=== PATIENT | female | born 1955 | race Caucasian/White ===

== ENCOUNTER 2017-07-14 08:27 | Emergency (ER) | payer MEDICARE, MEDICAID ==
--- NOTE | 2017-07-14 09:18 | RAD ---
PORTABLE UPRIGHT FRONTAL CHEST RADIOGRAPH: DATE: 07/14/17. COMPARISON: 10/07/14. HISTORY: Headache and increasing shortness of breath. FINDINGS: There is no pneumothorax or pleural fluid and no focal consolidation or alveolar edema. Heart and me diastinal contours appear within normal limits. IMPRESSION: No acute findings. POS: [facility]
[2017-07-14] MEDS ORDERED: Amlodipine 5 MG TAB ONE (09:53)
[2017-07-14] MEDS ORDERED: Acetaminophen 500 MG TAB ONE (09:53)
--- NOTE | 2017-07-14 10:03 | CT ---
HEAD CT WITHOUT CONTRAST: Date: 07-14-17 Comparison: 10-07-14 History: Headache and shortness of breath. Technique: Serial axial CT imaging at 5 mm intervals from vertex through skull base without contrast. FINDINGS: The imaged paranasal sinuses and mastoid air cells are well aerated. There is atherosclerotic calcifi cation of the cavernous carotid arteries. There is no displaced calvarial fracture. There is extensive encephalomalacia involving the left cerebral hemisphere, evidence of prior extensi ve left MCA infarction. Hypodensity noted within the posterior inferior left cerebellar hemisphere, c onsistent with areas of prior ischemia/insult as well. No intracranial hemorrhage, midline shift, or mass effect. IMPRESSION: Stable head CT as detailed above. No intracranial hemorrhage or displaced calvarial fracture. POS: [facility]
[2017-07-14 10:24] LABS: Bilirubin Negative (Negative); Blood, Urine Small (Negative); Glucose, Urine (Dipstick) Negative (Negative); Ketone, Urine Negative (Negative); Nitrite Negative (Negative); Protein, Urine (Dipstick) 300 mg/dL (Neg-Trace); Urobilinogen 0.2 mg/dL (0.2-1.0)
[2017-07-14 10:26] LABS: Bacteria/HPF None Seen HPF (None Seen); Hyaline Casts/LPF 0-3 HYALINE CAST LPF (0-3 Hyaline); Squamous Epithelial 0-3 HPF (0-3); WBC/HPF 0-3 HPF (0-3)
[2017-07-14] MEDS ORDERED: methylPREDNISolone Sod Succ/PF 125 MG/2 ML VIAL ONE (10:56)
[2017-07-14] MEDS ORDERED: Water For Inject, Bacteriostat 30 ML ONE (10:57)
[2017-07-14 11:24] LABS: #Basophils 0.1 thou/uL (0.0-0.2); #Lymphocytes 2.6 thou/uL (1.20-3.40); #Monocytes 1.2 thou/uL (0.11-0.59); #Neutrophils 9.9 thou/uL (1.40-6.50); %Basophils 0.5 % (0.0-1.0); %Eosinophils 0.3 % (0.0-10.0); %Lymphocytes 18.7 % (21.0-51.0); %Monocytes 8.4 % (0.0-10.0); Red Blood Cell (RBC) Count 4.09 mill/uL (4.20-5.40); White Blood Cell (WBC) Count 13.7 thou/uL (4.8-10.8)
[2017-07-14 11:37] LABS: PTT 59.3 SEC (22.9-36.1); Prothrombin Time 27.5 SEC (12.0-14.7)
[2017-07-14 11:49] LABS: ALT (SGPT) 40 U/L (8-55); AST (SGOT) 43 U/L (5-34); Alkaline Phosphatase 121 U/L (40-150); Anion Gap 17 mmol/L (10-20); BUN (Urea Nitrogen) 15 mg/dL (9.8-20.1); Bilirubin, Total 0.5 mg/dL (0.2-1.2); CK (CPK) 53 U/L (29-168); Calc. Creatinine Clearance 0 mL/min (70-130); Calcium 9.3 mg/dL (7.8-10.44); Carbon Dioxide 23 mmol/L (22-29); Chloride 100 mmol/L (98-107); Estimated GFR-MDRD 66; Globulin 3.7 g/dL (2.4-3.5); Protein, Total 7.6 g/dL (6.0-8.3)
[2017-07-14 12:07] LABS: Troponin I Less than 0.010 ng/mL (< 0.028)
--- NOTE | 2017-07-16 15:40 | EKG ---
Test Reason : Blood Pressure : / mmHG Vent. Rate : 110 BPM Atrial Rate : 110 BPM P-R Int : 176 ms QRS Dur : 100 ms QT Int : 344 ms P-R-T Axes : 066 067 034 degrees QTc Int : 465 ms Sinus tachycardia with occasional Premature ventricular complexes Otherwise normal ECG Confirmed by JONI ALVARADO D.O. ([id number]), supervising film or videotape editor ALMAS ROJO ([id number] on 07/16/2017 3:39:56 PM Referred By: Confirmed By:JONI ALVARADO D.O.
== END 2017-07-14 14:47 | disposition home or self-care (01) ==
LOC: ERS 08:27
DX: J44.1 Chronic obstructive pulmonary disease with (acute) exacerbation (principal); J20.9 Acute bronchitis, unspecified; J44.0 Chronic obstructive pulmonary disease with (acute) lower respiratory infection; I10 Essential (primary) hypertension; D50.9 Iron deficiency anemia, unspecified; E11.9 Type 2 diabetes mellitus without complications; E78.2 Mixed hyperlipidemia; Z79.84 Long term (current) use of oral hypoglycemic drugs; Z79.899 Other long term (current) drug therapy; Z79.01 Long term (current) use of anticoagulants; Z86.73 Personal history of transient ischemic attack (TIA), and cerebral infarction without residual deficits
CPT/HCPCS: 36415; 51701; 70450; 71010; 80053; 81003; 81015; 82550; 82553; 83880; 84484; 85025; 85379; 85610; 85730; 93005; 96374; A4353; J2930; J7620

== ENCOUNTER 2019-12-23 15:59 | Inpatient (IN) | payer MEDICARE, MEDICAID, OTHER ==
[2019-12-23] MEDS ORDERED: Acetaminophen 325 MG TAB PO PRN (16:47)
[2019-12-23] MEDS ORDERED: CCU Electrolyte Replacement 1 EACH IVPB ONE (16:47)
[2019-12-23] MEDS ORDERED: Fentanyl BOLUS 250 ML IVPB PRN (16:59)
[2019-12-23] MEDS ORDERED: DISCONTINUE PREVIOUS NARCOTIC PAIN MEDICATIONS AND BENZODIAZEPINES FS SCH (16:59)
[2019-12-23] MEDS ORDERED: Propofol BOLUS 1,000 MG/100 ML VIAL IV PRN (16:59)
[2019-12-23] MEDS ORDERED: Morphine 2 MG/ML SYRINGE SLOW IVP PRN (16:59)
[2019-12-23] MEDS ORDERED: Ventilator Sedation Protocol 1 EACH FS SCH (17:00)
[2019-12-23] MEDS ORDERED: PHOS-NAK 1 PKT PACK PO PRN ×2 (17:05)
[2019-12-23] MEDS ORDERED: Magnesium 2 GM/50 ML 2 GM in Premix Bag 1 BAG IVPB PRN (17:05)
[2019-12-23] MEDS ORDERED: Potassium Chloride 40 MEQ in Sodium Chloride 0.9% 250 ML 250 ML IVPB PRN (17:05)
[2019-12-23] MEDS ORDERED: Magnesium Oxide 400 MG TAB PO PRN ×2 (17:05)
[2019-12-23] MEDS ORDERED: Potassium Chloride 20 MEQ TAB PO PRN (17:05)
[2019-12-23] MEDS ORDERED: Potassium Phosphate 15 MMOL in Sodium Chloride 0.9% 250 ML 250 ML IV PRN (17:05)
[2019-12-23] MEDS ORDERED: Potassium Phosphate 9 MMOL in Sodium Chloride 0.9% 100 ML IVPB PRN (17:05)
[2019-12-23] MEDS ORDERED: CCU ELECTROLYTE REPLACEMENT PROTOCOL FS PRN (17:05)
[2019-12-23] MEDS ORDERED: Potassium Phosphate 12 MMOL in Sodium Chloride 0.9% 250 ML 250 ML IV PRN (17:05)
--- NOTE | 2019-12-23 17:05 | PDOC.FPRHP ---
- History of Present Illness Chief Complaint: Transfer from [facility] due to intubation History of Present Illness: 64 yo female admitted to CCU from [facility] due to intubated status. Patient was admitted on 12/18 due to right lower extremity cellulitis. She was placed on Vanc and Cefepime. Per documentation, cellulitis improved. However, today on patient was found to be altered and had a CO2 of greater than 60 and not able to protect her airway. At that time, it was decided the patient was to be intubated and transferred to [facility] for CCU admission. No other history able to be obtained due to patient's mental status and no other physician contact. - Allergies/Adverse Reactions Allergies Allergy/AdvReac Type Severity Reaction Status Date / Time codeine Allergy Verified 12/20/19 17:31 - Home Medications Medication Instructions Recorded Confirmed Type Amlodipine [Norvasc] 10 mg PO DAILY 10/07/14 10/07/14 History Cholecalciferol (Vitamin D3) 2,000 unit PO DAILY 10/07/14 10/07/14 History [Vitamin D3] Docusate [Colace] 100 mg PO BID 10/07/14 10/07/14 History Donepezil HCl [Aricept] 10 mg PO HS 10/07/14 10/07/14 History Ferrous Sulfate [Iron] 325 mg PO BID 10/07/14 10/07/14 History Glimepiride [Amaryl] 2 mg PO QAM- 10/07/14 10/07/14 History Insulin Glargine,Hum.Rec.Anlog 26 unit SC 10/07/14 10/07/14 History [Lantus Solostar] Multivitamin [Multi-Vitamin Daily] 1 tablet PO DAILY 10/07/14 10/07/14 History Pravastatin Sodium [Pravachol] 40 mg PO HS 10/07/14 10/07/14 History Promethazine HCl [Phenergan] 25 mg IM Q6HR PRN 10/07/14 10/07/14 History Warfarin Sodium [Coumadin] 6 mg PO DAILY 10/07/14 10/07/14 History cloNIDine [Catapres] 0.1 mg PO Q6H PRN 10/07/14 10/07/14 History cloNIDine [Catapres] 0.2 mg PO TID 10/07/14 10/07/14 History metFORMIN HCl 500 mg PO BID-WM 10/07/14 10/07/14 History traMADol HCl [Tramadol HCl] 50 mg PO BID 10/07/14 10/07/14 History traZODone HCl 75 mg PO HS 10/07/14 10/07/14 History Acetaminophen [Tylenol Regular 650 mg PO Q4H PRN #0 tab 10/08/14 Rx Strength] Glucagon 1 mg IM PRN PRN #0 vial 10/08/14 Rx HumaLOG [HumaLOG Vial] 0 units SC .MILD SLIDING SCALE PRN 10/08/14 Rx #0 vial Lisinopril [Zestril] 20 mg PO BID #0 tab 10/08/14 Rx - History PMHx: Asthma, Dementia, DM2, , HLD, Lymphedema, CVA PSHx: Unable to be obtained FHx: Unable to be obtained Social: Lives in [place]. History of former smoking. No other history able to be obtained. - Review of Systems ROS unobtainable: due to mental status - Vital signs BP: 155/77 HR: 102 RR: 24 Tmax: 98.0 Pox: 90% on Mech Vent Wt: 113 kg - Physical Exam Constitutional: NAD (Currently intubated and sedated) -HEENT: ET in place Heart: RRR, normal S1/S2 Lungs: no respiratory distress, good air movement -Lungs: wheezing throughout Abdomen: soft, non-tender, bowel sounds present, no masses/distention Musculoskeletal: other (unable to be fully evaluated) Neurological: other -Neurological: intubated and sedated Skin: other -Skin: Right lower extremity swelling and redness. Heme/Lymphatic: no unusual bruising or bleeding, no purpura, no petechia, other -Psychiatric: intubated and sedated FMR H&P: Results - Labs Result Diagrams: 12/23/19 18:04 12/23/19 18:04 [facility]MR H&P: A/P - Problem List (1) Sepsis Current Visit: Yes Status: Acute Code(s): A41.9 - SEPSIS, UNSPECIFIED ORGANISM (2) Cellulitis Current Visit: Yes Status: Acute Code(s): L03.90 - CELLULITIS, UNSPECIFIED (3) History of Coumadin therapy Current Visit: Yes Status: Acute Code(s): Z92.29 - PERSONAL HISTORY OF OTHER DRUG THERAPY (4) Acute respiratory failure with hypoxia Current Visit: Yes Status: Acute Code(s): J96.01 - ACUTE RESPIRATORY FAILURE WITH HYPOXIA (5) Hypertension Current Visit: Yes Status: Acute Code(s): I10 - ESSENTIAL (PRIMARY) HYPERTENSION (6) Diabetes mellitus Current Visit: Yes Status: Acute Code(s): E11.9 - TYPE 2 DIABETES MELLITUS WITHOUT COMPLICATIONS (7) History of CVA (cerebrovascular accident) Current Visit: Yes Status: Acute Code(s): Z86.73 - PRSNL HX OF TIA (TIA), AND CEREB INFRC W/O RESID DEFICITS - Plan Sepsis 2/2 to Cellulitis - Continued Vancomycin and Cefepime 12/18 - Cultures from outside ED no growth to date - Consider repeat culture if no improvement occurs - Supportive care Acute respiratory failure with hypoxia - Currently on mechanical ventilation - Will rule out DVT and consider PE evaluation as well however chronic Coumadin use and previous INR in records show 1.7 - Consulted Pulmonology, appreciate recs History of Coumadin therapy - Unclear history - INR at previous facility subtherapeutic - Will restart - Consider therapeutic lovenox if needed Hypertension - Monitor and restart medications as appropriate DM2 - Accuchecks - SSI - Restart home regimen as appropriate Dementia - Unknown baseline - Will contact family for further direction Hx of CVA - Right sided deficits - Occurred in 2011 PCP: KALIN Rahman Disposition: Guarded, will admit to CCU for further evaluation and management. Patient was seen and evaluated with Dr. Memo Mg MD, FMR attending, who is in agreement with plan. Addendum - Attending - Attending Attestation Date/Time: 12/23/19 2846 I personally evaluated the patient and discussed the management with Dr. Rowe. I agree with the History, Examination, Assessment and Plan documented above with any addition or exceptions noted below. Patient here after acute hypercapnic respiratory failure while admitted for sepsis 2/2 cellulitis. It is currently uncertain why she may have decompensated. She has no known history of CHF and was not receiving narcotics or other sedatives at her other hospital. She developed respiratory distress, was intubated, and transferred here for higher level of care. On exam, she is oxygenating well on ventilator, I believe 60% FiO2. She is morbidly obese, and there are markings consistent with tracking of RLE cellulitis. Patient will be admitted for hypercapnia, currently ventilated. Pulm on board. Check labs, CXR. Continue antibiotics for cellulitis, will obtain LE dopplers to R/O DVT. Further mgmt pending clinical course. We are otherwise unaware of her current metabolic and infectious status and will check labs and modify plan as needed.
[2019-12-23 17:14] LABS: Actual Bicarbonate (HCO3a) 30.6 mEq/L (22-28); Base Excess (BEa) 2.8 mEq/L (-2.0 to +3.0); Calcium, Ionized 1.29 mmol/L (1.12-1.30); Carboxyhemoglobin (COHb) 0.7 gm% (0.0-3.0); Potassium - ABG Lab 3.71 mmol/L (3.70-5.30)
[2019-12-23 17:17] LABS: CO2 Tension 63.4 mmHg (35.0-45.0)
[2019-12-23 17:18] LABS: Puncture Site RRA
[2019-12-23] MEDS: Lorazepam 2 MG/ML VIAL SLOW IVP PRN ×2 (17:26→22:47)
[2019-12-23] MEDS: Cefepime 2 GM in Sodium Chloride 0.9% 100 ML IVPB SCH (17:26)
--- NOTE | 2019-12-23 18:11 | PDOC.BPN ---
- Brief Progress Note Patient's PCP found to be Dr. Rahman. Contacted Dr. Lee with hospitalist service. [facility] Hospitalist will assume care at 0700 on 12/24/19. Dr. Memo Mg, FMR attending, aware and in agreement with plan.
[2019-12-23 18:12] LABS: Hemoglobin 10.9 g/dL (12.0-16.0); Mean Corpuscular HGB CONC 32.6 g/dL (32.0-36.0); Mean Corpuscular Hemoglobin 32.6 pg (27.0-31.0); Mean Platelet Volume 8.6 fL (7.4-10.4); Platelet Count 226 thou/uL (130-400); RBC Distribution Width 13.5 % (11.5-14.5); Red Blood Cell (RBC) Count 3.34 mill/uL (4.20-5.40); White Blood Cell (WBC) Count 15.7 thou/uL (4.8-10.8)
[2019-12-23 18:13] LABS: Actual Bicarbonate (HCO3a) 29.9 mEq/L (22-28); Base Excess (BEa) 3.4 mEq/L (-2.0 to +3.0); CO2 Tension 54.7 mmHg (35.0-45.0); Calcium, Ionized 1.28 mmol/L (1.12-1.30); Carboxyhemoglobin (COHb) 0.5 gm% (0.0-3.0); Potassium - ABG Lab 3.54 mmol/L (3.70-5.30); pH, Arterial 7.36 (7.35-7.45)
[2019-12-23 18:26] LABS: Band 7 % (5-11); Basophilic Stippling SLIGHT = 1-2 cells (100X) (None Seen); Lymphocytes 11 % (21-51); MDiff Complete? YES; Metamyelocyte 3 % (0-0); Monocytes 7 % (0-10); Neutrophil 72 % (42-75); Nucleated RBC 1 % (0); Platelet Morphology Comment Appears Adequate; Polychromasia SLIGHT = 2-3 cells (100X) (0-2/hpf)
[2019-12-23 18:28] LABS: ALT (SGPT) 24 U/L (8-55); AST (SGOT) 29 U/L (5-34); Albumin 2.5 g/dL (3.4-4.8); Alkaline Phosphatase 121 U/L (40-110); Anion Gap 14 mmol/L (10-20); BUN (Urea Nitrogen) 48 mg/dL (9.8-20.1); Bilirubin, Total 0.2 mg/dL (0.2-1.2); Calc. Creatinine Clearance 89 mL/min (70-130); Calcium 9.2 mg/dL (7.8-10.44); Carbon Dioxide 23 mmol/L (23-31); Chloride 117 mmol/L (98-107); Estimated GFR-MDRD 50; Globulin 3.1 g/dL (2.4-3.5); Glucose 359 mg/dL (80-115); Potassium 4.7 mmol/L (3.5-5.1); Protein, Total 5.6 g/dL (6.0-8.3); Sodium 149 mmol/L (136-145)
[2019-12-23 18:30] LABS: O2 Tension (PaO2), arterial 52.5 mmHg (> 80.0); Puncture Site LBA
[2019-12-23 18:31] LABS: ALV-art Gradient 592.125 (0-20)
[2019-12-23] MEDS: HumaLOG 300 UNITS/3 ML VIAL SC PRN (18:36)
--- NOTE | 2019-12-23 19:13 | RAD ---
SINGLE VIEW OF THE CHEST: Comparison: 12-20-2019 History: Intubated patient with respiratory failure. FINDINGS: Single view of the chest shows an enlarged cardiomediastinal silhouette. There is an endotracheal tub e with its tip in the lower border of the clavicles. NG courses off the anterior aspect of the film. There is symmetric volume loss in the left thorax compared to the prior radiograph from three days ag o. There appears to be a moderate left pleural effusion with adjacent atelectasis. No right sided inf iltrates are seen. IMPRESSION: 1. Appropriate position of endotracheal tube and NG tube. 2. Left pleural effusion with adjacent atelectasis. POS: [facility]
[2019-12-23] MEDS: Propofol 1,000 MG/100 ML VIAL IV PRN (19:23)
[2019-12-23] MEDS ORDERED: Acetylcysteine 20% 200 MG/ML 30 ML VIAL ONE (22:08)
[2019-12-23] MEDS: Vancomycin 1 GM in Premix Bag 1 BAG IVPB SCH (22:29)
--- NOTE | 2019-12-24 00:38 | PRG ---
DATE OF SERVICE: 12/23/2019 I was called by the nurses following a bronchoscopy that the patient's peak airway pressures have increased from around upper 20s to as high as 50. Stat chest x-ray was requested. I returned to the hospital and reviewed the x-ray. There was now good aeration and expansion of the left lung with apparent increased consolidative markings in the right lung base. There is no evidence of pneumothorax as I thought might be present having attempted a left basilar thoracentesis without success. We will continue to monitor. Her airflow dynamics have been altered, and now PEEP pressures are running about 28 to 34. She is still on 100% oxygen and saturations are approximately 92. We will continue to observe. Hopefully, the right increased markings are related to bronchoscopy and washings. Duplex sonogram has also just been completed of the right leg. While not ideal, there is evidence of augmentation at multiple levels without obvious DVT. Job ID: [id number]
[2019-12-24] MEDS: Propofol 1,000 MG/100 ML VIAL IV PRN ×5 (00:43→19:46)
--- NOTE | 2019-12-24 02:07 | OP ---
DATE OF PROCEDURE: 12/23/2019 PROCEDURES PERFORMED: Thoracentesis and left subclavian central line. DESCRIPTION OF PROCEDURE: Consent was obtained from the patient's family. The thoracentesis was attempted first. Due to the size and intubated status, the procedure was done with the patient in a supine position via the posterior axillary approach on the left. Sonogram showed fluid. Local anesthesia was then obtained and thoracentesis catheter inserted. Unfortunately, fluid was not obtained on two passes and the procedure was subsequently terminated. The left upper chest was then prepped and draped in the usual fashion in anticipation of central line placement. Topical lidocaine anesthesia was used following skin prep and drape. The subclavian vein was cannulated, wire inserted, and following dilator, the catheter was inserted without complication. All ports were aspirated and good blood return and flow was noted. The catheter was secured in place. A dressing was applied. X-ray is obtained and is pending at this time. Job ID: [id number]
--- NOTE | 2019-12-24 02:07 | OP ---
DATE OF PROCEDURE: 12/23/2019 PREOPERATIVE DIAGNOSIS: Opacification of the left hemithorax consistent with mucus plugging. POSTOPERATIVE DIAGNOSIS: Opacification of the left hemithorax consistent with mucus plugging. DESCRIPTION OF PROCEDURE: Informed consent was obtained from the patient's daughter. Procedure performed in the ICU under continuous hemodynamic monitoring. Sedation was provided by propofol, which was already running for the patient ventilator sedation and no dose adjustment was made during the procedure. A bronchoscope was inserted through the existing endotracheal tube. Tip of the tube is in good position proximal to the ton. The main ton is unremarkable. Right upper lung, right middle lung, and right lower lung showed no obstruction, but are diffusely edematous and erythematous. Very tenacious mucus plugs are present in the left bronchus. These were copiously irrigated with Mucomyst, and were so thick that they were removed in block through the tube externally. The bronchoscope was then reinserted and additional Mucomyst lavage was performed. There was no evidence of endobronchial obstruction. Specimens are obtained for culture. The patient tolerated the procedure well with good blood pressure and pulse oximetry recording throughout. At the termination of the procedure, she is returned to previous ventilator settings. We plan repeat x-ray tomorrow and additional bronchoscopy may be required. Job ID: [id number]
[2019-12-24] MEDS: HumaLOG 300 UNITS/3 ML VIAL SC PRN ×6 (02:26→23:57)
[2019-12-24 03:58] LABS: INR-International Normal Ratio 2.6; Prothrombin Time 27.3 sec (12.0-14.7)
[2019-12-24 04:01] LABS: Band 20 % (5-11); Hemoglobin 9.9 g/dL (12.0-16.0); Lymphocytes 11 % (21-51); MDiff Complete? YES; Mean Corpuscular Hemoglobin 32.3 pg (27.0-31.0); Mean Platelet Volume 8.6 fL (7.4-10.4); Metamyelocyte 1 % (0-0); Monocytes 7 % (0-10); Neutrophil 61 % (42-75); Platelet Count 300 thou/uL (130-400); Platelet Morphology Comment Appears Adequate; RBC Distribution Width 13.6 % (11.5-14.5); Red Blood Cell (RBC) Count 3.07 mill/uL (4.20-5.40); White Blood Cell (WBC) Count 15.6 thou/uL (4.8-10.8)
[2019-12-24 04:03] LABS: ALT (SGPT) 21 U/L (8-55); AST (SGOT) 19 U/L (5-34); Albumin 2.4 g/dL (3.4-4.8); Alkaline Phosphatase 106 U/L (40-110); Anion Gap 11 mmol/L (10-20); BUN (Urea Nitrogen) 50 mg/dL (9.8-20.1); Bilirubin, Total 0.3 mg/dL (0.2-1.2); Calc. Creatinine Clearance 83 mL/min (70-130); Calcium 8.7 mg/dL (7.8-10.44); Carbon Dioxide 32 mmol/L (23-31); Chloride 113 mmol/L (98-107); Estimated GFR-MDRD 46; Globulin 2.8 g/dL (2.4-3.5); Glucose 279 mg/dL (80-115); Potassium 3.1 mmol/L (3.5-5.1); Protein, Total 5.2 g/dL (6.0-8.3); Sodium 153 mmol/L (136-145)
[2019-12-24] MEDS: Cefepime 2 GM in Sodium Chloride 0.9% 100 ML IVPB SCH ×2 (05:06→17:11)
[2019-12-24] MEDS: fentaNYL Citrate/PF 2,000 MCG in Sodium Chloride 0.9% 60 ML IV SCH ×2 (05:37→20:59)
--- NOTE | 2019-12-24 07:01 | CON ---
DATE OF CONSULTATION: 12/23/2019 CHIEF COMPLAINT: Respiratory failure. HISTORY OF PRESENT ILLNESS: Ms. Bird is a 64-year-old female who is a long- term resident of a local [facility]. She had a stroke in 2007 with residual deficit affecting both cognition, speech and ambulation. Her family states that she has not been in contact with them much in the time since COVID caused visitation restrictions. They were not aware of significant change in her status until several days ago when the [facility] called to report that she had developed a cellulitis of the right leg. She was transferred to [facility] and admitted with a diagnosis of cellulitis. Her COVID test there was reported to be negative. She had progression of symptoms despite antibiotics and had worsening of her respiratory distress. She was given BiPAP support during the night and high-flow nasal oxygen during the day. This continued for several days without significant recovery. Today, however, the patient was noted to be more somnolent and having increased respiratory distress. A decision was made at that time to intubate her and she was then transferred to [facility] for admission and additional care. I do not have access to their EMR PAST MEDICAL HISTORY: Remarkable for CVA in 2007 with residual deficits. She has a long smoking history, having quit at the time of her stroke. She has a history of chronic circulation issues of the right leg and has had previous bouts of cellulitis. She has a history of diabetes. She has been on Coumadin anticoagulation since the time of her stroke reportedly for stroke prophylaxis and without known history of atrial fibrillation. REVIEW OF SYSTEMS: Unobtainable from the patient. Symptoms preceding her admission are unclear and unavailable to me at this time. Remote symptoms and findings have been reviewed with her family by phone. FAMILY HISTORY: Noncontributory. PHYSICAL EXAMINATION: GENERAL: The patient is an obese female, appearing older than her stated age. She is orally intubated. VITAL SIGNS: Her blood pressure is 138/66, heart rate 92, saturation 91%, and respiratory rate 29. She is receiving ventilatory care. HEENT: No adenopathy. She has no JVD. Cranial nerves cannot be tested. LUNGS: Rhonchi with some decreased breath sounds in the left chest. HEART: Regular rate and rhythm. She has a systolic murmur along the left heart border. ABDOMEN: Soft. There is no organomegaly. She is obese. EXTREMITIES: Demonstrate cellulitis of the right leg up to the mid thigh. This is marked and has not exceeded the landry which has previously been placed. It is erythematous, but not exceedingly warm. She has 1+ edema on the left. NEUROLOGIC: She is intubated and sedated and does not respond to verbal stimuli at this time. LABORATORY DATA: White count 15,700, hemoglobin is 10.9. Differential includes 72 neutrophils and 7 bands. Blood gas includes pH of 7.36, CO2 of 54, PO2 of 52, and bicarbonate of 30. This was obtained with a rate of 14 on 100% tidal volume of 500. Electrolytes include sodium 149, potassium 4.7, chloride 117, anion gap is 14, CO2 is 23, BUN 48, creatinine 1.1, and glucose is 359. Albumin has reduced to 2.5. Liver tests are normal. Chest x-ray shows consolidation and effusion in the left base, which was not seen on the x-ray of 3 days previously. IMPRESSION: 1. Respiratory failure. The patient has a history of chronic obstructive pulmonary disease, but has not been in this degree of air hunger until now. She was receiving BiPAP during the night and high-flow nasal oxygen during the day while at [facility] prior to intubation and transfer. I suspect that her worsening may in fact be related to the development of a pneumonia, either hematogenously spread or related to aspiration. 2. Cellulitis, on empiric broad-spectrum antibiotics. 3. History of previous stroke with residual deficit. 4. Diabetes. 5. Past tobacco abuse. PLAN: The patient is admitted to the intensive care unit and is receiving ventilatory support. She has a markedly elevated alveolar to arterial oxygen gradient. She has been on anticoagulation therapy and a DVT/PE is felt to be less likely. She does have consolidation in the left base and what appears to be an effusion. I have obtained consent from the patient's family to do a sonogram and thoracentesis if indicated. We will otherwise continue supportive therapy. The family wishes her to be full code status at least for the foreseeable future. Thank you for this consultation. Pulmonary Service will continue to follow and offer additional assistance. Job ID: [id number] MTDD
[2019-12-24 07:30] LABS: Actual Bicarbonate (HCO3a) 34.2 mEq/L (22-28); Base Excess (BEa) 9.5 mEq/L (-2.0 to +3.0); CO2 Tension 47.4 mmHg (35.0-45.0); Calcium, Ionized 1.21 mmol/L (1.12-1.30); Carboxyhemoglobin (COHb) 0.4 gm% (0.0-3.0); Hemoglobin (Hb) 10.5 g/dL (12.0-16.0); Potassium - ABG Lab 2.99 mmol/L (3.70-5.30); pH, Arterial 7.48 (7.35-7.45)
[2019-12-24 07:33] LABS: O2 Tension (PaO2), arterial 54.3 mmHg (> 80.0); Puncture Site L.R.
--- NOTE | 2019-12-24 07:37 | RAD ---
SINGLE VIEW CHEST: Date: 12/23/2019 Time: 2105 hours HISTORY: Central line placement. FINDINGS: Single view of the chest shows a normal sized cardiomediastinal silhouette. The lines and tubes are u nchanged in position. There is significant improvement in aeration of the left lung compared to the p rior radiograph. There appears to be a moderate right pleural effusion. A small left pleural effusion is seen. IMPRESSION: Bilateral pleural effusions with significant improved aeration of the left lung. POS: [facility]
[2019-12-24] MEDS: Potassium Chloride 40 MEQ in Premix Bag 1 BAG IVPB PRN (07:38)
--- NOTE | 2019-12-24 07:46 | RAD ---
SINGLE VIEW OF THE CHEST: COMPARISON: 12/23/2019. HISTORY: Central line placement. FINDINGS: A single view of the chest shows complete opacity of the left thorax. The endotracheal tube and NG t ube are unchanged in position. There is a left subclavian central venous catheter with its tip in th e superior vena cava. No pneumothorax is appreciated. There appears to be a small right pleural eff usion. IMPRESSION: 1. Status post central line placement without evidence of complication. 2. Complete opacity in the left thorax. POS: [facility]
--- NOTE | 2019-12-24 07:56 | ULT ---
RIGHT LOWER EXTREMITY VENOUS ULTRASOUND: Date: 12/23/2019 COMPARISON: None. HISTORY: Right lower extremity pain and swelling. TECHNIQUE: Multiplanar Moncada scale and color Doppler images were obtained in a right lower extremity venous ultra sound. Spectral analysis of the Doppler waveforms were performed. FINDINGS: The right common femoral vein, profunda femoral vein, superficial femoral vein, and popliteal vein ar e normal in appearance without visible thrombus. These vessels demonstrate normal compression, flow, and augmentation. The posterior tibial vein and greater saphenous vein are also patent. IMPRESSION: No evidence of deep venous thrombosis. POS: [facility]
--- NOTE | 2019-12-24 08:01 | RAD ---
Chest one view HISTORY: Dyspnea. Intubated. Follow-up. COMPARISON: 12/23/2019. FINDINGS: Cardiac silhouette is magnified by projection and partially obscured by bilateral pleural f luid and patchy bibasilar infiltrate. Mediastinum is midline with aortic calcification. Lines and tubes appear unchanged in position. Pulmonary vasculature is engorged. Calcified granulomata are consistent with healed granulomatous disease. No evidence of pneumothorax. IMPRESSION : Pulmonary vascular congestion, pleural fluid, and other findings are stable.
--- NOTE | 2019-12-24 08:13 | PRG ---
DATE OF SERVICE: 12/23/2019 X-ray obtained following central line placement and attempted thoracentesis show complete opacification of the left hemithorax. There is volume loss on the left with associated hyperinflation. We are noting increasing difficulty maintaining oxygen saturation despite ventilation with 100%. On exam, the patient has absent breath sounds and no chest excursion on the left with ventilation. It is my expectation that the rapid changes suggest a need for bronchoscopy to clear probable mucus impaction. I have called the patient's daughter and reviewed with her the radiographic findings as well as treatments provided to this point. She agrees. She also understands that there may well need to be repeat bronchoscopy until she is totally clear. Job ID: [id number]
[2019-12-24] MEDS: Vancomycin 1 GM in Premix Bag 1 BAG IVPB SCH ×2 (08:27→19:52)
[2019-12-24] MEDS ORDERED: Pantoprazole 40 MG GRANULES PACKET PER TUBE SCH (09:00)
[2019-12-24] MEDS ORDERED: Enoxaparin Sodium 40 MG/0.4 ML SYRINGE SC SCH (09:00)
[2019-12-24] MEDS ORDERED: Prevnar 13-Val Conj/PF 0.5 ML SYRINGE IM ONE (09:00)
[2019-12-24 09:22] LABS: Magnesium 2.2 mg/dL (1.6-2.6)
[2019-12-24] MEDS: Sodium Chloride 0.45% 1,000 ML IV SCH ×2 (09:27→19:51)
[2019-12-24] MEDS: Famotidine/PF 20 mg/2ml Vial SLOW IVP SCH ×2 (09:27→19:51)
[2019-12-24 09:29] LABS: Phosphorus 1.9 mg/dL (2.3-4.7)
--- NOTE | 2019-12-24 09:51 | PRG ---
DATE OF SERVICE: 12/24/2019 SUBJECTIVE: Sussy Bird is a 64-year-old female, who is intubated for progressive respiratory failure. She now is intubated in the vent, is sedated. She had difficulty maintaining saturation. She was in a shelter, has had residual left-sided CVA from a previous stroke. She has had cellulitis at the [facility] and was transferred over here. COVID test was negative. She was placed on BiPAP without much improvement. She became progressively worse. She is intubated. Her daughter is at the bedside. She tells me that she sees a local doctor by the name of Dr. Rahman and has no other doctors on the list. Daughter states she is a full code, former smoker, severely deconditioned. PHYSICAL EXAMINATION: GENERAL: Sedated, vented. VITAL SIGNS: Pulse 94, blood pressure 187/87, saturations are 92 to 96, respirations 20. CHEST: Decreased breath sounds. No wheezing. CARDIAC: Normal S1 and S2. No gallops. ABDOMEN: No mass. LABORATORY DATA: White count 15,000, hemoglobin and hematocrit are 9 and 31, platelet count 300. PO2 is 54, pCO2 rate of 14, on 70%, pressure support 10, PEEP of 8. Sodium 153, BUN and creatinine are 50 and 1.8, glucose 254. ASSESSMENT: Acute on chronic respiratory failure, bilateral pleural effusion, severe hypoxemia, status post atelectasis on bronchoscopy. Status post thoracentesis. PLAN: I have added steroids. Continue aggressive neb treatments. Continue broad-spectrum antibiotics. She is not weanable at this stage. It is probably from what I can understand. One-half hour of critical time. Job ID: [id number]
[2019-12-24 10:03] LABS: INR-International Normal Ratio 2.6; Prothrombin Time 27.9 sec (12.0-14.7)
--- NOTE | 2019-12-24 10:50 | PDOC.BPN ---
- Brief Progress Note Talked with Dr. Elias this morning to confirm transfer of care. Gave him overnight updates. He was aware of tfx. Answered all questioned.
[2019-12-24] MEDS: methylPREDNISolone Sod Succ 40 MG VIAL IVP SCH ×3 (11:17→23:47)
[2019-12-24] MEDS: NPH, Human Insulin Isophane 300 UNIT/3 ML VIAL SC SCH (21:17)
[2019-12-25] MEDS: Propofol 1,000 MG/100 ML VIAL IV PRN ×2 (00:03→04:15)
[2019-12-25 03:06] LABS: INR-International Normal Ratio 1.7; Prothrombin Time 20.3 sec (12.0-14.7)
[2019-12-25 03:25] LABS: Anion Gap 14 mmol/L (10-20); BUN (Urea Nitrogen) 46 mg/dL (9.8-20.1); Calc. Creatinine Clearance 83 mL/min (70-130); Calcium 8.5 mg/dL (7.8-10.44); Carbon Dioxide 32 mmol/L (23-31); Chloride 110 mmol/L (98-107); Estimated GFR-MDRD 45; Glucose 269 mg/dL (80-115); Sodium 152 mmol/L (136-145)
[2019-12-25] MEDS: HumaLOG 300 UNITS/3 ML VIAL SC PRN ×4 (03:55→23:41)
[2019-12-25] MEDS: Cefepime 2 GM in Sodium Chloride 0.9% 100 ML IVPB SCH ×2 (04:15→16:18)
[2019-12-25 04:21] LABS: Hypochromia SLIGHT = 6-15 cells (100X) (0-5/hpf); Lymphocytes 25 % (21-51); MDiff Complete? YES; Mean Corpuscular HGB CONC 31.6 g/dL (32.0-36.0); Mean Corpuscular Hemoglobin 31.9 pg (27.0-31.0); Mean Platelet Volume 8.8 fL (7.4-10.4); Neutrophil 75 % (42-75); Platelet Count 319 thou/uL (130-400); Platelet Morphology Comment Appears Adequate; RBC Distribution Width 13.5 % (11.5-14.5); Red Blood Cell (RBC) Count 3.12 mill/uL (4.20-5.40); White Blood Cell (WBC) Count 21.3 thou/uL (4.8-10.8)
[2019-12-25] MEDS: methylPREDNISolone Sod Succ 40 MG VIAL IVP SCH ×3 (05:34→21:07)
[2019-12-25] MEDS: Sodium Chloride 0.45% 1,000 ML IV SCH ×3 (05:37→17:12)
[2019-12-25 07:42] LABS: Actual Bicarbonate (HCO3a) 34.1 mEq/L (22-28); Base Excess (BEa) 7.5 mEq/L (-2.0 to +3.0); CO2 Tension 59.8 mmHg (35.0-45.0); Calcium, Ionized 1.14 mmol/L (1.12-1.30); Carboxyhemoglobin (COHb) 0.3 gm% (0.0-3.0); Hemoglobin (Hb) 10.4 g/dL (12.0-16.0); O2 Tension (PaO2), arterial 60.3 mmHg (> 80.0); Potassium - ABG Lab 4.22 mmol/L (3.70-5.30); pH, Arterial 7.37 (7.35-7.45)
[2019-12-25 07:54] LABS: Puncture Site L.R.
--- NOTE | 2019-12-25 07:58 | RAD ---
Chest one view HISTORY: Dyspnea. Intubated. Follow-up. COMPARISON: 12/24/2019. FINDINGS: Cardiac silhouette is magnified by projection and remains partially obscured by bilateral p leural fluid and bibasilar parenchymal opacity. Mediastinum is midline. Lines and tubes are unchanged in position. Pulmonary vasculature is engorged. No evidence of pneumothorax. store cashier leads overlie the chest. IMPRESSION : Pulmonary vascular congestion, pleural fluid, and other findings are stable.
[2019-12-25 09:05] LABS: Vancomycin, Trough 38.5 ug/mL
--- NOTE | 2019-12-25 09:06 | PDOC.HOSPP ---
- Subjective Encounter Date: 12/24/19 Encounter Time: 14:00 non-verbal Subjective: Patient seen and examined for Resp failure/Sepsis. On Vent. No overnight events - Objective Vital Signs & Weight: Vital Signs (12 hours) Temp Pulse Resp BP Pulse Ox 12/25/19 08:00 99.9 F H 12/25/19 06:51 105 H 140/62 12/25/19 06:50 106 H 14 98 12/25/19 06:00 14 12/25/19 04:00 99.8 F H 14 12/25/19 03:57 96 130/58 L 12/25/19 02:00 14 12/25/19 00:00 99.4 F 14 12/24/19 22:26 129 H 156/67 H 12/24/19 22:00 17 Weight Admit Weight 243 lb Weight 245 lb 13.047 oz Most Recent Monitor Data Heart Rate from ECG 119 NIBP 187/91 NIBP BP-Mean 123 Respiration from ECG 17 SpO2 97 I&O: 12/24/19 12/25/19 12/26/19 06:59 06:59 06:59 Intake Total 601 3168 Output Total 3285 2130 125 Balance -2684 1038 -125 Result Diagrams: 12/25/19 02:40 12/25/19 02:40 Additional Labs: Accuchecks 12/25/19 12/25/19 12/24/19 03:57 00:01 21:20 POC Glucose 258 H 300 H 354 H 12/24/19 12/24/19 18:04 11:20 POC Glucose 309 H 238 H Radiology Reviewed by me: Yes (CXR - reviewed) EKG Reviewed by me: Yes (Tele SR) Hospitalist ROS - Review of Systems ROS unobtainable: due to mental status - Medication Medications: Active Medications Generic Name Dose Route Start Last Admin Trade Name Freq PRN Reason Stop Dose Admin Albuterol/Ipratropium 3 ml 12/24/19 10:30 12/25/19 06:50 Duoneb NEB 3 ml [id number] NADINE Administration Enoxaparin Sodium 40 mg 12/24/19 09:00 12/24/19 08:26 Lovenox SC 40 mg 0900 NADINE Administration Famotidine 20 mg 12/24/19 09:00 12/24/19 19:51 Pepcid SLOW IVP 20 mg BID NADINE Administration Cefepime HCl 2 gm/ Sodium 100 mls @ 200 mls/hr 12/23/19 17:00 12/25/19 04:15 Chloride IVPB 100 mls 0500,1700 NADINE Administration Vancomycin HCl 1 gm/ Device 200 mls @ 200 mls/hr 12/23/19 21:00 12/24/19 19: 52 IVPB 200 mls Q12HR NADINE Administration Fentanyl Citrate 2,000 mcg/ 100 mls @ 0 mls/hr 12/23/19 16:59 12/24/19 20:59 Sodium Chloride IV 01/22/20 16:59 100 mls INF NADINE Administration Protocol Per Protocol Potassium Chloride 40 meq/ 100 mls @ 50 mls/hr 12/23/19 17:05 12/24/19 07:38 Device IVPB 100 mls ASDIR PRN Administration FOR SERUM K+ 2.5 - 3.5 Sodium Chloride 1,000 mls @ 100 mls/hr 12/24/19 09:15 12/25/19 05:37 1/2 Normal Saline IV 1,000 mls .Q10H NADINE Administration Insulin Human Lispro 0 units 12/25/19 01:04 12/25/19 03:55 Humalog SC 9 unit .AGGRESSIVE SLIDING PRN Administration AGGRESSIVE SLIDING SCALE Protocol Insulin Human NPH 15 unit 12/24/19 21:00 12/24/19 21:17 Humulin N SC 15 unit BID NADINE Administration Lorazepam 2 mg 12/23/19 16:59 12/23/19 22:47 Ativan SLOW IVP 01/22/20 16:59 2 mg Q1H PRN Administration Breakthrough agitation Propofol 1,000 mg 12/23/19 16:59 12/25/19 04:15 Diprivan IV 01/22/20 16:59 1,000 mg INF PRN Administration TO ACHIEVE GOAL RASS Protocol Sodium Chloride 10 ml 12/24/19 21:00 12/24/19 19:52 Flush - Normal Saline IVF 10 ml Q12HR NADINE Administration - Exam General Appearance: NAD General - other findings: on Vent Heart: RRR, no gallops, no rubs, normal peripheral pulses Respiratory: no wheezes, no rales, normal chest expansion, rhonchi Gastrointestinal: soft, normal bowel sounds, no guarding, no rigidity Extremities: no cyanosis, no clubbing Extremities - other findings: RLE edema/erythema Neurological - other findings: Neuro/Psych - cannot assess due to current mentation Hosp A/P - Plan DVT proph w/SCDs Severe Sepsis 2/2 to Cellulitis Acute respiratory failure with hypoxia/hypercapnia Hypertension DM2 Dementia h/o CVA Mild persistent Asthma Depression Chronic Anticoagulation Morbid Obesity BMI 40.9 CKD 3 Hypernatremia PLAN: Cont Vancomycin and Cefepime Monitor Vancomycin level Hold Lovenox since INR therapeutic Restart Warfarin if ok with Critical care Daily CXR/ABG/labs Cont Sliding scale Change acuchecks to Q4h Add NPH Cont supportive care Cont other meds as above Restart home meds once verified
[2019-12-25] MEDS: Vancomycin 1 GM in Premix Bag 1 BAG IVPB SCH (09:07)
[2019-12-25] MEDS ORDERED: cloNIDine 0.1 MG TAB PO PRN (09:12)
[2019-12-25] MEDS ORDERED: Vancomycin 1 GM in Premix Bag 1 BAG IVPB SCH (09:15)
--- NOTE | 2019-12-25 09:24 | PRG ---
DATE OF SERVICE: SUBJECTIVE: Sussy Bird is a 64-year-old morbidly obese female, who is intubated on the vent, remains agitated, still on Diprivan and fentanyl. OBJECTIVE: VITAL SIGNS: Pulse 118, blood pressure 171/79, sats 98%, respirations 15. I's and O's in the last 24 hours have been 3168 in and 2130 out. All cultures are so far negative. CHEST: Decreased breath sounds. No wheezing. No crackles. CARDIAC: No gallops. No murmurs. Sinus tach. ABDOMEN: Massive. EXTREMITIES: Chronic stasis changes. LABORATORY DATA: White count 21,000, H and H 10 and 31, platelet count 319. PO2 is 60, pCO2 of . Sodium 152, BUN and creatinine are 46 and 1.2. Glucose is elevated. ASSESSMENT AND PLAN: Respiratory failure, morbid obesity. Chronic stasis, probably diastolic dysfunction, probably sleep apnea, probably bilateral pleural effusion. CT of the chest is being ordered. Continue steroids, neb treatment, nutrition, PT. She is not weanable. Probably discontinue vancomycin tomorrow if her cultures are negative. Overall, prognosis is grave. Family wants everything to be done. This is one-half hour of critical time. Job ID: [id number]
[2019-12-25] MEDS: Enoxaparin Sodium 30 MG/0.3 ML SYRINGE SC SCH ×2 (09:28→21:07)
[2019-12-25] MEDS: Docusate 100 MG CAP PO SCH (09:29)
[2019-12-25] MEDS: Lisinopril 20 MG TAB PO SCH (09:29)
[2019-12-25] MEDS: Amlodipine 10 MG TAB PO SCH (09:29)
[2019-12-25] MEDS: Famotidine/PF 20 mg/2ml Vial SLOW IVP SCH ×2 (09:29→21:07)
[2019-12-25] MEDS: cloNIDine 0.1 MG TAB PO SCH ×2 (09:29→15:03)
[2019-12-25] MEDS: NPH, Human Insulin Isophane 300 UNIT/3 ML VIAL SC SCH (10:38)
--- NOTE | 2019-12-25 11:48 | CT ---
CT THORAX NONCONTRAST: DATE: 12/25/2019 HISTORY: 64-year-old female with respiratory failure. COMPARISON: none FINDINGS: ETT distal tip at mid thoracic trachea. Esophageal tube distal tip at least at distal stomach or alex roduodenal junction. Bilateral pleural effusions; right effusion occupies approximately 20-25% volume of right hemithoracic cavity, and the left occupies approximately 10- 15% volume. Adjacent con solidations at the posterior aspects of bilateral lower lobes of moderate to large size images, broadly abutting the pleural effusions. These probably represent passive atelectasis, although pneumo nate cannot be excluded. Scattered ill-defined patchy regions of groundglass attenuation in bilateral upper lobes are nonspeci fic, but one possibility is pulmonary interstitial edema. Cannot rule out viral pneumonia. No high-grade narrowing of trachea or bilateral mainstem bronchi. No thoracic aortic aneurysm. Minimal p ericardial effusion. No pneumothorax. No mediastinal lymphadenopathy. IMPRESSION: 1. Bilateral small pleural effusions, right greater than left. 2. Adjacent broad consolidations in the bilateral lower lobes, probably passive atelectasis, although pneumonia cannot be excluded. 3. Nonspecific scattered bilateral upper lobe groundglass densities. One possibility is pulmonary int erstitial edema. Cannot exclude viral pneumonia. 4. Endotracheal tube and esophagogastric tube.
[2019-12-25] MEDS: fentaNYL Citrate/PF 2,000 MCG in Sodium Chloride 0.9% 60 ML IV SCH (13:35)
[2019-12-25] MEDS ORDERED: NPH, Human Insulin Isophane 300 UNIT/3 ML VIAL SC SCH ×2 (13:45→21:00)
--- NOTE | 2019-12-25 16:46 | PDOC.HOSPP ---
- Subjective Encounter Date: 12/25/19 Encounter Time: 15:00 non-verbal Subjective: Patient seen and examined for resp failure. On Vent. Sedated. No overnight events - Objective Vital Signs & Weight: Vital Signs (12 hours) Temp Pulse Resp BP Pulse Ox 12/25/19 16:00 99.6 F 19 12/25/19 15:03 191/92 H 12/25/19 14:47 105 H 191/92 H 12/25/19 14:46 105 H 17 97 12/25/19 14:00 14 12/25/19 12:00 99.5 F 14 12/25/19 10:26 94 183/91 H 12/25/19 10:25 95 16 98 12/25/19 10:00 16 12/25/19 09:29 116 H 176/76 H 12/25/19 08:00 99.9 F H 16 98 12/25/19 06:51 105 H 140/62 12/25/19 06:50 106 H 14 98 12/25/19 06:00 14 Weight Admit Weight 243 lb Weight 245 lb 13.047 oz Most Recent Monitor Data Heart Rate from ECG 115 NIBP 168/113 NIBP BP-Mean 131 Respiration from ECG 22 SpO2 99 I&O: 12/24/19 12/25/19 12/26/19 06:59 06:59 06:59 Intake Total 601 3168 229 Output Total 3285 2130 1330 Balance -2684 1038 -1101 Result Diagrams: 12/25/19 02:40 12/25/19 02:40 Additional Labs: Accuchecks 12/25/19 12/25/19 12/25/19 16:12 12:14 03:57 POC Glucose 375 H 361 H 258 H 12/25/19 12/24/19 12/24/19 00:01 21:20 18:04 POC Glucose 300 H 354 H 309 H Radiology Reviewed by me: Yes (CXR - reviewed) EKG Reviewed by me: Yes (Tele SR) Hospitalist ROS - Review of Systems ROS unobtainable: due to mental status - Medication Medications: Active Medications Generic Name Dose Route Start Last Admin Trade Name Freq PRN Reason Stop Dose Admin Albuterol/Ipratropium 3 ml 12/24/19 10:30 12/25/19 14:46 Duoneb NEB 3 ml [id number] NADINE Administration Amlodipine Besylate 10 mg 12/25/19 09:00 12/25/19 09:29 Norvasc PO 10 mg DAILY NADINE Administration Clonidine 0.2 mg 12/25/19 09:00 12/25/19 15:03 Catapres PO 0.2 mg TID NADINE Administration Docusate Sodium 100 mg 12/25/19 09:00 12/25/19 09:29 Colace PO 100 mg DAILY NADINE Administration Enoxaparin Sodium 40 mg 12/24/19 09:00 12/24/19 08:26 Lovenox SC 40 mg 0900 NADINE Administration Enoxaparin Sodium 30 mg 12/25/19 09:00 12/25/19 09:28 Lovenox SC 30 mg 0900,2100 NADINE Administration Famotidine 20 mg 12/24/19 09:00 12/25/19 09:29 Pepcid SLOW IVP 20 mg BID NADINE Administration Cefepime HCl 2 gm/ Sodium 100 mls @ 200 mls/hr 12/23/19 17:00 12/25/19 16:18 Chloride IVPB 100 mls 0500,1700 NADINE Administration Fentanyl Citrate 2,000 mcg/ 100 mls @ 0 mls/hr 12/23/19 16:59 12/25/19 13:35 Sodium Chloride IV 01/22/20 16:59 100 mls INF NADINE Administration Protocol Per Protocol Potassium Chloride 40 meq/ 100 mls @ 50 mls/hr 12/23/19 17:05 12/24/19 07:38 Device IVPB 100 mls ASDIR PRN Administration FOR SERUM K+ 2.5 - 3.5 Sodium Chloride 1,000 mls @ 100 mls/hr 12/24/19 09:15 12/25/19 16:18 1/2 Normal Saline IV 1,000 mls .Q10H NADINE Administration Dexmedetomidine HCl 400 mcg/ 100 mls @ 0 mls/hr 12/25/19 09:00 12/25/19 15:25 Sodium Chloride IVPB 100 mls INF NADINE Administration Protocol Per Protocol Insulin Human Lispro 0 units 12/25/19 01:04 12/25/19 16:16 Humalog SC 13 unit .AGGRESSIVE SLIDING PRN Administration AGGRESSIVE SLIDING SCALE Protocol Lisinopril 40 mg 12/25/19 09:00 12/25/19 09:29 Zestril PO 40 mg DAILY NADINE Administration Lorazepam 2 mg 12/23/19 16:59 12/23/19 22:47 Ativan SLOW IVP 01/22/20 16:59 2 mg Q1H PRN Administration Breakthrough agitation Methylprednisolone Sodium Succinate 40 mg 12/25/19 09:00 12/25/19 09:30 Solu-Medrol IVP 40 mg BID NADINE Administration Propofol 1,000 mg 12/23/19 16:59 12/25/19 04:15 Diprivan IV 01/22/20 16:59 1,000 mg INF PRN Administration TO ACHIEVE GOAL RASS Protocol Sodium Chloride 10 ml 12/24/19 21:00 12/25/19 09:30 Flush - Normal Saline IVF 10 ml Q12HR NADINE Administration - Exam General Appearance: NAD General - other findings: on Vent Heart: RRR, no gallops, no rubs, normal peripheral pulses Respiratory: no wheezes, no rales, normal chest expansion, rhonchi Gastrointestinal: soft, non-tender, non-distended, normal bowel sounds Extremities: no cyanosis, no clubbing Extremities - other findings: RLE edema. Erythema improving Neurological - other findings: Neuro/Psych - cannot assess due to sedation Hosp A/P - Plan DVT proph w/lovenox Severe Sepsis 2/2 to RLE Cellulitis Acute respiratory failure with hypoxia/hypercapnia Hypertension DM2 Hypernatremia Dementia h/o CVA Mild persistent Asthma Depression Chronic Anticoagulation Morbid Obesity BMI 40.9 CKD 3 PLAN: Cont Vancomycin/Cefepime Monitor Vancomycin level On 08/09 NS - reduce rate to 75 due to uncontrolled HTN Increase NPH to 25 units BID On IV Solumedrol 40 BID Increase Clonidine Add Hydralazine Cont Aggressive sliding scale Cont supportive care Cont other meds as above Daily CXR/ABG/labs
[2019-12-25] MEDS ORDERED: Nitroglycerin 2% Ointment 1 INCH/1 GM Packet TOP PRN (16:52)
[2019-12-25] MEDS: hydrALAZINE 25 MG TAB PO SCH ×2 (18:06→23:37)
[2019-12-25] MEDS: cloNIDine 0.2 MG TAB PO SCH ×2 (18:06→23:37)
[2019-12-26] MEDS: Lorazepam 2 MG/ML VIAL SLOW IVP PRN (00:40)
[2019-12-26] MEDS: Cefepime 2 GM in Sodium Chloride 0.9% 100 ML IVPB SCH ×2 (05:02→17:32)
[2019-12-26] MEDS: HumaLOG 300 UNITS/3 ML VIAL SC PRN ×4 (05:03→18:19)
[2019-12-26 05:18] LABS: INR-International Normal Ratio 1.2
[2019-12-26] MEDS: cloNIDine 0.2 MG TAB PO SCH ×3 (05:20→17:32)
[2019-12-26] MEDS: hydrALAZINE 25 MG TAB PO SCH ×3 (05:20→17:32)
[2019-12-26] MEDS: Sodium Chloride 0.45% 1,000 ML IV SCH (05:21)
[2019-12-26 05:31] LABS: Band 14 % (5-11); Hemoglobin 9.5 g/dL (12.0-16.0); Lymphocytes 17 % (21-51); MDiff Complete? YES; Mean Corpuscular HGB CONC 31.1 g/dL (32.0-36.0); Mean Corpuscular Hemoglobin 31.5 pg (27.0-31.0); Mean Platelet Volume 8.8 fL (7.4-10.4); Metamyelocyte 1 % (0-0); Monocytes 6 % (0-10); Neutrophil 62 % (42-75); Nucleated RBC 1 % (0); Platelet Count 347 thou/uL (130-400); Platelet Morphology Comment Appears Adequate; RBC Distribution Width 13.2 % (11.5-14.5); White Blood Cell (WBC) Count 18.7 thou/uL (4.8-10.8)
[2019-12-26 05:33] LABS: Anion Gap 13 mmol/L (10-20); BUN (Urea Nitrogen) 43 mg/dL (9.8-20.1); Calc. Creatinine Clearance 84 mL/min (70-130); Calcium 7.9 mg/dL (7.8-10.44); Carbon Dioxide 30 mmol/L (23-31); Chloride 109 mmol/L (98-107); Estimated GFR-MDRD 45; Glucose 353 mg/dL (80-115); Magnesium 2.1 mg/dL (1.6-2.6); Potassium 4.4 mmol/L (3.5-5.1); Sodium 148 mmol/L (136-145)
[2019-12-26 07:37] LABS: Actual Bicarbonate (HCO3a) 30.7 mEq/L (22-28); Base Excess (BEa) 5.7 mEq/L (-2.0 to +3.0); Calcium, Ionized 1.14 mmol/L (1.12-1.30); Carboxyhemoglobin (COHb) 0.1 gm% (0.0-3.0); Hemoglobin (Hb) 9.9 g/dL (12.0-16.0); O2 Tension (PaO2), arterial 85.1 mmHg (> 80.0); Potassium - ABG Lab 4.17 mmol/L (3.70-5.30); pH, Arterial 7.43 (7.35-7.45)
[2019-12-26 07:38] LABS: Puncture Site RR
[2019-12-26] MEDS ORDERED: NPH, Human Insulin Isophane 300 UNIT/3 ML VIAL SC SCH (07:40)
--- NOTE | 2019-12-26 08:03 | RAD ---
PORTABLE CHEST 1 VIEW: DATE: 12/26/2019. TIME: 4:12 a.m. HISTORY: Respiratory failure. FINDINGS/IMPRESSION: No significant interval change is seen since the previous day's exam. POS: TOM
[2019-12-26] MEDS: Lisinopril 20 MG TAB PO SCH (08:48)
[2019-12-26] MEDS: Famotidine/PF 20 mg/2ml Vial SLOW IVP SCH ×2 (08:48→20:29)
[2019-12-26] MEDS: Enoxaparin Sodium 30 MG/0.3 ML SYRINGE SC SCH ×2 (08:48→20:28)
[2019-12-26] MEDS: Amlodipine 10 MG TAB PO SCH (08:49)
[2019-12-26] MEDS: methylPREDNISolone Sod Succ 40 MG VIAL IVP SCH (08:49)
[2019-12-26] MEDS: Saccharomyces boulardii 250 MG CAP PO SCH (08:49)
[2019-12-26] MEDS: Docusate 100 MG CAP PO SCH (08:49)
[2019-12-26 08:50] LABS: Vancomycin, Random 18.7 ug/mL (See Comment)
[2019-12-26] MEDS: NPH, Human Insulin Isophane 300 UNIT/3 ML VIAL SC SCH ×2 (08:50→20:29)
--- NOTE | 2019-12-26 09:21 | PRG ---
DATE OF SERVICE: 12/26/2019 SUBJECTIVE: This morning, a 64-year-old morbidly obese female. She is a little bit more responsive. BMI is 40, she is 245 pounds. OBJECTIVE: VITAL SIGNS: Pulse 115, blood pressure 170/80, saturations 90%, and respirations 17. She is still on Precedex and low-dose fentanyl. Her I's and O's have been consistently positive. CHEST: Decreased breath sounds. No wheezing. CARDIAC: Normal S1 and S2. No gallops. ABDOMEN: No masses. LABORATORY DATA: White count 18,000, H and H 9 and 30, and platelet count 347. A pO2 is 85, pCO2 is . BUN and creatinine are much improved. ASSESSMENT AND PLAN: Azotemia, morbid obesity, respiratory failure, diabetes, previous cerebrovascular accident, and pneumonia. She is still not weanable though we are going to adjust vent today. Continue nutrition and PT. BNP is only 68 suggesting more than likely her pleural effusion, could be from low albumin, which is 2.4 on admission. Overall prognosis is grave. We will follow. One-half hour of critical care time. Job ID: [id number]
[2019-12-26] MEDS ORDERED: Vancomycin 1 GM in Premix Bag 1 BAG IVPB SCH (10:00)
[2019-12-26] MEDS ORDERED: DC Sedation Protocol FS ONE (10:37)
[2019-12-26] MEDS: Nitroglycerin 2% Ointment 1 INCH/1 GM Packet TOP SCH ×2 (14:10→20:25)
[2019-12-26] MEDS ORDERED: Enalaprilat Dihydrate 1.25 MG/ML VIAL SLOW IVP SCH ×2 (14:45→15:45)
[2019-12-26] MEDS ORDERED: cloNIDine 0.1mg/24 Hour PATCH TD SCH (20:00)
[2019-12-26] MEDS: Enalaprilat Dihydrate 1.25 MG/ML VIAL SLOW IVP SCH (20:25)
[2019-12-26] MEDS ORDERED: traZODone HCl 50 MG TAB PO SCH (21:00)
[2019-12-27] MEDS: Metoprolol Tartrate 5 MG/5 ML VIAL IVP PRN ×2 (00:25→21:49)
[2019-12-27] MEDS: HumaLOG 300 UNITS/3 ML VIAL SC PRN ×5 (00:25→23:53)
[2019-12-27] MEDS: Sodium Chloride 0.45% 1,000 ML IV SCH (00:26)
[2019-12-27] MEDS: hydrALAZINE 25 MG TAB PO SCH ×5 (00:37→23:49)
[2019-12-27] MEDS: cloNIDine 0.2 MG TAB PO SCH ×4 (00:37→17:26)
[2019-12-27] MEDS: Nitroglycerin 2% Ointment 1 INCH/1 GM Packet TOP SCH ×4 (02:07→19:27)
[2019-12-27] MEDS: Enalaprilat Dihydrate 1.25 MG/ML VIAL SLOW IVP SCH ×3 (02:08→14:48)
[2019-12-27 04:35] LABS: Anion Gap 12 mmol/L (10-20); BUN (Urea Nitrogen) 33 mg/dL (9.8-20.1); Calc. Creatinine Clearance 106 mL/min (70-130); Calcium 8.3 mg/dL (7.8-10.44); Carbon Dioxide 35 mmol/L (23-31); Chloride 107 mmol/L (98-107); Estimated GFR-MDRD 58; Glucose 116 mg/dL (80-115); Potassium 3.2 mmol/L (3.5-5.1); Sodium 151 mmol/L (136-145)
[2019-12-27 04:39] LABS: Band 3 % (5-11); Hemoglobin 10.1 g/dL (12.0-16.0); Hypochromia SLIGHT = 6-15 cells (100X) (0-5/hpf); Lymphocytes 19 % (21-51); MDiff Complete? YES; Mean Corpuscular HGB CONC 32.4 g/dL (32.0-36.0); Mean Corpuscular Hemoglobin 32.3 pg (27.0-31.0); Mean Corpuscular Volume 99.5 fL (78.0-98.0); Mean Platelet Volume 8.3 fL (7.4-10.4); Monocytes 5 % (0-10); Neutrophil 73 % (42-75); Platelet Count 406 thou/uL (130-400); Platelet Morphology Comment Appears Adequate; RBC Distribution Width 13.2 % (11.5-14.5); Red Blood Cell (RBC) Count 3.13 mill/uL (4.20-5.40); White Blood Cell (WBC) Count 22.7 thou/uL (4.8-10.8)
[2019-12-27] MEDS: niCARdipine 25 MG in Sodium Chloride 0.9% 250 ML 240 ML IVPB SCH ×2 (05:13→07:34)
[2019-12-27] MEDS: Potassium Chloride 40 MEQ in Premix Bag 1 BAG IVPB PRN (05:13)
[2019-12-27] MEDS: Cefepime 2 GM in Sodium Chloride 0.9% 100 ML IVPB SCH ×2 (05:14→17:25)
--- NOTE | 2019-12-27 07:51 | RAD ---
EXAM: CHEST ONE VIEW HISTORY: On ventilator. Follow-up evaluation. COMPARISON: 12/26/2019 FINDINGS: Nasogastric tube and endotracheal tube have been removed. Left subclavian central venous catheter rem ains in place. Bilateral pleural effusions are again seen greater on the right with associated parenchymal opacity probably attributable to passive atelectasis; although, pneumonia at either lung base could not be entirely excluded. Calcified granuloma right midlung zone is again seen. No other interval change IMPRESSION: Overall stable chest with bilateral pleural effusions greater on the right with associated parenchyma l opacities probably attributable to associated passive atelectasis. Infiltrate/pneumonia at either lung base cannot be entirely excluded.
--- NOTE | 2019-12-27 08:52 | PDOC.HOSPP ---
- Subjective Encounter Date: 12/26/19 Encounter Time: 16:30 Subjective: Patient seen and examined for Resp failure. Extubated. No new complaints. No overnight events - Objective Vital Signs & Weight: Vital Signs (12 hours) Temp Pulse Resp BP Pulse Ox 12/27/19 07:13 98 12/27/19 07:09 100 28 H 96 12/27/19 05:24 197/113 H 12/27/19 05:23 197/113 H 12/27/19 04:00 99.4 F 12/27/19 02:08 197/113 H 12/27/19 01:51 103 H 20 96 12/27/19 01:49 96 12/27/19 00:37 123 H 167/111 H 12/27/19 00:00 99.8 F H 12/26/19 22:05 123 H 22 H 97 Weight Admit Weight 243 lb Weight 233 lb 14.567 oz Most Recent Monitor Data Heart Rate from ECG 107 NIBP 190/79 NIBP BP-Mean 116 Respiration from ECG 25 SpO2 96 I&O: 12/26/19 12/27/19 12/28/19 06:59 06:59 06:59 Intake Total 2960.8 1896 Output Total 2750 5905 Balance 210.8 -4009 Result Diagrams: 12/27/19 03:50 12/27/19 03:50 Additional Labs: Accuchecks 12/27/19 12/27/19 12/26/19 08:32 00:27 20:28 POC Glucose 230 H 180 H 178 H 12/26/19 12/26/19 17:12 11:56 POC Glucose 187 H 226 H Radiology Reviewed by me: Yes (CXR - reviewed) EKG Reviewed by me: Yes (Tele ST) Hospitalist ROS - Review of Systems Cardiovascular: reports: edema. denies: chest pain, palpitations, orthopnea, paroxysmal noc. dyspnea, light headedness, other Gastrointestinal: denies: nausea, vomiting, abdominal pain, diarrhea, constipation, melena, hematochezia, other - Medication Medications: Active Medications Generic Name Dose Route Start Last Admin Trade Name Freq PRN Reason Stop Dose Admin Albuterol/Ipratropium 3 ml 12/24/19 10:30 12/27/19 07:09 Duoneb NEB 3 ml [id number] NADINE Administration Amlodipine Besylate 10 mg 12/25/19 09:00 12/26/19 08:49 Norvasc PO 10 mg DAILY NADINE Administration Clonidine 0.2 mg 12/25/19 18:00 12/27/19 05:23 Catapres PO Not Given Q6HR NADINE Clonidine 0.1 mg 12/26/19 20:00 12/26/19 20:25 [id number] Patch TD 0.1 mg Q7D@2000 NADINE Administration Docusate Sodium 100 mg 12/25/19 09:00 12/26/19 08:49 Colace PO 100 mg DAILY NADINE Administration Enalaprilat 2.5 mg 12/26/19 21:00 12/27/19 02:08 Vasotec SLOW IVP 2.5 mg 0300,0900,1500,2100 NADINE Administration Enoxaparin Sodium 30 mg 12/25/19 09:00 12/26/19 20:28 Lovenox SC 30 mg 0900,2100 NADINE Administration Famotidine 20 mg 12/24/19 09:00 12/26/19 20:29 Pepcid SLOW IVP 20 mg BID NADINE Administration Hydralazine HCl 25 mg 12/25/19 18:00 12/27/19 05:24 Apresoline PO Not Given Q6HR [facility] Cefepime HCl 2 gm/ Sodium 100 mls @ 200 mls/hr 12/23/19 17:00 12/27/19 05:14 Chloride IVPB 100 mls 0500,1700 NADINE Administration Potassium Chloride 40 meq/ 100 mls @ 50 mls/hr 12/23/19 17:05 12/27/19 05:13 Device IVPB 100 mls ASDIR PRN Administration FOR SERUM K+ 2.5 - 3.5 Nicardipine HCl 25 mg/ Sodium 250 mls @ 0 mls/hr 12/27/19 05:00 12/27/19 07: 34 Chloride IVPB 250 mls INF NADINE Administration Protocol Titrate Insulin Human Lispro 0 units 12/25/19 01:04 12/27/19 00:25 Humalog SC 3 unit .AGGRESSIVE SLIDING PRN Administration AGGRESSIVE SLIDING SCALE Protocol Insulin Human NPH 35 unit 12/26/19 09:00 12/26/19 20:29 Humulin N SC 35 unit BID NADINE Administration Lisinopril 40 mg 12/25/19 09:00 12/26/19 08:48 Zestril PO 40 mg DAILY NADINE Administration Methylprednisolone Sodium Succinate 40 mg 12/26/19 09:00 12/26/19 08:49 Solu-Medrol IVP 40 mg DAILY NADINE Administration Metoprolol Tartrate 5 mg 12/27/19 00:03 12/27/19 00:25 Lopressor IVP 5 mg Q6H PRN Administration SBP GREATER THAN 160 Nitroglycerin 0.5 inch 12/26/19 13:30 12/27/19 08:22 Nitro-Bid 2% Ointment TOP 0.5 inch Q6H NADINE Administration Saccharomyces Boulardii 250 mg 12/26/19 09:00 12/26/19 08:49 Florastor PO 250 mg DAILY NADINE Administration Sodium Chloride 10 ml 12/24/19 21:00 12/26/19 20:29 Flush - Normal Saline IVF 10 ml Q12HR NADINE Administration - Exam General Appearance: ill appearing Heart: no gallops, no rubs Respiratory: rales, rhonchi Gastrointestinal: soft, non-tender, no guarding, no rigidity Extremities: no cyanosis Extremities - other findings: Improving RLE edema/tenderness Hosp A/P - Plan DVT proph w/lovenox Severe Sepsis 09/09 to RLE Cellulitis Acute respiratory failure with hypoxia/hypercapnia - extubated 12/25 Hypertension DM2 Hypernatremia - improving Dementia h/o CVA Mild persistent Asthma Depression Chronic Anticoagulation Morbid Obesity BMI 40.9 CKD 3 PLAN: Cont IV Atbx - Vancomycin/Cefepime Monitor Vancomycin level Reduce IVF Increase NPH Cont Aggressive sliding scale On IV Steroids Cont Clonidine Cont Hydralazine Cont supportive care Cont other meds as above AM labs
--- NOTE | 2019-12-27 09:19 | PRG ---
DATE OF SERVICE: 12/27/2019 SUBJECTIVE: This morning, the patient is awake, responsive, is still remains very weak. OBJECTIVE: VITAL SIGNS: Pulse 100, respirations 28, saturations 98 on 3 L, and blood pressure 190/79. Her I's and O's have been consistently ahead. LUNGS: She has had extensive rhonchi bilaterally. CARDIAC: Normal S1 and S2. No gallops. ABDOMEN: No masses. LABORATORY DATA: Creatinine is normal. BUN is 33, sodium is 151, bicarb is 35, and glucose 180. White count 20,000. IMPRESSION: Respiratory failure, retained secretions, morbid obesity, cerebrovascular accident, small pleural effusion with normal ejection fraction. PLAN: Concerned about pulmonary status since she is not coughing effectively. Continue IV fluids. Continue neb treatments and supportive care. She may require therapeutic bronchoscopy later on, if she still has significant secretions and a trial of noninvasive ventilation. This is one-half hour of critical care time. Job ID: [id number]
[2019-12-27] MEDS: methylPREDNISolone Sod Succ 40 MG VIAL IVP SCH (09:20)
[2019-12-27] MEDS: Famotidine/PF 20 mg/2ml Vial SLOW IVP SCH ×2 (09:23→20:36)
[2019-12-27] MEDS: Enoxaparin Sodium 30 MG/0.3 ML SYRINGE SC SCH ×2 (09:25→20:36)
[2019-12-27] MEDS: Saccharomyces boulardii 250 MG CAP PO SCH (09:26)
[2019-12-27] MEDS: Lisinopril 20 MG TAB PO SCH (09:26)
[2019-12-27] MEDS: Amlodipine 10 MG TAB PO SCH (09:26)
[2019-12-27] MEDS: Docusate 100 MG CAP PO SCH (09:31)
[2019-12-27] MEDS: NPH, Human Insulin Isophane 300 UNIT/3 ML VIAL SC SCH ×2 (09:33→20:36)
[2019-12-27] MEDS: 1/2 NS w/KCL 20 mEq 1,000 ML IV SCH ×2 (09:38→21:52)
[2019-12-27] MEDS: hydrALAZINE 20 MG/ML VIAL SLOW IVP PRN ×2 (10:52→22:40)
[2019-12-27] MEDS ORDERED: Clopidogrel Bisulfate 75 MG TAB ONE (14:23)
--- NOTE | 2019-12-27 15:34 | PDOC.HOSPP ---
- Subjective Encounter Date: 12/27/19 Encounter Time: 14:30 Subjective: Patient seen and examined for Resp failure. Overnight events noted. SOB improving. NG placed for meds. SOB improving. - Objective Vital Signs & Weight: Vital Signs (12 hours) Temp Pulse Resp BP Pulse Ox 12/27/19 14:10 110 H 23 H 99 12/27/19 12:00 98.4 F 94 L 12/27/19 11:46 106 H 12/27/19 11:44 178/84 H 12/27/19 10:52 106 H 12/27/19 10:50 106 H 27 H 99 12/27/19 09:31 197/113 H 12/27/19 09:26 100 197/113 H 12/27/19 09:20 97 12/27/19 08:00 97.5 F L 12/27/19 07:13 98 12/27/19 07:09 100 28 H 96 12/27/19 05:24 197/113 H 12/27/19 05:23 197/113 H 12/27/19 04:00 99.4 F Weight Admit Weight 243 lb Weight 233 lb 14.567 oz Most Recent Monitor Data Heart Rate from ECG 110 NIBP 174/97 NIBP BP-Mean 122 Respiration from ECG 25 SpO2 95 I&O: 12/26/19 12/27/19 12/28/19 06:59 06:59 06:59 Intake Total 2960.8 1896 865 Output Total 2750 5905 1945 Balance 210.8 -4009 -1080 Result Diagrams: 12/27/19 03:50 12/27/19 03:50 Additional Labs: Accuchecks 12/27/19 12/27/19 12/27/19 12:28 08:32 00:27 POC Glucose 263 H 230 H 180 H 12/26/19 12/26/19 20:28 17:12 POC Glucose 178 H 187 H Laboratory Tests 12/23/19 12/26/19 17:10 07:32 ABG pH 7.43 ABG pCO2 63.4 H* 47.0 H ABG pO2 46.0 L* 85.1 H Radiology Reviewed by me: Yes (CXR - reviewed) EKG Reviewed by me: Yes (Tele ST) Hospitalist ROS - Review of Systems Gastrointestinal: denies: nausea, vomiting, abdominal pain, diarrhea, constipation, melena, hematochezia, other Genitourinary: denies: dysuria, frequency, incontinence, hematuria, retention, other - Medication Medications: Active Medications Generic Name Dose Route Start Last Admin Trade Name Freq PRN Reason Stop Dose Admin Albuterol/Ipratropium 3 ml 12/27/19 10:30 12/27/19 14:10 Duoneb EZPAP 3 ml [id number] NADINE Administration Amlodipine Besylate 10 mg 12/25/19 09:00 12/27/19 09:26 Norvasc PO 10 mg DAILY NADINE Administration Clonidine 0.2 mg 12/25/19 18:00 12/27/19 11:44 Catapres PO 0.2 mg Q6HR NADINE Administration Clonidine 0.1 mg 12/26/19 20:00 12/26/19 20:25 [id number] Patch TD 0.1 mg Q7D@2000 NADINE Administration Docusate Sodium 100 mg 12/25/19 09:00 12/27/19 09:31 Colace PO 100 mg DAILY NADINE Administration Enalaprilat 2.5 mg 12/26/19 21:00 12/27/19 14:48 Vasotec SLOW IVP 2.5 mg 0300,0900,1500,2100 NADINE Administration Enoxaparin Sodium 30 mg 12/25/19 09:00 12/27/19 09:25 Lovenox SC 30 mg 0900,2100 NADINE Administration Famotidine 20 mg 12/24/19 09:00 12/27/19 09:23 Pepcid SLOW IVP 20 mg BID NADINE Administration Hydralazine HCl 10 mg 12/25/19 09:12 12/27/19 10:52 Apresoline SLOW IVP 10 mg Q4H PRN Administration SBP Greater Than 180 Hydralazine HCl 25 mg 12/25/19 18:00 12/27/19 11:46 Apresoline PO 25 mg Q6HR NADINE Administration Cefepime HCl 2 gm/ Sodium 100 mls @ 200 mls/hr 12/23/19 17:00 12/27/19 05:14 Chloride IVPB 100 mls 0500,1700 NADINE Administration Potassium Chloride 40 meq/ 100 mls @ 50 mls/hr 12/23/19 17:05 12/27/19 05:13 Device IVPB 100 mls ASDIR PRN Administration FOR SERUM K+ 2.5 - 3.5 Potassium Chloride/Sodium Chloride 1,000 mls @ 75 mls/hr 12/27/19 08:45 12/26 09:38 1/2 Ns W/Kcl 20 Meq IV 1,000 mls .[id number] NADINE Administration Insulin Human Lispro 0 units 12/25/19 01:04 12/27/19 12:28 Humalog SC 9 unit .AGGRESSIVE SLIDING PRN Administration AGGRESSIVE SLIDING SCALE Protocol Insulin Human NPH 35 unit 12/26/19 09:00 12/27/19 09:33 Humulin N SC 35 unit BID NADINE Administration Lisinopril 40 mg 12/25/19 09:00 12/27/19 09:26 Zestril PO 40 mg DAILY NADINE Administration Methylprednisolone Sodium Succinate 40 mg 12/26/19 09:00 12/27/19 09:20 Solu-Medrol IVP 40 mg DAILY NADINE Administration Metoprolol Tartrate 5 mg 12/27/19 00:03 12/27/19 00:25 Lopressor IVP 5 mg Q6H PRN Administration SBP GREATER THAN 160 Nitroglycerin 0.5 inch 12/26/19 13:30 12/27/19 13:19 Nitro-Bid 2% Ointment TOP 0.5 inch Q6H NADINE Administration Saccharomyces Boulardii 250 mg 12/26/19 09:00 12/27/19 09:26 Florastor PO 250 mg DAILY NADINE Administration Sodium Chloride 10 ml 12/24/19 21:00 12/27/19 09:33 Flush - Normal Saline IVF 10 ml Q12HR NADINE Administration - Exam General Appearance: ill appearing General - other findings: Mild resp distress Respiratory: rales, rhonchi, wheezes Gastrointestinal: soft, non-tender, non-distended, normal bowel sounds Extremities: no cyanosis, no clubbing Extremities - other findings: RLE edema with some erythema Neurological: no new deficit Psychiatric: normal affect, A&O x 3 Hosp A/P - Plan DVT proph w/lovenox, DVT proph w/SCDs Severe Sepsis 2/2 to RLE Cellulitis Acute respiratory failure with hypoxia/hypercapnia due to retained secretions ? Aspiration Pneumonia - extubated 12/25 Hypertension DM2 Hypernatremia - improving Dementia h/o CVA Mild persistent Asthma Depression Chronic Anticoagulation Morbid Obesity BMI 40.9 CKD 3 PLAN: Cont IV Cefepime Reduce NPH to 25 BID Cont Aggressive sliding scale On IV Steroids daily Cont Clonidine Cont Hydralazine Amlodipine/Lisinopril added today DC IV Vasotec Cont other meds as above AM labs Cont supportive care
[2019-12-28] MEDS: cloNIDine 0.2 MG TAB PO SCH ×4 (00:11→17:00)
[2019-12-28] MEDS: Nitroglycerin 2% Ointment 1 INCH/1 GM Packet TOP SCH ×4 (00:50→19:44)
[2019-12-28 04:34] LABS: Hemoglobin 9.3 g/dL (12.0-16.0); Mean Corpuscular HGB CONC 31.3 g/dL (32.0-36.0); Mean Corpuscular Hemoglobin 31.6 pg (27.0-31.0); Mean Platelet Volume 8.8 fL (7.4-10.4); Platelet Count 354 thou/uL (130-400); RBC Distribution Width 13.6 % (11.5-14.5); Red Blood Cell (RBC) Count 2.94 mill/uL (4.20-5.40); White Blood Cell (WBC) Count 18.6 thou/uL (4.8-10.8)
[2019-12-28 04:43] LABS: Anion Gap 11 mmol/L (10-20); BUN (Urea Nitrogen) 38 mg/dL (9.8-20.1); Calc. Creatinine Clearance 86 mL/min (70-130); Calcium 8.3 mg/dL (7.8-10.44); Carbon Dioxide 33 mmol/L (23-31); Chloride 109 mmol/L (98-107); Estimated GFR-MDRD 49; Glucose 215 mg/dL (80-115); Potassium 4.1 mmol/L (3.5-5.1); Sodium 149 mmol/L (136-145)
[2019-12-28] MEDS: Cefepime 2 GM in Sodium Chloride 0.9% 100 ML IVPB SCH ×2 (05:14→17:01)
[2019-12-28] MEDS: hydrALAZINE 25 MG TAB PO SCH ×3 (05:15→17:01)
[2019-12-28 05:16] LABS: Band 6 % (5-11); Eosinophils 1 % (0-10); Lymphocytes 17 % (21-51); MDiff Complete? YES; Monocytes 5 % (0-10); Myelocyte 2 % (0-0); Neutrophil 69 % (42-75)
[2019-12-28] MEDS: HumaLOG 300 UNITS/3 ML VIAL SC PRN ×5 (05:16→20:23)
--- NOTE | 2019-12-28 07:56 | RAD ---
PORTABLE CHEST: Date: 12/28/2019 INDICATION: On ventilation. CCU follow-up. COMPARISON: 12/27/2019. FINDINGS: The bilateral effusions and hazy bibasilar infiltrates are less pronounced today. Upper lung zones ar e clear. Central line and NG tube unchanged. IMPRESSION: Improvement in the chest since yesterday. POS: [facility]
[2019-12-28] MEDS: methylPREDNISolone Sod Succ 40 MG VIAL IVP SCH (09:41)
[2019-12-28] MEDS: Amlodipine 10 MG TAB PO SCH (09:43)
[2019-12-28] MEDS: Famotidine/PF 20 mg/2ml Vial SLOW IVP SCH (09:44)
[2019-12-28] MEDS: Lisinopril 20 MG TAB PO SCH (09:44)
[2019-12-28] MEDS: Docusate 100 MG CAP PO SCH (09:44)
[2019-12-28] MEDS: Enoxaparin Sodium 30 MG/0.3 ML SYRINGE SC SCH ×2 (09:45→20:22)
[2019-12-28] MEDS: Saccharomyces boulardii 250 MG CAP PO SCH (09:46)
[2019-12-28] MEDS: NPH, Human Insulin Isophane 300 UNIT/3 ML VIAL SC SCH ×2 (09:47→20:22)
--- NOTE | 2019-12-28 09:48 | PRG ---
DATE OF SERVICE: 12/28/2019 SUBJECTIVE: Sussy Bird this morning to my surprise, she is awake, alert, responsive, much improved. OBJECTIVE: VITAL SIGNS: Temperature is 99, blood pressure 156/81, respiratory rate 18, pulse 80. I's and O's have been excellent positive. CHEST: No wheezing. No crackles. CARDIAC: Normal S1 and S2. No gallops. ABDOMEN: No masses. LABORATORY DATA: White count 18,000. Creatinine is down to 1.3. X-ray shows much improvement in the bilateral infiltrates. ASSESSMENT: Respiratory failure, probably aspiration pneumonia, still dysphagia, severe deconditioning. PLAN: As soon as she is able to swallow, we will switch over to oral medication including antibiotics and steroids. Continue neb treatment. Transfer to MICU later today. Pulmonary/Critical Care is following. One-half hour of critical care time. Job ID: [id number]
[2019-12-28] MEDS: 1/2 NS w/KCL 20 mEq 1,000 ML IV SCH (12:25)
[2019-12-28] MEDS: Famotidine 20 MG TAB PO SCH (20:22)
[2019-12-29] MEDS: hydrALAZINE 25 MG TAB PO SCH ×5 (01:28→20:12)
[2019-12-29] MEDS: HumaLOG 300 UNITS/3 ML VIAL SC PRN ×4 (01:29→17:26)
[2019-12-29] MEDS: cloNIDine 0.2 MG TAB PO SCH ×5 (01:29→20:10)
[2019-12-29] MEDS: Nitroglycerin 2% Ointment 1 INCH/1 GM Packet TOP SCH ×4 (01:53→19:23)
[2019-12-29] MEDS: 1/2 NS w/KCL 20 mEq 1,000 ML IV SCH ×3 (01:58→18:50)
[2019-12-29 04:30] LABS: Anion Gap 11 mmol/L (10-20); BUN (Urea Nitrogen) 37 mg/dL (9.8-20.1); Calc. Creatinine Clearance 87 mL/min (70-130); Calcium 8.4 mg/dL (7.8-10.44); Carbon Dioxide 30 mmol/L (23-31); Chloride 108 mmol/L (98-107); Estimated GFR-MDRD 49; Glucose 177 mg/dL (80-115); Potassium 4.2 mmol/L (3.5-5.1); Sodium 145 mmol/L (136-145)
[2019-12-29] MEDS: Cefepime 2 GM in Sodium Chloride 0.9% 100 ML IVPB SCH ×2 (05:10→17:23)
[2019-12-29 05:56] LABS: Band 10 % (5-11); Hemoglobin 8.8 g/dL (12.0-16.0); Lymphocytes 19 % (21-51); MDiff Complete? YES; Mean Corpuscular HGB CONC 31.1 g/dL (32.0-36.0); Mean Corpuscular Hemoglobin 31.4 pg (27.0-31.0); Mean Platelet Volume 8.9 fL (7.4-10.4); Monocytes 6 % (0-10); Neutrophil 65 % (42-75); Platelet Count 289 thou/uL (130-400); RBC Distribution Width 13.6 % (11.5-14.5); White Blood Cell (WBC) Count 18.7 thou/uL (4.8-10.8)
--- NOTE | 2019-12-29 08:16 | PDOC.HOSPP ---
- Subjective Encounter Date: 12/28/19 Encounter Time: 14:00 Subjective: Patient seen and examined for resp failure. No new complaints. No overnight events - Objective Vital Signs & Weight: Vital Signs (12 hours) Temp Pulse Resp BP Pulse Ox 12/29/19 08:01 98 F 12/29/19 07:00 95 16 100 12/29/19 05:11 104 H 138/78 12/29/19 03:50 97.1 F L 12/29/19 03:27 101 H 20 99 12/29/19 01:29 158/109 H 12/29/19 01:28 111 H 158/109 H 12/28/19 23:37 96.2 F L 12/28/19 21:50 106 H 17 100 Weight Admit Weight 243 lb Weight 243 lb 2 oz Most Recent Monitor Data Heart Rate from ECG 94 NIBP 158/78 NIBP BP-Mean 104 Respiration from ECG 25 SpO2 100 I&O: 12/28/19 12/29/19 12/30/19 06:59 06:59 06:59 Intake Total 3109 4048 Output Total 3320 2400 Balance -211 1648 Result Diagrams: 12/29/19 03:27 12/29/19 03:27 Additional Labs: Accuchecks 12/29/19 12/29/19 12/29/19 05:38 04:44 00:00 POC Glucose 200 H 201 H 174 H 12/28/19 12/28/19 12/28/19 19:50 16:27 11:35 POC Glucose 251 H 208 H 235 H 12/28/19 08:27 POC Glucose 270 H EKG Reviewed by me: Yes (Tele SR) Hospitalist ROS - Review of Systems Cardiovascular: denies: chest pain, palpitations, orthopnea, paroxysmal noc. dyspnea, edema, light headedness, other Gastrointestinal: denies: nausea, vomiting, abdominal pain, diarrhea, constipation, melena, hematochezia, other - Medication Medications: Active Medications Generic Name Dose Route Start Last Admin Trade Name Freq PRN Reason Stop Dose Admin Albuterol/Ipratropium 3 ml 12/27/19 10:30 12/29/19 07:00 Duoneb EZPAP 3 ml [id number] NADINE Administration Amlodipine Besylate 10 mg 12/25/19 09:00 12/28/19 09:43 Norvasc PO 10 mg DAILY NADINE Administration Clonidine 0.2 mg 12/25/19 18:00 12/29/19 05:11 Catapres PO 0.2 mg Q6HR NADINE Administration Clonidine 0.1 mg 12/26/19 20:00 12/26/19 20:25 Laomchyo-Nwo-8 Patch TD 0.1 mg Q7D@2000 NADINE Administration Docusate Sodium 100 mg 12/25/19 09:00 12/28/19 09:44 Colace PO 100 mg DAILY NADINE Administration Enoxaparin Sodium 30 mg 12/25/19 09:00 12/28/19 20:22 Lovenox SC 30 mg 0900,2100 NADINE Administration Famotidine 20 mg 12/28/19 21:00 12/28/19 20:22 Pepcid PO 20 mg BID NADINE Administration Hydralazine HCl 10 mg 12/25/19 09:12 12/27/19 22:40 Apresoline SLOW IVP 10 mg Q4H PRN Administration SBP Greater Than 180 Hydralazine HCl 25 mg 12/25/19 18:00 12/29/19 05:11 Apresoline PO 25 mg Q6HR NADINE Administration Cefepime HCl 2 gm/ Sodium 100 mls @ 200 mls/hr 12/23/19 17:00 12/29/19 05:10 Chloride IVPB 100 mls 0500,1700 NADINE Administration Potassium Chloride 40 meq/ 100 mls @ 50 mls/hr 12/23/19 17:05 12/27/19 05:13 Device IVPB 100 mls ASDIR PRN Administration FOR SERUM K+ 2.5 - 3.5 Potassium Chloride/Sodium Chloride 1,000 mls @ 75 mls/hr 12/27/19 08:45 12/28 01:58 1/2 Ns W/Kcl 20 Meq IV Not Given .[id number] [facility] Insulin Human Lispro 0 units 12/25/19 01:04 12/29/19 05:11 Humalog SC 6 unit .AGGRESSIVE SLIDING PRN Administration AGGRESSIVE SLIDING SCALE Protocol Insulin Human NPH 25 unit 12/27/19 21:00 12/28/19 20:22 Humulin N SC 25 unit BID NADINE Administration Lisinopril 40 mg 12/25/19 09:00 12/28/19 09:44 Zestril PO 40 mg DAILY NADINE Administration Methylprednisolone Sodium Succinate 40 mg 12/26/19 09:00 12/28/19 09:41 Solu-Medrol IVP 40 mg DAILY NADINE Administration Metoprolol Tartrate 5 mg 12/27/19 00:03 12/27/19 21:49 Lopressor IVP 5 mg Q6H PRN Administration SBP GREATER THAN 160 Nitroglycerin 0.5 inch 12/26/19 13:30 12/29/19 01:53 Nitro-Bid 2% Ointment TOP 0.5 inch Q6H NADINE Administration Saccharomyces Boulardii 250 mg 12/26/19 09:00 12/28/19 09:46 Florastor PO 250 mg DAILY NADINE Administration Sodium Chloride 10 ml 12/24/19 21:00 12/28/19 20:31 Flush - Normal Saline IVF 10 ml Q12HR NADINE Administration - Exam General Appearance: NAD Neck: supple, no JVD Respiratory: rales, rhonchi, wheezes (scat) Gastrointestinal: soft, non-tender, non-distended, normal bowel sounds Extremities: no cyanosis, no clubbing Hosp A/P - Plan DVT proph w/lovenox, DVT proph w/SCDs Severe Sepsis 2/2 to RLE Cellulitis Acute respiratory failure with hypoxia/hypercapnia due to retained secretions ? Aspiration Pneumonia - extubated 12/25 Hypertension DM2 Swallow dys - on tube feeds Hypernatremia - improving Dementia h/o CVA Mild persistent Asthma Depression Chronic Anticoagulation Morbid Obesity BMI 40.9 CKD 3 PLAN: Cont IV Cefepime Cont NPH with sliding scale Cont Steroids Cont Clonidine/Hydralazine/Amlodipine/Lisinopril Cont tube feeds Cont other meds as above AM labs Cont supportive care
--- NOTE | 2019-12-29 08:48 | RAD ---
CHEST 1 VIEW: Date: 12/29/2019 HISTORY: Respiratory insufficiency. FINDINGS: NG tube and left subclavian catheter in place. Mild bilateral vascular congestion with slight bluntin g of the costophrenic angles, evidence for small pleural effusions. Minimal patchy bibasilar parenchy mal changes. Appearance is overall stable. IMPRESSION: Stable bibasilar patchy parenchymal changes and probable small pleural effusions. Continue short-term follow-up. POS: [facility]
[2019-12-29] MEDS: NPH, Human Insulin Isophane 300 UNIT/3 ML VIAL SC SCH ×2 (09:26→20:12)
[2019-12-29] MEDS: Enoxaparin Sodium 30 MG/0.3 ML SYRINGE SC SCH (09:26)
[2019-12-29] MEDS: methylPREDNISolone Sod Succ 40 MG VIAL IVP SCH (09:29)
[2019-12-29] MEDS: Famotidine 20 MG TAB PO SCH (09:38)
[2019-12-29] MEDS: Lisinopril 20 MG TAB PO SCH (09:39)
[2019-12-29] MEDS: Amlodipine 10 MG TAB PO SCH (09:40)
[2019-12-29] MEDS: Saccharomyces boulardii 250 MG CAP PO SCH (09:40)
[2019-12-29] MEDS: Docusate 100 MG CAP PO SCH (09:46)
--- NOTE | 2019-12-29 13:22 | PRG ---
DATE OF SERVICE: 12/29/2019 SUBJECTIVE: Ms. Bird is afebrile. OBJECTIVE: VITAL SIGNS: Heart rate is 99, blood pressure 150/78. LUNGS: Clear. HEART: Regular rhythm. ABDOMEN: Soft. EXTREMITIES: Without edema. LABORATORY DATA: White count 18.7, hemoglobin 8.8, and platelets 289. Sodium 145, potassium 4.2, chloride 108, bicarb 30, BUN 37, and creatinine 1.12. Intake and outputs not recorded. Chest x-ray shows bibasilar patchy infiltrates. IMPRESSION: Aspiration pneumonia with severe deconditioning, clinically stable at this point in time. Job ID: [id number]
[2019-12-29] MEDS ORDERED: Pantoprazole 40 MG VIAL IVP SCH (13:45)
[2019-12-29] MEDS: Nystatin 500,000 UNITS/5 ML UDCUP SSW SCH ×3 (14:18→20:10)
[2019-12-29 14:48] LABS: Hemoglobin 9.3 g/dL (12.0-16.0)
--- NOTE | 2019-12-29 18:48 | PDOC.HOSPP ---
- Subjective Encounter Date: 12/29/19 Encounter Time: 12:30 Subjective: Patient seen and examined for Resp failure/Sepsis. Tolerating tube feeds. No fever/CP/SOB. No new complaints. No overnight events - Objective Vital Signs & Weight: Vital Signs (12 hours) Temp Pulse Resp BP Pulse Ox 12/29/19 18:30 125/84 12/29/19 15:38 98.7 F 12/29/19 14:47 89 22 H 99 12/29/19 12:36 99 152/78 H 12/29/19 11:51 98.5 F 12/29/19 10:57 90 19 99 12/29/19 10:00 20 12/29/19 09:40 90 12/29/19 09:39 131/65 12/29/19 09:19 99 12/29/19 09:00 18 12/29/19 08:01 98 F 12/29/19 08:00 18 12/29/19 07:00 95 16 100 Weight Admit Weight 243 lb Weight 243 lb 2 oz Most Recent Monitor Data Heart Rate from ECG 109 NIBP 125/84 NIBP BP-Mean 97 Respiration from ECG 25 SpO2 98 I&O: 12/28/19 12/29/19 12/30/19 06:59 06:59 06:59 Intake Total 3109 4048 285 Output Total 3320 2400 Balance -211 1648 285 Result Diagrams: 12/29/19 14:25 12/29/19 03:27 Additional Labs: Accuchecks 12/29/19 12/29/19 12/29/19 15:20 12:10 08:26 POC Glucose 251 H 285 H 205 H 12/29/19 12/29/19 12/29/19 05:38 04:44 00:00 POC Glucose 200 H 201 H 174 H 12/28/19 19:50 POC Glucose 251 H Hospitalist ROS - Review of Systems Respiratory: denies: cough, dry, shortness of breath, hemoptysis, SOB with excertion, pleuritic pain, sputum, wheezing, other Cardiovascular: denies: chest pain, palpitations, orthopnea, paroxysmal noc. dyspnea, edema, light headedness, other - Medication Medications: Active Medications Generic Name Dose Route Start Last Admin Trade Name Freq PRN Reason Stop Dose Admin Albuterol/Ipratropium 3 ml 12/27/19 10:30 12/29/19 14:47 Duoneb EZPAP 3 ml [id number] NADINE Administration Amlodipine Besylate 10 mg 12/25/19 09:00 12/29/19 09:40 Norvasc PO 10 mg DAILY NADINE Administration Clonidine 0.1 mg 12/26/19 20:00 12/26/19 20:25 Ockosufz-Uic-4 Patch TD 0.1 mg Q7D@2000 [facility] Administration Docusate Sodium 100 mg 12/25/19 09:00 12/29/19 09:46 Colace PO 100 mg DAILY NADINE Administration Enoxaparin Sodium 30 mg 12/25/19 09:00 12/29/19 09:26 Lovenox SC 30 mg 0900,2099 [facility] Administration Hydralazine HCl 10 mg 12/25/19 09:12 12/27/19 22:40 Apresoline SLOW IVP 10 mg Q4H PRN Administration SBP Greater Than 180 Cefepime HCl 2 gm/ Sodium 100 mls @ 200 mls/hr 12/23/19 17:00 12/29/19 17:23 Chloride IVPB 100 mls 0500,1700 NADINE Administration Potassium Chloride 40 meq/ 100 mls @ 50 mls/hr 12/23/19 17:05 12/27/19 05:13 Device IVPB 100 mls ASDIR PRN Administration FOR SERUM K+ 2.5 - 3.5 Potassium Chloride/Sodium Chloride 1,000 mls @ 75 mls/hr 12/27/19 08:45 12/28 14:13 1/2 Ns W/Kcl 20 Meq IV Not Given .[id number] [facility] Insulin Human Lispro 0 units 12/25/19 01:04 12/29/19 17:26 Humalog SC 9 unit .AGGRESSIVE SLIDING PRN Administration AGGRESSIVE SLIDING SCALE Protocol Insulin Human NPH 25 unit 12/27/19 21:00 12/29/19 09:26 Humulin N SC 25 unit BID [facility] Administration Lisinopril 40 mg 12/25/19 09:00 12/29/19 09:39 Zestril PO 40 mg DAILY [facility] Administration Methylprednisolone Sodium Succinate 40 mg 12/26/19 09:00 12/29/19 09:29 Solu-Medrol IVP 40 mg DAILY [facility] Administration Metoprolol Tartrate 5 mg 12/27/19 00:03 12/27/19 21:49 Lopressor IVP 5 mg Q6H PRN Administration SBP GREATER THAN 160 Nitroglycerin 0.5 inch 12/26/19 13:30 12/29/19 14:15 Nitro-Bid 2% Ointment TOP 0.5 inch Q6H NADINE Administration Nystatin 500,000 units 12/29/19 13:00 12/29/19 17:21 Mycostatin SSW 500,000 units QID NADINE Administration Saccharomyces Boulardii 250 mg 12/26/19 09:00 12/29/19 09:40 Florastor PO 250 mg DAILY NADINE Administration Sodium Chloride 10 ml 12/24/19 21:00 12/29/19 09:45 Flush - Normal Saline IVF 10 ml Q12HR NADINE Administration - Exam Neck: supple Heart: RRR, no gallops Respiratory: no wheezes, rales Gastrointestinal: soft, non-tender, normal bowel sounds Extremities: no cyanosis, no clubbing Psychiatric: A&O x 3 Hosp A/P - Plan DVT proph w/lovenox, DVT proph w/SCDs Severe Sepsis 2/2 to RLE Cellulitis Acute respiratory failure with hypoxia/hypercapnia due to retained secretions ? Aspiration Pneumonia - extubated 12/25 Hypertension DM2 Swallow dys - on tube feeds Hypernatremia - improving Dementia h/o CVA Mild persistent Asthma Depression Chronic Anticoagulation Morbid Obesity BMI 40.9 CKD 3 PLAN: On [place] water protocol Cont IV Cefepime Cont 25 units BID NPH with sliding scale Reduce Clonidine and Hydralazine DC NTG patch Cont Amlodipine/Lisinopril Cont tube feeds Cont other meds as above Cont IMCU monitoring Update; Pt had dark BM - hemodynamically stable. Will monitor H/H. Hold Lovenox. Add IV PPI. Type and screen.
[2019-12-29 20:08] LABS: Hemoglobin 8.9 g/dL (12.0-16.0)
[2019-12-29] MEDS: Pantoprazole 40 MG VIAL IVP SCH (20:10)
[2019-12-30] MEDS: HumaLOG 300 UNITS/3 ML VIAL SC PRN ×5 (01:09→19:56)
[2019-12-30] MEDS: Nitroglycerin 2% Ointment 1 INCH/1 GM Packet TOP SCH ×3 (01:10→15:38)
[2019-12-30 03:52] LABS: #Eosinphils 0.3 thou/uL (0.0-0.7); #Lymphocytes 3.3 thou/uL (1.20-3.40); #Monocytes 1.5 thou/uL (0.11-0.59); #Neutrophils 11.7 thou/uL (1.40-6.50); %Basophils 0.1 % (0.0-1.0); %Eosinophils 1.8 % (0.0-10.0); %Lymphocytes 19.5 % (21.0-51.0); %Monocytes 8.7 % (0.0-10.0); %Neutrophils 69.8 % (42.0-75.0); Hemoglobin 8.5 g/dL (12.0-16.0); Mean Corpuscular HGB CONC 31.6 g/dL (32.0-36.0); Mean Corpuscular Hemoglobin 31.7 pg (27.0-31.0); Mean Platelet Volume 8.7 fL (7.4-10.4); Platelet Count 257 thou/uL (130-400); RBC Distribution Width 13.5 % (11.5-14.5); Red Blood Cell (RBC) Count 2.67 mill/uL (4.20-5.40); White Blood Cell (WBC) Count 16.8 thou/uL (4.8-10.8)
[2019-12-30 04:07] LABS: Anion Gap 10 mmol/L (10-20); BUN (Urea Nitrogen) 32 mg/dL (9.8-20.1); Calc. Creatinine Clearance 83 mL/min (70-130); Calcium 8.1 mg/dL (7.8-10.44); Carbon Dioxide 29 mmol/L (23-31); Chloride 106 mmol/L (98-107); Estimated GFR-MDRD 45; Glucose 194 mg/dL (80-115); Potassium 4.1 mmol/L (3.5-5.1); Sodium 141 mmol/L (136-145)
[2019-12-30] MEDS: Cefepime 2 GM in Sodium Chloride 0.9% 100 ML IVPB SCH (05:01)
[2019-12-30] MEDS: 1/2 NS w/KCL 20 mEq 1,000 ML IV SCH ×2 (05:50→10:38)
[2019-12-30] MEDS: cloNIDine 0.2 MG TAB PO SCH ×3 (10:26→20:40)
[2019-12-30] MEDS: hydrALAZINE 25 MG TAB PO SCH ×3 (10:27→20:40)
[2019-12-30] MEDS: Nystatin 500,000 UNITS/5 ML UDCUP SSW SCH ×4 (10:27→20:41)
[2019-12-30] MEDS: Lisinopril 20 MG TAB PO SCH (10:27)
[2019-12-30] MEDS: Saccharomyces boulardii 250 MG CAP PO SCH (10:27)
[2019-12-30] MEDS: NPH, Human Insulin Isophane 300 UNIT/3 ML VIAL SC SCH ×2 (10:28→19:57)
[2019-12-30] MEDS: Pantoprazole 40 MG VIAL IVP SCH ×2 (10:28→20:42)
[2019-12-30] MEDS: methylPREDNISolone Sod Succ 40 MG VIAL IVP SCH (10:28)
[2019-12-30] MEDS: Amlodipine 10 MG TAB PO SCH (12:08)
[2019-12-30] MEDS: Docusate 100 MG CAP PO SCH (12:20)
[2019-12-30] MEDS: hydrALAZINE 20 MG/ML VIAL SLOW IVP PRN (13:14)
--- NOTE | 2019-12-30 13:52 | PRG ---
DATE OF SERVICE: 12/30/2019 SUBJECTIVE: Ms. Bird had no complaints. She was lying flat in bed. when I evaluated her. OBJECTIVE: VITAL SIGNS: She is afebrile, heart rate 98, respiratory rate 22, oximetry is 99% on 3 L, blood pressure 160/78. LUNGS: Clear. HEART: Regular rhythm. ABDOMEN: Soft and protuberant. EXTREMITIES: Without edema. LABORATORY DATA: White count 16.8, hemoglobin 8.5, platelets 257. Sodium 141, potassium 4.1, chloride 106, bicarb 29, BUN 32, creatinine 1.22. IMPRESSION: 1. Aspiration pneumonia, clinically stable. 2. Severe deconditioning. Placement is the next step. Her IV antimicrobial therapy will be discontinued. She will be switched to p.o. antibiotics. She will continue with nebulizer treatments. She will be also switched to p.o. steroids today. Job ID: [id number]
--- NOTE | 2019-12-30 16:57 | PDOC.HOSPP ---
- Subjective Encounter Date: 12/30/19 Subjective: No new complaints today. No BMs since the morning. - Objective Vital Signs & Weight: Vital Signs (12 hours) Temp Pulse Pulse Pulse Resp BP BP 12/30/19 15:11 102 H 24 H 12/30/19 15:08 98.8 F 12/30/19 14:46 98 12/30/19 13:14 98 12/30/19 11:48 100 98 193/81 H 175/85 H 12/30/19 11:15 98.1 F 12/30/19 11:06 98 22 H 12/30/19 07:06 103 H 21 H 12/30/19 07:05 99.3 F Pulse Ox Pulse Ox Pulse Ox 12/30/19 15:11 97 12/30/19 15:08 12/30/19 14:46 12/30/19 13:14 12/30/19 11:48 98 100 12/30/19 11:15 12/30/19 11:06 99 12/30/19 07:06 12/30/19 07:05 Weight Admit Weight 243 lb Weight 239 lb Most Recent Monitor Data Heart Rate from ECG 98 NIBP 159/79 NIBP BP-Mean 105 Respiration from ECG 28 SpO2 97 I&O: 12/29/19 12/30/19 12/31/19 06:59 06:59 06:59 Intake Total 3478 4116 190 Output Total 2400 3700 Balance 1078 416 190 Result Diagrams: 12/30/19 03:40 12/30/19 03:40 Additional Labs: Accuchecks 12/30/19 12/30/19 12/30/19 16:11 12:09 08:04 POC Glucose 372 H 305 H 231 H 12/30/19 12/30/19 12/29/19 04:33 00:08 20:20 POC Glucose 199 H 225 H 213 H 12/29/19 15:20 POC Glucose 251 H Hospitalist ROS - Medication Medications: Active Medications Generic Name Dose Route Start Last Admin Trade Name Freq PRN Reason Stop Dose Admin Albuterol/Ipratropium 3 ml 12/27/19 10:30 12/30/19 15:11 Duoneb EZPAP 3 ml [id number] NADINE Administration Amlodipine Besylate 10 mg 12/25/19 09:00 12/30/19 12:08 Norvasc PO 10 mg DAILY NADINE Administration Clonidine 0.1 mg 12/26/19 20:00 12/26/19 20:25 Dumuvqqw-Yfc-1 Patch TD 0.1 mg Q7D@1999 [facility]INE Administration Clonidine 0.2 mg 12/29/19 21:00 12/30/19 14:46 Catapres PO 0.2 mg TID NADINE Administration Docusate Sodium 100 mg 12/25/19 09:00 12/30/19 12:20 Colace PO Not Given DAILY NADINE Enoxaparin Sodium 30 mg 12/25/19 09:00 12/29/19 09:26 Lovenox SC 30 mg 09,2099 [facility]INE Administration Hydralazine HCl 10 mg 12/25/19 09:12 12/30/19 13:14 Apresoline SLOW IVP 10 mg Q4H PRN Administration SBP Greater Than 180 Hydralazine HCl 25 mg 12/29/19 21:00 12/30/19 14:46 Apresoline PO 25 mg TID NADINE Administration Potassium Chloride 40 meq/ 100 mls @ 50 mls/hr 12/23/19 17:05 12/27/19 05:13 Device IVPB 100 mls ASDIR PRN Administration FOR SERUM K+ 2.5 - 3.5 Potassium Chloride/Sodium Chloride 1,000 mls @ 75 mls/hr 12/27/19 08:45 12/29 10:38 1/2 Ns W/Kcl 20 Meq IV 1,000 mls .[id number] NADINE Administration Insulin Human Lispro 0 units 12/25/19 01:04 12/30/19 13:13 Humalog SC 11 unit .AGGRESSIVE SLIDING PRN Administration AGGRESSIVE SLIDING SCALE Protocol Insulin Human NPH 25 unit 12/27/19 21:00 12/30/19 10:28 Humulin N SC 25 unit BID NADINE Administration Lisinopril 40 mg 12/25/19 09:00 12/30/19 10:27 Zestril PO 40 mg DAILY [facility]INE Administration Metoprolol Tartrate 5 mg 12/27/19 00:03 12/27/19 21:49 Lopressor IVP 5 mg Q6H PRN Administration SBP GREATER THAN 160 Nystatin 500,000 units 12/29/19 13:00 12/30/19 13:14 Mycostatin SSW 500,000 units QID NADINE Administration Pantoprazole Sodium 40 mg 12/29/19 21:00 12/30/19 10:28 Protonix IVP 40 mg Q12HR NADINE Administration Saccharomyces Bonidadii 250 mg 12/26/19 09:00 12/30/19 10:27 Florastor PO 250 mg DAILY [facility]INE Administration Sodium Chloride 10 ml 12/24/19 21:00 12/30/19 12:21 Flush - Normal Saline IVF Not Given Q12HR NADINE - Exam General Appearance: awake alert ENT: normocephalic atraumatic Neck: supple Heart: RRR Respiratory: normal chest expansion, tachypneic Gastrointestinal: soft, non-tender, non-distended Neurological: cranial nerve grossly intact Hosp A/P - Plan Severe Sepsis 2/2 to RLE Cellulitis Acute respiratory failure with hypoxia/hypercapnia due to retained secretions ? Aspiration Pneumonia - extubated 12/25 GI Bleed Hypertension DM2 Swallow dys - on tube feeds Hypernatremia - improving Dementia h/o CVA Mild persistent Asthma Depression Chronic Anticoagulation Morbid Obesity BMI 40.9 CKD 3 PLAN: 12/28: On [place] water protocol Cont IV Cefepime Cont 25 units BID NPH with sliding scale Reduce Clonidine and Hydralazine DC NTG patch Cont Amlodipine/Lisinopril Cont tube feeds Cont other meds as above Cont IMCU monitoring Update; Pt had dark BM - hemodynamically stable. Will monitor H/H. Hold Lovenox. Add IV PPI. Type and screen. 12/29: The patient has no new complaints today. No further episodes of melena today. She is scheduled for EGD in the morning. Antibiotics switched to oral cefdinir. Continue tube feeding until midnight. Lovenox on hold.
--- NOTE | 2019-12-30 17:53 | RAD ---
ABDOMEN ONE VIEW: History: NG tube placement Comparison: None FINDINGS: Enteric tube is place with the tip at the gastric body. Side port is just below the GE junction. IMPRESSION: Satisfactory location of the enteric tube. POS: HOME
[2019-12-30] MEDS: Cefdinir 300 MG CAP PO SCH (20:40)
--- NOTE | 2019-12-30 22:02 | CON ---
DATE OF CONSULTATION: 12/30/2019 REQUESTING PHYSICIAN: Dr. Elias. REASON FOR CONSULTATION: Melena. HISTORY OF PRESENT ILLNESS: Sussy Bird is a 64-year-old woman with a history of morbid obesity, also prior CVA and diabetes. She was initially hospitalized at the [facility] on 12/19/2019 with right lower extremity cellulitis and sepsis. She was transferred here on the with altered mental status and hypoxia, requiring intubation. She developed pneumonia, which was eventually concluded to be aspiration pneumonia with further treatment with antibiotics and good supportive care. She was able to be extubated. She has had some swallowing dysfunction and has been receiving tube feeds, tolerating these well. She is not having any abdominal pain yesterday, though there was note that she had a dark bowel movement. I am unsure how many of these stools were witnessed. The patient herself does not recall. Her Lovenox was held. She has remained hemodynamically stable. FOBT was checked and is positive. Evidently, the patient is on chronic anticoagulation as an outpatient. There is no known history of peptic ulcer disease. PPI was started today, so far per nursing staff, she has not had any stool output this shift. There has been no vomiting. I note that the patient underwent EGD and colonoscopy way back in 2008. The EGD was normal and colonoscopy showed only internal hemorrhoids at that time. REVIEW OF SYSTEMS: Full review of systems including constitutional, head, eyes, ears, nose, throat, GI, , cardiovascular, respiratory, musculoskeletal, and neurologic systems is negative except as noted in the HPI. PAST MEDICAL HISTORY: Obesity, CVA, hyperlipidemia, lymphedema, diabetes type 2, asthma, and right lower extremity cellulitis. SOCIAL HISTORY: She is a former smoker. Lives in a custodial. FAMILY HISTORY: Noncontributory. ALLERGIES: CODEINE. CURRENT MEDICATIONS: 1. DuoNeb q.4 hours. 2. Amlodipine. 3. Clonidine 0.2 mg t.i.d. 4. Lovenox 30 mg subcutaneous b.i.d. 5. Hydralazine 25 mg t.i.d. 6. Insulin sliding scale. 7. Lisinopril 40 mg daily. 8. Nystatin swish and swallow q.i.d. 9. Pantoprazole 40 mg IV q.24 hours started yesterday. 10. Florastor 250 mg daily. PHYSICAL EXAMINATION: VITAL SIGNS: Temperature 98.0, pulse 101, blood pressure 163/88, 100% oxygen saturation on room air. GENERAL: A 64-year-old woman, lying in bed comfortably, in no distress. MENTAL: She is sleepy but arousable. She is able to conversant and report details about her symptoms. SKIN: No jaundice and no rashes were palpable. EYES: No scleral icterus. Extraocular movements intact. ENT: Mucous membranes moist. No oral lesions. LYMPH: No submandibular or supraclavicular lymphadenopathy. Thyroid nontender to palpation. HEART: Regular rate and rhythm. LUNGS: Clear to auscultation bilaterally. ABDOMEN: Obese. Bowel sounds present. Soft and nontender to palpation throughout. EXTREMITIES: Trace bilateral pretibial edema. NEUROLOGIC: Extraocular movements intact. LABORATORY STUDIES: Hemoglobin was 10.9 on transfer here one week ago. Over the past three days, it has dropped from 10.1 to 8.5 this morning. WBC is 16.8, platelets 257. INR 1.2. Sodium 141, potassium 4.1, BUN 32, creatinine 1.22, glucose 305. IMAGING STUDIES: Chest x-ray most recently from yesterday shows stable bibasilar patchy parenchymal changes and small pleural effusions. Overall stable. ASSESSMENT AND PLAN: 1. Melena, first noted yesterday, appears to have slowed down today. 2. Anemia, possibly from acute blood loss, with hemoglobin declined from 10.1 to 8.5 over the past 3 days. 3. Aspiration pneumonia, improved. 4. Severe deconditioning. The patient was started on pantoprazole IV yesterday. There has been no melena observed today; however, the patient has had significant decline in hemoglobin over the past few days. It is certainly possible that she may have developed a stress ulceration given the evident indication for chronic anticoagulation, further investigation is reasonable. We will plan for diagnostic esophagogastroduodenoscopy tomorrow. Please hold tube feeds at midnight, continue to hold Lovenox for now, continue the PPI IV. Thank you for the consultation. Please call anytime with questions or concerns. Job ID: [id number]
[2019-12-31 05:02] LABS: #Eosinphils 0.1 thou/uL (0.0-0.7); #Lymphocytes 3.1 thou/uL (1.20-3.40); #Neutrophils 10.7 thou/uL (1.40-6.50); %Basophils 0.2 % (0.0-1.0); %Eosinophils 0.9 % (0.0-10.0); %Lymphocytes 20.8 % (21.0-51.0); %Monocytes 6.9 % (0.0-10.0); %Neutrophils 71.2 % (42.0-75.0); Hemoglobin 8.5 g/dL (12.0-16.0); Mean Corpuscular HGB CONC 31.6 g/dL (32.0-36.0); Mean Corpuscular Hemoglobin 31.8 pg (27.0-31.0); Mean Platelet Volume 9.1 fL (7.4-10.4); Platelet Count 265 thou/uL (130-400); RBC Distribution Width 13.5 % (11.5-14.5); Red Blood Cell (RBC) Count 2.67 mill/uL (4.20-5.40); White Blood Cell (WBC) Count 15.1 thou/uL (4.8-10.8)
[2019-12-31 05:21] LABS: Anion Gap 11 mmol/L (10-20); BUN (Urea Nitrogen) 29 mg/dL (9.8-20.1); Calc. Creatinine Clearance 87 mL/min (70-130); Calcium 8.3 mg/dL (7.8-10.44); Carbon Dioxide 29 mmol/L (23-31); Chloride 105 mmol/L (98-107); Estimated GFR-MDRD 49; Glucose 177 mg/dL (80-115); Potassium 4.2 mmol/L (3.5-5.1); Sodium 141 mmol/L (136-145)
[2019-12-31] MEDS: NPH, Human Insulin Isophane 300 UNIT/3 ML VIAL SC SCH ×2 (09:00→21:45)
[2019-12-31] MEDS ORDERED: Ketamine 50 MG/ML (10ML VIAL) ONE (09:35)
[2019-12-31] MEDS ORDERED: Phenylephrine 10 MG/ML VIAL ONE (09:35)
[2019-12-31] MEDS: Metoprolol Tartrate 5 MG/5 ML VIAL IVP PRN (09:36)
--- NOTE | 2019-12-31 10:30 | OP ---
DATE OF PROCEDURE: 12/31/2019 PROCEDURE PERFORMED: Esophagogastroduodenoscopy, diagnostic. INDICATIONS: 1. Melena, single episode 2 days ago. 2. Acute blood loss anemia. MEDICATIONS: See Anesthesia record. FINDINGS: After discussion of the risks, benefits, and alternatives of the procedure, informed consent was obtained and witnessed. Pre-endoscopic cardiopulmonary examination was satisfactory. Time-out was performed before sedation was achieved. Sedation was achieved with Anesthesia assistance in the endoscopy unit. A Pentax adult upper endoscope was placed into the oropharynx and passed through the cricopharyngeus under direct visualization. There was some moderate erosive gastritis in the distal 5 cm of the esophagus with no active bleeding. The endoscope was advanced into the stomach. Forward and retroflexed views of the entire gastric mucosa were obtained. There was some patchy erythema throughout the gastric fundus, body, and antrum with no erosions or ulcerations noted. The endoscope was advanced through the pylorus and into the duodenal bulb. In the duodenal bulb, there are 2 large ulcerations, one is in the superior aspect of the bulb and the other is in the inferior aspect of the bulb. Both of these ulcerations are cratered, but clean based with no high-risk stigmata for rebleeding. There was no active bleeding. No adherent clot. The endoscope was advanced beyond this area into the second portion of the duodenum, which appeared normal. The upper endoscope was then completely withdrawn and the patient allowed to recover. The patient tolerated the procedure well. There were no immediate postprocedure complications. IMPRESSION: 1. Two large nonbleeding, clean-based ulcers in the duodenal bulb. 2. Patchy nonerosive gastritis. 3. Distal erosive esophagitis. RECOMMENDATION: 1. Check H pylori serology. If positive, treat with triple therapy and confirm eradication. 2. Continue with the IV proton pump inhibitor every 12 hours for the duration of her hospitalization. On hospital discharge, transition to twice daily oral dosing of proton pump inhibitor, and continue this for at least 2 months. 3. Feeds can be resumed. GI will sign off. Please call back if needed. Job ID: [id number]
[2019-12-31] MEDS: Pantoprazole 40 MG VIAL IVP SCH ×2 (10:57→21:17)
--- NOTE | 2019-12-31 11:20 | PDOC.HOSPP ---
- Subjective Encounter Date: 12/31/19 Subjective: Status post EGD. Patient has no new complaints at this time. - Objective Vital Signs & Weight: Vital Signs (12 hours) Temp Pulse Resp Pulse Ox 12/31/19 10:57 91 16 99 12/31/19 07:39 91 L 12/31/19 07:30 98.8 F 12/31/19 07:09 93 L 12/31/19 07:06 98 25 H 98 12/31/19 03:46 20 97 12/31/19 03:44 98.3 F 12/31/19 00:22 98.7 F Weight Admit Weight 243 lb Weight 235 lb Most Recent Monitor Data Heart Rate from ECG 96 NIBP 169/70 NIBP BP-Mean 103 Respiration from ECG 25 SpO2 94 I&O: 12/30/19 12/31/19 01/01/20 06:59 06:59 06:59 Intake Total 4116 1632 95 Output Total 3700 4025 Balance 416 -6603 95 Result Diagrams: 12/31/19 04:50 12/31/19 04:50 Additional Labs: Accuchecks 12/31/19 12/31/19 12/30/19 08:16 03:41 23:35 POC Glucose 224 H 183 H 192 H 12/30/19 12/30/19 12/30/19 19:55 16:11 12:09 POC Glucose 344 H 372 H 305 H Hospitalist ROS - Medication Medications: Active Medications Generic Name Dose Route Start Last Admin Trade Name Freq PRN Reason Stop Dose Admin Albuterol/Ipratropium 3 ml 12/27/19 10:30 12/31/19 10:57 Duoneb EZPAP 3 ml [id number] NADINE Administration Amlodipine Besylate 10 mg 12/25/19 09:00 12/30/19 12:08 Norvasc PO 10 mg DAILY NADINE Administration Cefdinir 300 mg 12/30/19 21:00 12/30/19 20:40 Omnicef PO 300 mg BID NADINE Administration Clonidine 0.2 mg 12/29/19 21:00 12/30/19 20:40 Catapres PO 0.2 mg TID NADINE Administration Docusate Sodium 100 mg 12/25/19 09:00 12/30/19 12:20 Colace PO Not Given DAILY NADINE Hydralazine HCl 10 mg 12/25/19 09:12 12/30/19 13:14 Apresoline SLOW IVP 10 mg Q4H PRN Administration SBP Greater Than 180 Hydralazine HCl 25 mg 12/29/19 21:00 12/30/19 20:40 Apresoline PO 25 mg TID NADINE Administration Potassium Chloride 40 meq/ 100 mls @ 50 mls/hr 12/23/19 17:05 12/27/19 05:13 Device IVPB 100 mls ASDIR PRN Administration FOR SERUM K+ 2.5 - 3.5 Insulin Human Lispro 0 units 12/25/19 01:04 12/30/19 19:56 Humalog SC 11 unit .AGGRESSIVE SLIDING PRN Administration AGGRESSIVE SLIDING SCALE Protocol Insulin Human NPH 25 unit 12/27/19 21:00 12/30/19 19:57 Humulin N SC 25 unit BID NADINE Administration Lisinopril 40 mg 12/25/19 09:00 12/30/19 10:27 Zestril PO 40 mg DAILY NADINE Administration Nystatin 500,000 units 12/29/19 13:00 12/30/19 20:41 Mycostatin SSW 500,000 units QID NADINE Administration Pantoprazole Sodium 40 mg 12/29/19 21:00 12/31/19 10:57 Protonix IVP 40 mg Q12HR NADINE Administration Saccharomyces Boulardii 250 mg 12/26/19 09:00 12/30/19 10:27 Florastor PO 250 mg DAILY NADINE Administration Sodium Chloride 10 ml 12/24/19 21:00 12/30/19 22:21 Flush - Normal Saline IVF 10 ml Q12HR NADINE Administration Hosp A/P - Plan Severe Sepsis 2/2 to RLE Cellulitis Acute respiratory failure with hypoxia/hypercapnia due to retained secretions ? Aspiration Pneumonia - extubated 12/25 GI Bleed Hypertension DM2 Swallow dys - on tube feeds Hypernatremia - improving Dementia h/o CVA Mild persistent Asthma Depression Chronic Anticoagulation Morbid Obesity BMI 40.9 CKD 3 PLAN: 12/28: On [place] water protocol Cont IV Cefepime Cont 25 units BID NPH with sliding scale Reduce Clonidine and Hydralazine DC NTG patch Cont Amlodipine/Lisinopril Cont tube feeds Cont other meds as above Cont IMCU monitoring Update; Pt had dark BM - hemodynamically stable. Will monitor H/H. Hold Lovenox. Add IV PPI. Type and screen. 12/29: The patient has no new complaints today. No further episodes of melena today. She is scheduled for EGD in the morning. Antibiotics switched to oral cefdinir. Continue tube feeding until midnight. Lovenox on hold. 12/30: Status post EGD showing erosive esophagitis with nonerosive gastritis and 2 duodenal ulcers with no active bleeding. Biopsies for bacterial myofibrillar has been obtained. Protonix has been initiated. Plan for modified barium swallow evaluation tomorrow. The patient pulled out her NG tube yesterday and possible aspiration was noted. We will check chest x-ray. She is still requiring oxygen. Remains on oral antibiotics. No signs of sepsis.
[2019-12-31] MEDS: Lisinopril 20 MG TAB PO SCH (12:02)
[2019-12-31] MEDS: cloNIDine 0.2 MG TAB PO SCH ×3 (12:04→21:17)
[2019-12-31] MEDS: hydrALAZINE 25 MG TAB PO SCH ×3 (12:05→21:17)
[2019-12-31] MEDS: Cefdinir 300 MG CAP PO SCH ×2 (12:05→21:17)
[2019-12-31] MEDS: Docusate 100 MG CAP PO SCH (12:05)
[2019-12-31] MEDS: predniSONE 20 MG TAB PO SCH (12:05)
[2019-12-31] MEDS: Saccharomyces boulardii 250 MG CAP PO SCH (12:06)
[2019-12-31] MEDS: Nystatin 500,000 UNITS/5 ML UDCUP SSW SCH ×5 (12:06→21:17)
[2019-12-31] MEDS: Amlodipine 10 MG TAB PO SCH (12:06)
--- NOTE | 2019-12-31 12:32 | PRG ---
DATE OF SERVICE: 12/31/2019 SUBJECTIVE: The patient is doing fairly well all things considered. OBJECTIVE: VITAL SIGNS: Temperature 98.7, pulse 95, blood pressure 160/81. HEENT: Unremarkable. NECK: No adenopathy or JVD. LUNGS: Coarse breath sounds anteriorly. CARDIAC: S1 and S2 regular. ABDOMEN: Soft. EXTREMITIES: Edematous legs. LABORATORY DATA: White cell count 15, hematocrit 26.9, platelet count 265. Sodium 141, potassium 4.2, BUN 29, creatinine 1.1, glucose 177. ASSESSMENT: 1. Aspiration pneumonia. 2. Severe deconditioning. PLAN: She should be stable enough transfer to medical floor. She is on oral antibiotics. Job ID: [id number]
--- NOTE | 2019-12-31 13:10 | RAD ---
CHEST 1 VIEW: HISTORY: Hypoxia. COMPARISON: 12/29/2019. FINDINGS: Very mild increased markings in the infrahilar regions but showing definite improvement from the prio r study. No new process. IMPRESSION: Minimal increased markings in the infrahilar regions but overall improved from prior exam. No signif icant new process. POS: [facility]
[2019-12-31] MEDS: 1/2 NS w/KCL 20 mEq 1,000 ML IV SCH (14:10)
--- NOTE | 2019-12-31 14:30 | RAD ---
Modified barium swallow HISTORY: Dysphagia. Feeding difficulties. FINDINGS: Exam was performed in conjunction with speech pathology with multiple consistencies. Video review is available and demonstrates very poor oral control of bolus with early spill of all consistencies. Flash penetration with all consistencies. Silent aspiration with thin liquid. Large amount of residual within the valleculae and piriform sinuses with very limited clearance upon secondary swallowing. No evidence of esophageal obstruction. The esophagus below the level of the hypopharynx was not evalu ated. Please see separate detailed report from speech pathology.
[2019-12-31] MEDS ORDERED: PROPOFOL 200 MG/20 ML VIAL ONE (15:32)
[2019-12-31] MEDS: Sodium Chloride 0.9% 1,000 ML IV SCH (15:36)
[2019-12-31] MEDS: HumaLOG 300 UNITS/3 ML VIAL SC PRN ×2 (16:11→21:44)
[2020-01-01] MEDS: Sodium Chloride 0.9% 1,000 ML IV SCH ×2 (03:12→13:10)
[2020-01-01 05:02] LABS: Band 3 % (5-11); Hemoglobin 8.2 g/dL (12.0-16.0); Lymphocytes 18 % (21-51); MDiff Complete? YES; Mean Corpuscular HGB CONC 30.7 g/dL (32.0-36.0); Mean Platelet Volume 9.5 fL (7.4-10.4); Metamyelocyte 1 % (0-0); Monocytes 5 % (0-10); Myelocyte 2 % (0-0); Neutrophil 71 % (42-75); Platelet Count 279 thou/uL (130-400); RBC Distribution Width 13.6 % (11.5-14.5); Red Blood Cell (RBC) Count 2.64 mill/uL (4.20-5.40); White Blood Cell (WBC) Count 12.2 thou/uL (4.8-10.8)
[2020-01-01 05:08] LABS: Anion Gap 12 mmol/L (10-20); BUN (Urea Nitrogen) 25 mg/dL (9.8-20.1); Calc. Creatinine Clearance 88 mL/min (70-130); Carbon Dioxide 27 mmol/L (23-31); Chloride 108 mmol/L (98-107); Estimated GFR-MDRD 50; Glucose 191 mg/dL (80-115); Potassium 4.2 mmol/L (3.5-5.1); Sodium 143 mmol/L (136-145)
[2020-01-01] MEDS: Lisinopril 20 MG TAB PO SCH (08:56)
[2020-01-01] MEDS: Cefdinir 300 MG CAP PO SCH ×2 (08:56→20:55)
[2020-01-01] MEDS: cloNIDine 0.2 MG TAB PO SCH ×3 (08:57→20:54)
[2020-01-01] MEDS: Saccharomyces boulardii 250 MG CAP PO SCH (08:57)
[2020-01-01] MEDS: Docusate 100 MG CAP PO SCH (08:57)
[2020-01-01] MEDS: Amlodipine 10 MG TAB PO SCH (08:57)
[2020-01-01] MEDS: Nystatin 500,000 UNITS/5 ML UDCUP SSW SCH ×4 (08:58→20:56)
[2020-01-01] MEDS: hydrALAZINE 25 MG TAB PO SCH ×3 (08:58→20:55)
[2020-01-01] MEDS: predniSONE 20 MG TAB PO SCH (08:59)
[2020-01-01] MEDS: Pantoprazole 40 MG VIAL IVP SCH ×2 (08:59→20:56)
[2020-01-01] MEDS: NPH, Human Insulin Isophane 300 UNIT/3 ML VIAL SC SCH ×2 (08:59→17:10)
--- NOTE | 2020-01-01 10:25 | PRG ---
DATE OF SERVICE: 01/01/2020 SUBJECTIVE: This morning, she is awake, alert, and responsive. She is better. OBJECTIVE: VITAL SIGNS: Pulse 84, blood pressure 161/67, sats are 98% on 3 L, temperature 98. GENERAL: Awake. CHEST: Decreased breath sounds. No wheezing. CARDIAC: Normal S1, S2. No gallops. ABDOMEN: Soft. LABORATORY DATA: White count 12,000, H and H 8 and 26. Lytes are normal. She had a modified speech study done which was consistent with aspiration. IMPRESSION AND PLAN: 1. Cerebrovascular accident. 2. Morbid obesity. 3. Severe deconditioning. 4. Ongoing dysphagia. Family to decide about a PEG versus comfort care. Job ID: [id number]
[2020-01-01] MEDS: HumaLOG 300 UNITS/3 ML VIAL SC PRN ×3 (13:11→20:55)
--- NOTE | 2020-01-01 13:40 | PDOC.PALCO ---
Palliative Care Consult - Consult Details Requesting Physician: Mandi Menendez and Donald Reason for Consult: goals of care, family support, complex decision-making - Pertinent HPI 64 year old female who resides at a halfway facility secondary to inability to independently perform ALD's post CVA. Patient has two children and her son has deferred decisions to his sister Joseline. Patient was taken via EMS to [facility] for management of cellulitis to right lower extremity, and experienced altered mental status and required mechanical intubation to sustain safe airway. Secondary to need for higher level of care was transferred to [facility] CCU. Subsequently extubated and Dobhoff was placed. Dobhoff unintentionally removed. - Social History Smoking Status: Former smoker Smoking: quit greater than 1 year Alcohol Use: none Drug Use History: none Living Situation: halfway resident - Medications MAR Reviewed: Yes - Allergies Allergies/Adverse Reactions: Allergies Allergy/AdvReac Type Severity Reaction Status Date / Time codeine Allergy Verified 12/20/19 17:31 - Subjective Awake, pleasant and able to answer yes/no questions. Not able to recall her daughters name or that her daughter has three children. Poor memory recall. Unable to determine orientation beyond self. Poor Historian for ROS secondary to confusion. - ROS Constitutional: weakness Eyes: other (Denies visual changes) ENT: alteration in dentition, other (Denies throat irritation, congestion) Respiratory: other (Denies cough) Cardiology: other (Denies chest pain or palpitations) Gastrointestinal: other (denies vomiting or nausea) Genitourinary: other Neurological: numbness - Objective Vital Signs: Vital Signs - Most Recent Temp Pulse Resp BP Pulse Ox 97.8 F 84 16 161/76 H 95 01/01/20 11:10 01/01/20 11:03 01/01/20 11:03 01/01/20 09:59 01/01/20 11:03 Palliative Performance Scale: 30 - Physical Exam Constitutional: confusion, ill appearing HEENT: moist MMs, sclera anicteric, poor dentition Respiratory: unlabored breathing, diminished lung sound Cardiovascular: RRR Gastrointestinal: soft, non-tender Genitourinary: magana catheter Musculoskeletal: edema present, diffuse muscle atrophy Deviation from normal: right sided weakness Skin: fragile (Please refer to wound photo, erythema to right lower extremity) Deviation from normal: Oriented to self - Problem List (1) Dysphagia Code(s): R13.10 - DYSPHAGIA, UNSPECIFIED Current Visit: Yes Status: Acute (2) Declining functional status Code(s): R53.81 - OTHER MALAISE Current Visit: Yes Status: Acute (3) Palliative care encounter Code(s): Z51.5 - ENCOUNTER FOR PALLIATIVE CARE Current Visit: Yes Status: Acute (4) Acute respiratory failure with hypoxia Code(s): J96.01 - ACUTE RESPIRATORY FAILURE WITH HYPOXIA Current Visit: Yes Status: Acute (5) Cellulitis Code(s): L03.90 - CELLULITIS, UNSPECIFIED Current Visit: Yes Status: Acute (6) Diabetes mellitus Code(s): E11.9 - TYPE 2 DIABETES MELLITUS WITHOUT COMPLICATIONS Current Visit : Yes Status: Acute (7) History of CVA (cerebrovascular accident) Code(s): Z86.73 - PRSNL HX OF TIA (TIA), AND CEREB INFRC W/O RESID DEFICITS Current Visit: Yes Status: Acute (8) Hypertension Code(s): I10 - ESSENTIAL (PRIMARY) HYPERTENSION Current Visit: Yes Status: Acute - Plan/Recommendations Plan: Communicated with patient, she has poor memory recall. Daughter relayed that her mother was on a mechanical soft diet at the halfway prior to presentation to [facility], and would also eat "what ever she desired". Discussed aspiration risk related to dysphagia. Discussed diet with risk, she confirmed that her mother would not want to have what she can eat limited. Communicated with Speech and Dr Bennett. Speech confirmed aspiration risk with suggested diet options. Dr Dye communicated with patient daughter, further educating in relation to diet with risk and comfort feeds. Daughter would like to proceed with diet with risk, advancing diet safely allowing for optimal baseline for patient. States he mother would not desire another placement of NG at this time or PEG. Emotional support and therapeutic listening. [75] minutes spent on this encounter with >50% of the time in counseling and coordination of care. Thank you for this very appropriate consult.
[2020-01-01] MEDS: hydrALAZINE 20 MG/ML VIAL SLOW IVP PRN (18:20)
--- NOTE | 2020-01-01 18:28 | PDOC.HOSPP ---
- Subjective Encounter Date: 01/01/20 Subjective: Participating with PT. No new complains. - Objective Vital Signs & Weight: Vital Signs (12 hours) Temp Pulse Pulse Pulse Resp BP BP 01/01/20 18:20 110 H 185/89 H 01/01/20 15:43 186/99 H 01/01/20 15:42 112 H 186/99 H 01/01/20 15:00 99.3 F 01/01/20 14:41 83 15 01/01/20 11:10 97.8 F 01/01/20 11:03 84 16 01/01/20 10:46 92 94 161/76 H 01/01/20 09:59 90 89 161/76 H 01/01/20 08:58 84 168/76 H 01/01/20 08:57 84 168/76 H 01/01/20 08:56 168/76 H 01/01/20 07:58 01/01/20 07:52 84 22 H 01/01/20 07:51 01/01/20 07:18 98.6 F BP Pulse Ox Pulse Ox Pulse Ox 01/01/20 18:20 01/01/20 15:43 01/01/20 15:42 01/01/20 15:00 01/01/20 14:41 95 01/01/20 11:10 01/01/20 11:03 95 01/01/20 10:46 165/78 H 95 96 01/01/20 09:59 177/75 H 01/01/20 08:58 01/01/20 08:57 01/01/20 08:56 01/01/20 07:58 98 01/01/20 07:52 98 01/01/20 07:51 98 01/01/20 07:18 Weight Admit Weight 243 lb Weight 231 lb 3 oz Most Recent Monitor Data Heart Rate from ECG 98 NIBP 173/71 NIBP BP-Mean 105 Respiration from ECG 27 SpO2 94 I&O: 12/31/19 01/01/20 01/02/20 06:59 06:59 06:59 Intake Total 1632 1853 Output Total 6540 3529 Balance -2393 -22 Result Diagrams: 01/01/20 04:20 01/01/20 04:29 Additional Labs: Accuchecks 01/01/20 01/01/20 01/01/20 16:54 12:25 08:13 POC Glucose 415 H 312 H 205 H 01/01/20 01/01/20 12/31/19 04:24 00:12 20:13 POC Glucose 191 H 251 H 275 H Hospitalist ROS - Medication Medications: Active Medications Generic Name Dose Route Start Last Admin Trade Name Freq PRN Reason Stop Dose Admin Albuterol/Ipratropium 3 ml 12/27/19 10:30 01/01/20 14:41 Duoneb EZPAP 3 ml [id number] NADINE Administration Amlodipine Besylate 10 mg 12/25/19 09:00 01/01/20 08:57 Norvasc PO 10 mg DAILY NADINE Administration Cefdinir 300 mg 12/30/19 21:00 01/01/20 08:56 Omnicef PO 300 mg BID NADINE Administration Clonidine 0.2 mg 12/29/19 21:00 01/01/20 15:43 Catapres PO 0.2 mg TID NADINE Administration Docusate Sodium 100 mg 12/25/19 09:00 01/01/20 08:57 Colace PO 100 mg DAILY NADINE Administration Hydralazine HCl 10 mg 12/25/19 09:12 01/01/20 18:20 Apresoline SLOW IVP 10 mg Q4H PRN Administration SBP Greater Than 180 Hydralazine HCl 25 mg 12/29/19 21:00 01/01/20 15:42 Apresoline PO 25 mg TID NADINE Administration Potassium Chloride 40 meq/ 100 mls @ 50 mls/hr 12/23/19 17:05 12/27/19 05:13 Device IVPB 100 mls ASDIR PRN Administration FOR SERUM K+ 2.5 - 3.5 Sodium Chloride 1,000 mls @ 75 mls/hr 12/31/19 11:15 01/01/20 13:10 Normal Saline 0.9% IV 1,000 mls .[id number] NADINE Administration Insulin Human Lispro 0 units 12/25/19 01:04 01/01/20 17:06 Humalog SC 13 unit .AGGRESSIVE SLIDING PRN Administration AGGRESSIVE SLIDING SCALE Protocol Insulin Human NPH 25 unit 12/27/19 21:00 01/01/20 17:10 Humulin N SC 25 unit BID NADINE Administration Lisinopril 40 mg 12/25/19 09:00 01/01/20 08:56 Zestril PO 40 mg DAILY NADINE Administration Nystatin 500,000 units 12/29/19 13:00 01/01/20 15:43 Mycostatin SSW 500,000 units QID NADINE Administration Pantoprazole Sodium 40 mg 12/29/19 21:00 01/01/20 08:59 Protonix IVP 40 mg Q12HR NADINE Administration Prednisone 40 mg 12/31/19 08:00 01/01/20 08:59 Prednisone PO 40 mg QAM-WM NADINE Administration Saccharomyces Boulardii 250 mg 12/26/19 09:00 01/01/20 08:57 Florastor PO 250 mg DAILY NADINE Administration Sodium Chloride 10 ml 12/24/19 21:00 01/01/20 09:00 Flush - Normal Saline IVF 10 ml Q12HR NADINE Administration - Exam General Appearance: awake alert ENT: normocephalic atraumatic Neck: supple Heart: RRR, no murmur, no gallops, no rubs, normal peripheral pulses Respiratory: CTAB, no wheezes, no rales, no ronchi, normal chest expansion Gastrointestinal: soft Hosp A/P - Plan Severe Sepsis 2/2 to RLE Cellulitis Acute respiratory failure with hypoxia/hypercapnia due to retained secretions ? Aspiration Pneumonia - extubated 12/25 GI Bleed Hypertension DM2 Swallow dys - on tube feeds Hypernatremia - improving Dementia h/o CVA Mild persistent Asthma Depression Chronic Anticoagulation Morbid Obesity BMI 40.9 CKD 3 PLAN: Status post EGD showing erosive esophagitis with nonerosive gastritis and 2 duodenal ulcers with no active bleeding. Biopsies for bacterial myofibrillar has been obtained. Protonix has been initiated. The patient is high risk for aspiration per modified barium swallow study. The patient does not wish for a PEG tube and has decided to pursue diet with risk. Since the patient is confused intermittently, I contacted her daughter who confirmed patient's wishes. We will pursue modified diabetic diet as tolerated. Continue antibiotics for aspiration pneumonia. The patient can likely be transitioned to the medical floor.
[2020-01-02] MEDS: Sodium Chloride 0.9% 1,000 ML IV SCH (04:19)
[2020-01-02] MEDS: HumaLOG 300 UNITS/3 ML VIAL SC PRN (04:20)
[2020-01-02] MEDS: hydrALAZINE 20 MG/ML VIAL SLOW IVP PRN (04:41)
[2020-01-02 05:04] LABS: Anion Gap 12 mmol/L (10-20); BUN (Urea Nitrogen) 22 mg/dL (9.8-20.1); Calc. Creatinine Clearance 97 mL/min (70-130); Calcium 8.1 mg/dL (7.8-10.44); Carbon Dioxide 25 mmol/L (23-31); Chloride 109 mmol/L (98-107); Estimated GFR-MDRD 56; Glucose 234 mg/dL (80-115); Potassium 3.6 mmol/L (3.5-5.1); Sodium 142 mmol/L (136-145)
[2020-01-02 06:01] LABS: Band 5 % (5-11); Eosinophils 1 % (0-10); Hemoglobin 8.5 g/dL (12.0-16.0); Lymphocytes 30 % (21-51); MDiff Complete? YES; Mean Corpuscular HGB CONC 31.2 g/dL (32.0-36.0); Mean Corpuscular Hemoglobin 31.2 pg (27.0-31.0); Mean Platelet Volume 9.4 fL (7.4-10.4); Monocytes 6 % (0-10); Myelocyte 2 % (0-0); Neutrophil 56 % (42-75); Platelet Count 363 thou/uL (130-400); RBC Distribution Width 13.9 % (11.5-14.5); Red Blood Cell (RBC) Count 2.73 mill/uL (4.20-5.40); White Blood Cell (WBC) Count 10.5 thou/uL (4.8-10.8)
[2020-01-02] MEDS ORDERED: predniSONE 20 MG TAB PO SCH (08:00)
[2020-01-02] MEDS: Amlodipine 10 MG TAB PO SCH (08:48)
[2020-01-02] MEDS: Cefdinir 300 MG CAP PO SCH (08:48)
[2020-01-02] MEDS: Saccharomyces boulardii 250 MG CAP PO SCH (08:48)
[2020-01-02] MEDS: Docusate 100 MG CAP PO SCH (08:49)
[2020-01-02] MEDS: cloNIDine 0.2 MG TAB PO SCH ×2 (08:49→15:53)
[2020-01-02] MEDS: Lisinopril 20 MG TAB PO SCH (08:49)
[2020-01-02] MEDS: hydrALAZINE 25 MG TAB PO SCH ×2 (08:49→15:54)
[2020-01-02] MEDS: NPH, Human Insulin Isophane 300 UNIT/3 ML VIAL SC SCH (08:50)
[2020-01-02] MEDS: Nystatin 500,000 UNITS/5 ML UDCUP SSW SCH ×3 (08:50→15:53)
[2020-01-02] MEDS: Pantoprazole 40 MG VIAL IVP SCH (08:50)
--- NOTE | 2020-01-02 08:57 | PRG ---
DATE OF SERVICE: 01/02/2020 SUBJECTIVE: This morning, she is awake, alert, responsive. She is better. She had a speech evaluation yesterday, which showed that the patient as per their recommendation. OBJECTIVE: VITAL SIGNS: Temperature 99, blood pressure is 102/91, pulse 94, respiratory rate 18. CHEST: No wheezing or crackles. CARDIAC: Normal S1, S2. No gallops. ABDOMEN: No masses. LABORATORY DATA: Otherwise unremarkable. ASSESSMENT: 1. Cerebrovascular accident. 2. Dysphagia. 3. Aspiration. 4. Morbid obesity. 5. Severe deconditioning. 6. Respiratory failure. PLAN: In the process of trying to get back to the retirement Her long-term prognosis is grave. We will follow. Job ID: [id number]
[2020-01-02] MEDS: predniSONE 20 MG TAB PO SCH (09:06)
--- NOTE | 2020-01-02 10:34 | PDOC.PALPN ---
Palliative Progress Note - Subjective Tearful, daughter just left from bedside. Ms Bird is limited in speech to one- two words and appears to have poor memory recall. Not a reliable source for ROS - Objective Vital Signs: Vital Signs - Most Recent Temp Pulse Resp BP Pulse Ox 99.0 F 103 H 16 205/105 H 94 L 01/02/20 07:15 01/02/20 08:49 01/02/20 08:17 01/02/20 08:49 01/02/20 02:10 - Physical Exam Constitutional: confusion, ill appearing HEENT: moist MMs, poor dentition Respiratory: unlabored breathing, diminished lung sound Gastrointestinal: soft, non-tender, positive bowel sounds Genitourinary: magana catheter Musculoskeletal: pulses present, edema present, diffuse muscle atrophy Neurology: hemiplegia Skin: cap refill <2 seconds, fragile Deviation from normal: Alert and oriented to self. Tearful - Assessment (1) Dysphagia Code(s): R13.10 - DYSPHAGIA, UNSPECIFIED Current Visit: Yes Status: Acute (2) Declining functional status Code(s): R53.81 - OTHER MALAISE Current Visit: Yes Status: Acute (3) Palliative care encounter Code(s): Z51.5 - ENCOUNTER FOR PALLIATIVE CARE Current Visit: Yes Status: Acute (4) Acute respiratory failure with hypoxia Code(s): J96.01 - ACUTE RESPIRATORY FAILURE WITH HYPOXIA Current Visit: Yes Status: Acute (5) Cellulitis Code(s): L03.90 - CELLULITIS, UNSPECIFIED Current Visit: Yes Status: Acute (6) Diabetes mellitus Code(s): E11.9 - TYPE 2 DIABETES MELLITUS WITHOUT COMPLICATIONS Current Visit : Yes Status: Acute (7) History of CVA (cerebrovascular accident) Code(s): Z86.73 - PRSNL HX OF TIA (TIA), AND CEREB INFRC W/O RESID DEFICITS Current Visit: Yes Status: Acute (8) Hypertension Code(s): I10 - ESSENTIAL (PRIMARY) HYPERTENSION Current Visit: Yes Status: Acute - Plan Plan: Daughter was at bedside and met with Palliative Care RN Follow up visit with patient. Concern is patient full medical capacity to make decisions. May revisit discharge plan with overlay of hospice in the long term setting secondary to decision for diet with risk and no PEG/NG and high risk for recurrent infection. Will also revisit DNAR and OOHDNAR. Emotional support and therapeutic listening with patient. Communicated with spiritual care for further emotional and spiritual support. Please also refer to Palliative Care notes in note section. [35] minutes spent on this encounter with >50% of the time in counseling and coordination of care. - ROS Constitutional: alert, weakness ENT: other (Denies difficulity, documented dysphagia) Respiratory: other (Denies cough or consestion. However appears to have bronch secretions) Gastrointestinal: other (Denies nausea, vomiting)
[2020-01-02 12:00] VITALS: BMI 38.9
[2020-01-02 15:26] VITALS: TEMP 97.5
[2020-01-02 15:54] VITALS: BP 179/102
--- NOTE | 2020-01-03 10:01 | DIS ---
DATE OF ADMISSION: 12/23/2019 DATE OF DISCHARGE: 01/02/2020 DISCHARGE DIAGNOSES: 1. Severe sepsis secondary to right lower extremity cellulitis. 2. Acute respiratory failure with hypoxia and hypercarbia. 3. Aspiration pneumonia. 4. Gastrointestinal bleeding. 5. Duodenal ulcer. 6. Erosive esophagitis. 7. Hypertension. 8. Diabetes mellitus, type 2. 9. Dysphagia. 10. Hypernatremia. 11. Dementia. 12. Asthma. 13. Depression. 14. Morbid obesity. DISCHARGE MEDICATIONS: 1. Amlodipine 10 mg orally daily. 2. Clonidine 0.2 mg orally 3 times a day. 3. Colace 100 mg orally daily as needed for constipation. 4. Lisinopril 20 mg orally daily. 5. Atorvastatin 40 mg orally nightly. 6. Omnicef 300 mg orally twice daily. 7. Donepezil 10 mg orally nightly. 8. Ferrous sulfate 325 mg orally daily. 9. Lasix 40 mg orally daily. 10. Glimepiride 2 mg orally twice daily. 11. Insulin glargine 26 units subcutaneously at bedtime. 12. Metformin 500 mg orally twice daily. 13. Potassium chloride 10 mEq orally daily. 14. Tramadol 50 mg orally twice daily as needed for pain. 15. Trazodone 75 mg orally nightly. 16. Warfarin 5 mg orally daily on Tuesday, Tuesday, Tuesday, and and 2 mg on Tuesday, Tuesday, and Tuesday. 17. Protonix 40 mg orally twice daily. HISTORY OF PRESENT ILLNESS AND HOSPITAL COURSE: The patient is a 64-year-old female, [facility] resident, with history of CVA with residual deficits affecting both cognition, speech, swallowing, and ambulation. Her family stated that she has not been in contact with them since the COVID-[address] The patient was transferred to the hospital from [facility] due to cellulitis of her right lower extremity. A COVID test was performed at that time, which was reported to be negative. The patient's symptoms progressed despite antibiotics and were now including respiratory distress. She was placed on BiPAP and was subsequently intubated. This portion of management was done at the [facility]. The patient was subsequently transferred to our hospital for further management. The patient was placed on broad-spectrum IV antibiotics and corticosteroids in addition to nebulizer treatments and was managed in the intensive care unit under the care of Pulmonology Service. Her condition gradually improved, and she was successfully extubated. The patient was not able to swallow safely, and feeding was continued using an NG tube. X-rays revealed infiltrates suggestive of pneumonia, likely due to aspiration. The patient's condition continued to gradually improve including her mental status. Her post extubation period was complicated by an episode of melena. GI was consulted, and EGD was performed showing erosive esophagitis in the lower esophageal portion in addition to duodenal ulcers that were nonbleeding. NG tube was discontinued, and the patient was placed on IV Protonix, which subsequently was converted to oral form. The patient was subsequently evaluated by Speech Therapy and was deemed to be high risk for aspiration. After discussion with Palliative Care Team, the patient and her family decided to pursue diet with risk of aspiration. Code status was also discussed, and the patient wants to remain full code at this time. The patient does have a history of DVT and PE and was on warfarin prior to presentation. Warfarin was held during her hospital stay due to GI bleeding. We recommend to hold warfarin for 1 week before restarting it. Job ID: [id number]
[2020-01-03 18:38] LABS: H. pylori IgA ABS Less than 9.0 units (0.0-8.9); H. pylori IgM ABS Less than 9.0 units (0.0-8.9)
== END 2020-01-02 16:30 | disposition home or self-care (01) | DRG 871 ==
LOC: CCU 15:59 → IMCU/EMU 12-28 22:00
PROVIDERS: ADMIT Student in an Organized Health Care Education/Training Program; ATTEND Internal Medicine
PROC: 0W9B3ZZ Drainage of Left Pleural Cavity, Percutaneous Approach (ICD-10-PCS; principal; 2019-12-23)
PROC: 05H633Z Insertion of Infusion Device into Left Subclavian Vein, Percutaneous Approach (ICD-10-PCS; 2019-12-23)
PROC: 0BCB8ZZ Extirpation of Matter from Left Lower Lobe Bronchus, Via Natural or Artificial Opening Endoscopic (ICD-10-PCS; 2019-12-23)
PROC: 0DJ08ZZ Inspection of Upper Intestinal Tract, Via Natural or Artificial Opening Endoscopic (ICD-10-PCS; 2019-12-23)
PROC: 0BH17EZ Insertion of Endotracheal Airway into Trachea, Via Natural or Artificial Opening (ICD-10-PCS; 2019-12-23)
PROC: 5A1945Z Respiratory Ventilation, 24-96 Consecutive Hours (ICD-10-PCS; 2019-12-23)
DX: A41.9 Sepsis, unspecified organism (principal); J69.0 Pneumonitis due to inhalation of food and vomit; J96.21 Acute and chronic respiratory failure with hypoxia; J96.22 Acute and chronic respiratory failure with hypercapnia; I63.9 Cerebral infarction, unspecified; K92.2 Gastrointestinal hemorrhage, unspecified; E87.0 Hyperosmolality and hypernatremia; L03.115 Cellulitis of right lower limb; K22.10 Ulcer of esophagus without bleeding; J44.1 Chronic obstructive pulmonary disease with (acute) exacerbation; J90 Pleural effusion, not elsewhere classified; Z68.41 Body mass index [BMI] 40.0-44.9, adult; D62 Acute posthemorrhagic anemia; G81.94 Hemiplegia, unspecified affecting left nondominant side; Z20.828 Contact with and (suspected) exposure to other viral communicable diseases; R65.20 Severe sepsis without septic shock; R13.10 Dysphagia, unspecified; F03.90 Unspecified dementia, unspecified severity, without behavioral disturbance, psychotic disturbance, mood disturbance, and anxiety; F32.9 Major depressive disorder, single episode, unspecified; E66.01 Morbid (severe) obesity due to excess calories; N18.3 Chronic kidney disease, stage 3 (moderate); E11.22 Type 2 diabetes mellitus with diabetic chronic kidney disease; I12.9 Hypertensive chronic kidney disease with stage 1 through stage 4 chronic kidney disease, or unspecified chronic kidney disease; J45.30 Mild persistent asthma, uncomplicated; E78.5 Hyperlipidemia, unspecified; R53.81 Other malaise; I89.0 Lymphedema, not elsewhere classified; Z79.4 Long term (current) use of insulin; I69.319 Unspecified symptoms and signs involving cognitive functions following cerebral infarction; I69.328 Other speech and language deficits following cerebral infarction; Z86.718 Personal history of other venous thrombosis and embolism; Z79.01 Long term (current) use of anticoagulants; Z86.711 Personal history of pulmonary embolism; Z87.891 Personal history of nicotine dependence
CPT/HCPCS: 36415; 36416; 71045; 71250; 74018; 74230; 80048; 80053; 80202; 82274; 82805; 83735; 83880; 84100; 84145; 84443; 85007; 85025; 85027; 85610; 86850; 86900; 86901; 87070; 87205; 93306; 94002; 94003; 94640; C9113; J0360; J0692; J1650; J1815; J2060; J2370; J2704; J2920; J3010; J3370; J3480; J3490; J7050; J7512; J7608; J7620; S0028

== ENCOUNTER 2020-04-02 14:42 | Inpatient (IN) | payer MEDICARE, MEDICAID, OTHER ==
[~2020-04-02 14:42] MED LIST: Iopamidol-370 76% 500 ML 1 ML ONE
[2020-04-02] MEDS ORDERED: Vancomycin 1.5 GRAM/300 ML BAG 1.5 GM in Premix Bag 1 BAG IVPB SCH (15:30)
[2020-04-02] MEDS ORDERED: Fentanyl 100 MCG/2 ML VIAL ONE ×2 (16:46→17:54)
[2020-04-02] MEDS ORDERED: Clindamycin/D5W 900 mg/50 ml Premix Bag ONE (16:46)
[2020-04-02] MEDS ORDERED: Cefepime 2 GM VIAL ONE (16:46)
[2020-04-02 17:02] LABS: #Eosinphils 0.2 thou/uL (0.0-0.7); #Lymphocytes 3.8 thou/uL (1.20-3.40); #Monocytes 0.8 thou/uL (0.11-0.59); %Basophils 0.4 % (0.0-1.0); %Eosinophils 1.4 % (0.0-10.0); %Lymphocytes 31.9 % (21.0-51.0); %Neutrophils 59.3 % (42.0-75.0); Hemoglobin 10.5 g/dL (12.0-16.0); Mean Corpuscular HGB CONC 31.5 g/dL (32.0-36.0); Mean Corpuscular Hemoglobin 29.5 pg (27.0-31.0); Mean Corpuscular Volume 93.8 fL (78.0-98.0); Mean Platelet Volume 7.9 fL (7.4-10.4); Platelet Count 444 thou/uL (130-400); RBC Distribution Width 14.4 % (11.5-14.5); Red Blood Cell (RBC) Count 3.57 mill/uL (4.20-5.40); White Blood Cell (WBC) Count 11.8 thou/uL (4.8-10.8)
[2020-04-02 17:08] LABS: INR-International Normal Ratio 0.8; PTT 24.7 sec (22.9-36.1); Prothrombin Time 11.3 sec (12.0-14.7)
--- NOTE | 2020-04-02 17:10 | ULT ---
EXAM: Right lower extremity venous ultrasound HISTORY: Right lower extremity pain and edema COMPARISON: 12/23/2019 TECHNIQUE: Multiplanar grayscale and color Doppler images were obtained in a right lower extremity ve nous ultrasound. Spectral analysis of the Doppler waveforms were performed. FINDINGS: The common femoral vein, profunda femoral vein, superficial femoral vein, and popliteal vei n are normal in appearance without visible thrombus. These vessels demonstrate normal compression, flow, and augmentation. The posterior tibial vein and greater saphenous vein are patent without evidence of thrombus. IMPRESSION: No evidence of DVT.
[2020-04-02 17:23] LABS: D-Dimer Test 6.57 *mcg/mL (0.27-0.43)
[2020-04-02 17:25] LABS: ALT (SGPT) 15 U/L (8-55); AST (SGOT) 23 U/L (5-34); Albumin 3.4 g/dL (3.4-4.8); Alkaline Phosphatase 114 U/L (40-110); Anion Gap 16 mmol/L (10-20); BUN (Urea Nitrogen) 13 mg/dL (9.8-20.1); Bilirubin, Total 0.2 mg/dL (0.2-1.2); CK (CPK) 25 U/L (29-168); Calc. Creatinine Clearance 0 mL/min (70-130); Calcium 8.9 mg/dL (7.8-10.44); Carbon Dioxide 30 mmol/L (23-31); Chloride 99 mmol/L (98-107); Estimated GFR-MDRD 43; Glucose 163 mg/dL (80-115); Potassium 3.8 mmol/L (3.5-5.1); Protein, Total 6.4 g/dL (6.0-8.3); Sodium 141 mmol/L (136-145)
[2020-04-02] MEDS ORDERED: Enoxaparin Sodium 100 MG/ML SYRINGE ONE (17:33)
--- NOTE | 2020-04-02 17:49 | RAD ---
EXAM: Single view of the chest HISTORY: Right lower extremity swelling and dyspnea COMPARISON: 02/10/2020; CT chest 12/25/2019 FINDINGS: Single view of the chest shows a normal sized cardiomediastinal silhouette. There is stable widening of the paratracheal stripe on the right. Atherosclerotic calcifications are seen in the aorta. There is no evidence of consolidation, mass, or pleural effusion. No acute osseous abnormalit y. IMPRESSION: No evidence of acute cardiopulmonary disease
[2020-04-02 17:52] LABS: Bacteria/HPF None Seen HPF (None Seen); Bilirubin Negative (Negative); Blood, Urine 2+ (Negative); Clarity Clear (Clear); Glucose, Urine (Dipstick) Normal (Negative); Ketone, Urine Negative (Negative); Leukocyte Negative Leu/uL (Negative); Nitrite Negative (Negative); Protein, Urine (Dipstick) 20 mg/dL (Neg-Trace); RBC/HPF 0-3 HPF (0-3); Specific Gravity, Urine 1.008 (1.002-1.036); Squamous Epithelial 0-3 HPF (0-3); Urobilinogen Normal mg/dL (Less than 2); WBC/HPF 0-3 HPF (0-3); pH, Urine 7.5 (5.0-9.0)
[2020-04-02] MEDS ORDERED: Famotidine/PF 20 mg/2ml Vial ONE (18:05)
[2020-04-02] MEDS ORDERED: diphenhydrAMINE 50 MG/ML VIAL ONE (18:05)
[2020-04-02] MEDS ORDERED: methylPREDNISolone Sod Succ/PF 125 MG/2 ML VIAL ONE (18:05)
[2020-04-02] MEDS ORDERED: Acetaminophen 325 MG TAB PO PRN (21:32)
[2020-04-02] MEDS ORDERED: Acetaminophen 650 MG Suppository PR PRN (21:32)
[2020-04-02] MEDS ORDERED: HumaLOG 300 UNITS/3 ML VIAL SC PRN (21:34)
[2020-04-02] MEDS ORDERED: Dextrose 50% Abboject 50 ML SYRINGE SLOW IVP PRN (21:34)
[2020-04-02] MEDS ORDERED: Dextrose 5% in Water 1,000 ML IV PRN (21:34)
--- NOTE | 2020-04-02 21:47 | PDOC.HHP ---
Hospitalist HPI - History of Present Illness Leg swelling and pain History of Present Illness: Patient brought in from [facility] due to complaints of right lower extremity pain and swelling. She has edema at baseline but developed erythema and discomfort in the right lower extremity today. She is bedbound due to history of a stroke with right-sided deficit and is AO x1 at baseline. Unable to obtain much history from the patient due to her mental status. There was apparently difficulty obtaining IV access by EMS. ED COURSE: In the emergency department the patient underwent an EKG that showed sinus tachycardia with a heart rate of 109. She was said to appear tachypneic on arrival. Due to difficulty obtaining IV access a central line was placed in the ED. She was started on IV antibiotics (cefepime and vancomycin). Laboratory studies had shown her INR was subtherapeutic and therefore she was given a shot of Lovenox. D-dimer had been ordered and elevated therefore patient underwent a CT angiogram was given full-strength Lovenox to cover for possible PE. She was premedicated for possible iodine contrast and given Benadryl, Solu-Medrol and Pepcid. She was admitted for sepsis secondary to cellulitis. She underwent a venous Doppler in the ED that was negative for DVT. She received IV fluids. PAST MEDICAL HISTORY: Type 2 diabetes mellitus, on insulin Iron deficiency anemia Hyperlipidemia Hypertension History of ischemic CVA with residual right-sided deficits PAST SURGICAL HISTORY: None SOCIAL HISTORY: Patient is bedbound due to history of CVA. She lives in a [facility]ci. No history of tobacco use alcohol consumption or illicit drug use. FAMILY HISTORY: Noncontributory ALLERGIES: Codeine sulfate CURRENT MEDICATIONS: Amlodipine 10 mg p.o. daily Clonidine 0.2 mg p.o. 3 times daily Colace 100 mg p.o. daily Ferrous sulfate 325 mg p.o. daily Multivitamin 1 tablet p.o. daily Pravastatin 10 mg p.o. daily at bedtime Metformin 500 mg p.o. twice daily Tramadol 50 mg 2 tablets p.o. at bedtime Vitamin D3 2000 units p.o. daily Warfarin 4 mg once daily Tuesday, 6 mg on Tuesday Amaryl 2 mg twice daily before meals Furosemide 40 mg p.o. daily Lisinopril 40 mg p.o. daily Potassium chloride 10 mEq p.o. daily Exelon 3 mg twice daily Hydralazine 25 mg p.o. 3 times daily Albuterol 1 to 2 puffs every 4-6 hours as needed for cough or wheeze Prednisone 40 mg p.o. daily Hospitalist ROS - Review of Systems ROS unobtainable: due to mental status Musculoskeletal: reports: leg pain Hospitalist History - Past Surgical History Past Surgical History: reports: no pertinent history - Social History Alcohol: reports: None Drugs: reports: none - Exam General Appearance: NAD, awake alert General - other findings: Temp 99.4, HR 115, RR 20, O2 sat 91% RA, BP 173/82 Eye: PERRL, anicteric sclera ENT: normocephalic atraumatic Neck: supple, no lymphadenopathy Heart: RRR Respiratory: CTAB, normal chest expansion, no tachypnea Gastrointestinal: soft, non-tender, non-distended, normal bowel sounds, no guarding, no rigidity Extremities - other findings: LE edema right leg/foot worse than left, slight erythema of RLE, Neurological - other findings: Right sided deficit due to hx of stroke Psychiatric: normal affect, oriented to person Hospitalist Results - Labs Result Diagrams: 04/02/20 16:41 04/02/20 16:41 Lab results: WBC 11.8 thou/uL (4.8-10.8) H 04/02/20 16:41 Hgb 10.5 g/dL (12.0-16.0) L 04/02/20 16:41 Hct 33.5 % (36.0-47.0) L 04/02/20 16:41 MCV 93.8 fL (78.0-98.0) 04/02/20 16:41 Plt Count 444 thou/uL (130-400) H 04/02/20 16:41 Neutrophils % 59.3 % (42.0-75.0) 04/02/20 16:41 Sodium 141 mmol/L (136-145) 04/02/20 16:41 Potassium 3.8 mmol/L (3.5-5.1) 04/02/20 16:41 Chloride 99 mmol/L (98-107) 04/02/20 16:41 Carbon Dioxide 30 mmol/L (23-31) 04/02/20 16:41 BUN 13 mg/dL (9.8-20.1) 04/02/20 16:41 Creatinine 1.27 mg/dL (0.6-1.1) H 04/02/20 16:41 Glucose 163 mg/dL (80-115) H 04/02/20 16:41 Lactic Acid 1.4 mmol/L (0.5-2.2) 04/02/20 18:02 Calcium 8.9 mg/dL (7.8-10.44) 04/02/20 16:41 Total Bilirubin 0.2 mg/dL (0.2-1.2) 04/02/20 16:41 AST 23 U/L (5-34) 04/02/20 16:41 ALT 15 U/L (8-55) 04/02/20 16:41 Alkaline Phosphatase 114 U/L (40-110) H 04/02/20 16:41 Creatine Kinase 25 U/L (29-168) L 04/02/20 16:41 Troponin I 0.025 ng/mL (< 0.028) 04/02/20 16:41 Serum Total Protein 6.4 g/dL (6.0-8.3) 04/02/20 16:41 Albumin 3.4 g/dL (3.4-4.8) 04/02/20 16:41 Urine Ketones Negative mg/dL (Negative) 04/02/20 17:36 Urine Blood 2+ (Negative) A 04/02/20 17:36 Urine Nitrite Negative (Negative) 04/02/20 17:36 Ur Leukocyte Esterase Negative Jerrell/uL (Negative) 04/02/20 17:36 Urine RBC 0-3 HPF (0-3) 04/02/20 17:36 Urine WBC 0-3 HPF (0-3) 04/02/20 17:36 Ur Squamous Epith Cells 0-3 HPF (0-3) 04/02/20 17:36 Urine Bacteria None Seen HPF (None Seen) 04/02/20 17:36 - Radiology Interpretation CT scan - chest Status: pending Hospitalist H&P A/P - Problem (1) Cellulitis Code(s): L03.90 - CELLULITIS, UNSPECIFIED Status: Chronic (2) Right leg swelling Code(s): M79.89 - OTHER SPECIFIED SOFT TISSUE DISORDERS Status: Acute (3) Elevated d-dimer Code(s): R79.89 - OTHER SPECIFIED ABNORMAL FINDINGS OF BLOOD CHEMISTRY Status : Acute (4) Chronic anticoagulation Code(s): Z79.01 - GIS SOFTWARE ENGINEER (CURRENT) USE OF ANTICOAGULANTS Status: Chronic (5) Hyperlipidemia Code(s): E78.5 - HYPERLIPIDEMIA, UNSPECIFIED Status: Chronic (6) Diabetes mellitus Code(s): E11.9 - TYPE 2 DIABETES MELLITUS WITHOUT COMPLICATIONS Status: Chronic (7) History of CVA (cerebrovascular accident) Code(s): Z86.73 - PRSNL HX OF TIA (TIA), AND CEREB INFRC W/O RESID DEFICITS Status: Chronic (8) Hypertension Code(s): I10 - ESSENTIAL (PRIMARY) HYPERTENSION Status: Chronic - Plan Plan: Continue IV antibiotics. Awaiting CTA results, given lovenox in ED. Monitor O2 sats. Monitor glucose. Sliding scale initiated. Monitor BP. Gentle hydration. Monitor renal function. Resume home medications as appropriate once verified. GI Prophylaxis.
[2020-04-02] MEDS: Sodium Chloride 0.9% 1,000 ML IV SCH (23:33)
[2020-04-03 05:00] LABS: Anion Gap 20 mmol/L (10-20); BUN (Urea Nitrogen) 15 mg/dL (9.8-20.1); Calc. Creatinine Clearance 69 mL/min (70-130); Calcium 8.2 mg/dL (7.8-10.44); Carbon Dioxide 21 mmol/L (23-31); Chloride 101 mmol/L (98-107); Estimated GFR-MDRD 42; Glucose 343 mg/dL (80-115); Potassium 4.5 mmol/L (3.5-5.1); Sodium 137 mmol/L (136-145)
[2020-04-03] MEDS: HumaLOG 300 UNITS/3 ML VIAL SC PRN ×3 (06:30→17:04)
[2020-04-03 07:12] LABS: #Lymphocytes 1.4 thou/uL (1.20-3.40); #Monocytes 0.3 thou/uL (0.11-0.59); #Neutrophils 5.7 thou/uL (1.40-6.50); %Basophils 0.5 % (0.0-1.0); %Eosinophils 0.3 % (0.0-10.0); %Lymphocytes 18.6 % (21.0-51.0); %Monocytes 4.5 % (0.0-10.0); %Neutrophils 76.1 % (42.0-75.0); Hemoglobin 10.9 g/dL (12.0-16.0); Mean Corpuscular HGB CONC 31.6 g/dL (32.0-36.0); Mean Corpuscular Hemoglobin 29.9 pg (27.0-31.0); Mean Corpuscular Volume 94.7 fL (78.0-98.0); Mean Platelet Volume 7.9 fL (7.4-10.4); Platelet Count 396 thou/uL (130-400); RBC Distribution Width 14.3 % (11.5-14.5); Red Blood Cell (RBC) Count 3.65 mill/uL (4.20-5.40); White Blood Cell (WBC) Count 7.5 thou/uL (4.8-10.8)
[2020-04-03] MEDS: Enoxaparin Sodium 100 MG/ML SYRINGE SC SCH ×2 (08:30→20:44)
[2020-04-03] MEDS ORDERED: Famotidine/PF 20 mg/2ml Vial SLOW IVP SCH (09:00)
[2020-04-03] MEDS ORDERED: Prevnar 13-Val Conj/PF 0.5 ML SYRINGE IM ONE (09:00)
--- NOTE | 2020-04-03 09:27 | CT ---
CT ANGIOGRAM CHEST WITH CONTRAST: 04/02/20 HISTORY: Chest pain. COMPARISON: Radiograph same day. FINDINGS: CT angiogram chest performed after the intravenous administration of contrast. 3D rendering provided. There is an embolism within the segmental branches of the left lower lobe anterior segment pulmonary artery. Old web within the posterior segment right lower lobe pulmonary artery. Small web in the dist al left main pulmonary artery. No central intraluminal filling defect to suggest a hyper acute emboli sm, the peripheral webs and strands are likely all chronic. Heart size is normal. No pericardial effusion. Limited evaluation of abdomen is unremarkable. No evidence for pneumonia. No pneumothorax. No effusio n. No suspicious pulmonary nodule. Sternum and manubrium are intact. Thoracic spine is intact. IMPRESSION: Bilateral segmental and subsegmental pulmonary webs and peripheral eccentric thrombi are likely chron ic embolism. No evidence for right heart strain. Dr. Barrett notified of findings via telephone at 7:30 p.m. POS: HOME
[2020-04-03] MEDS ORDERED: traMADol HCl 50 MG TAB PO PRN (09:46)
--- NOTE | 2020-04-03 11:22 | PDOC.HOSPP ---
- Subjective Encounter Date: 04/03/20 Encounter Time: 10:30 Subjective: f/u for RLE cellulitis on current Cefepime/Vancomycin. States feeling ok overall except for RLE swelling. - Objective Vital Signs & Weight: Vital Signs (12 hours) Temp Pulse Resp BP Pulse Ox 04/03/20 08:40 94 L 04/03/20 07:23 98.4 F 109 H 20 156/70 H 94 L 04/03/20 04:17 97.7 F 106 H 12 146/78 H 94 L 04/03/20 00:10 98.2 F 104 H 152/71 H 94 L Weight Weight 215 lb 9.6 oz I&O: 04/02/20 04/03/20 04/04/20 06:59 06:59 06:59 Output Total 3600 Balance -3600 Result Diagrams: 04/03/20 06:59 04/03/20 04:20 Additional Labs: Accuchecks 04/03/20 04/02/20 05:29 23:41 POC Glucose 330 H 310 H Microbiology 04/02/20 16:46 Artery - Left Leg Blood Culture - Preliminary Specimen has been received and culture in progress. No Growth to date. 04/02/20 15:00 Venous blood - Right Arm Blood Culture - Preliminary Specimen has been received and culture in progress. No Growth to date. Laboratory Tests 04/02/20 04/02/20 04/02/20 16:41 16:41 16:41 WBC 11.8 H D-Dimer 6.57 H Creatinine 1.27 H Lactic Acid 04/02/20 18:02 WBC D-Dimer Creatinine Lactic Acid 1.4 Radiology Reviewed by me: Yes (CTA chest - chronic lower lobe PE's) EKG Reviewed by me: Yes (Tele - Sinus tachycardia) Hospitalist ROS - Medication Medications: Active Medications Generic Name Dose Route Start Last Admin Trade Name Freq PRN Reason Stop Dose Admin Enoxaparin Sodium 100 mg 04/03/20 09:00 04/03/20 08:30 Lovenox SC 100 mg 0900,2100 NADINE Administration Famotidine 20 mg 04/03/20 09:00 04/03/20 08:30 Pepcid SLOW IVP 20 mg Q12HR NADINE Administration Sodium Chloride 1,000 mls @ 50 mls/hr 04/02/20 23:15 04/02/20 23:33 Normal Saline 0.9% IV 1,000 mls .Q20H NADINE Administration Insulin Human Lispro 0 units 04/02/20 21:34 04/03/20 06:30 Humalog SC 5 unit .MILD SLIDING SCALE PRN Administration Mild Correctional Scale Insulin Human Lispro 0 units 04/02/20 21:34 04/02/20 23:50 Humalog SC 4 unit .BEDTIME SLIDING SC PRN Administration Bedtime Correctional Scale - Exam General Appearance: NAD, awake alert Eye: PERRL, anicteric sclera ENT: normocephalic atraumatic, no oropharyngeal lesions Neck: supple, symmetric, no JVD, no thyromegaly, no lymphadenopathy Heart: no gallops, no rubs, normal peripheral pulses Heart - other findings: S1, S2 with tachycardia Respiratory: CTAB, no wheezes, no rales, no ronchi, normal chest expansion Gastrointestinal: soft, non-tender, non-distended, normal bowel sounds, no palpable masses Extremities - other findings: RLE with erythema in mid-estrada, chronic changes of the feet Skin: normal turgor Neurological: cranial nerve grossly intact, no new deficit Neurological - other findings: R hemparesis, bed bound chronically Musculoskeletal: generalized weakness Psychiatric: normal affect, A&O x 3 Hosp A/P (1) Cellulitis of right lower extremity Code(s): L03.115 - CELLULITIS OF RIGHT LOWER LIMB Status: Acute Plan: Continue Cefepime/Vancomycin, Elevate LE while in bed (2) Pulmonary emboli Code(s): I26.99 - OTHER PULMONARY EMBOLISM WITHOUT ACUTE COR PULMONALE Status : Chronic Qualifiers: Chronicity: chronic Plan: Chronic bilat PE's, continue anticoagulation with Coumadin, no O2 requirement (3) Chronic anticoagulation Code(s): Z79.01 - JAIL (CURRENT) USE OF ANTICOAGULANTS Status: Chronic Plan: Subtherapeutic INR, restart Coumadin 10mg daily, PT/INR daily, Lovenox bridge (4) CKD (chronic kidney disease), stage III Code(s): N18.3 - CHRONIC KIDNEY DISEASE, STAGE 3 (MODERATE) Status: Chronic Plan: Avoid nephrotoxic meds and limit contrast (5) Diabetes mellitus, type II, insulin dependent Code(s): E11.9 - TYPE 2 DIABETES MELLITUS WITHOUT COMPLICATIONS; Z79.4 - JAIL (CURRENT) USE OF INSULIN Status: Chronic Plan: Resume home insulin regimen, ISS, ADA, serial accuchecks - Plan continue antibiotics, social service assistant Stable currently Continue Cefepime/Vancomycin Resume Coumadin Continue Lovenox bridging Resume home meds/Insulin regimen AM lab: CMP, CBC, PT/INR
[2020-04-03] MEDS: Potassium Chloride 10 MEQ TAB PO SCH (12:42)
[2020-04-03 13:28] LABS: SARS-CoV-2 MS2 Positive; SARS-CoV-2 N Gene Negative; SARS-CoV-2 S Gene Negative; SARS-CoV-2 by NAA Not Detected (NotDetected); SARS-CoV-2 orf1ab Negative
[2020-04-03] MEDS: Furosemide 20 MG TAB PO SCH (13:32)
[2020-04-03] MEDS: Rivastigmine 1.5 MG CAP PO SCH ×2 (17:04→20:46)
[2020-04-03] MEDS: Vancomycin 1.5 GRAM/300 ML BAG 1.5 GM in Premix Bag 1 BAG IVPB SCH (17:04)
[2020-04-03] MEDS: Warfarin Sodium 10 MG TAB PO SCH (17:17)
[2020-04-03] MEDS: Cefepime 2 GM in Sodium Chloride 0.9% 100 ML IVPB SCH (17:17)
[2020-04-03] MEDS: Insulin Glargine 30 UNITS in Pre-Filled Syringe 1 EACH SC SCH (20:43)
[2020-04-03] MEDS: Atorvastatin Calcium 40 MG TAB PO SCH (20:44)
[2020-04-03] MEDS: Magnesium Oxide 400 MG TAB PO SCH (20:44)
[2020-04-03] MEDS: metFORMIN 500 MG TAB PO SCH (20:44)
[2020-04-03] MEDS: Ferrous Sulfate 325 MG TAB PO SCH (20:45)
[2020-04-03] MEDS: traZODone HCl 50 MG TAB PO SCH (20:45)
[2020-04-03] MEDS ORDERED: Non-Formulary Item 1 EACH (Insulin Glargine,Hum.Rec.Anlog [Lantus Solostar] 30 UNIT) SC SCH (21:00)
[2020-04-04 05:00] LABS: Prothrombin Time 13.2 sec (12.0-14.7)
[2020-04-04 05:03] LABS: #Basophils 0.1 thou/uL (0.0-0.2); #Eosinphils 0.1 thou/uL (0.0-0.7); #Lymphocytes 3.6 thou/uL (1.20-3.40); #Monocytes 0.8 thou/uL (0.11-0.59); #Neutrophils 5.6 thou/uL (1.40-6.50); %Basophils 0.6 % (0.0-1.0); %Eosinophils 0.9 % (0.0-10.0); %Lymphocytes 35.5 % (21.0-51.0); %Monocytes 8.1 % (0.0-10.0); Hemoglobin 10.4 g/dL (12.0-16.0); Mean Corpuscular HGB CONC 31.9 g/dL (32.0-36.0); Mean Corpuscular Hemoglobin 29.7 pg (27.0-31.0); Mean Corpuscular Volume 93.4 fL (78.0-98.0); Mean Platelet Volume 8.2 fL (7.4-10.4); Platelet Count 416 thou/uL (130-400); RBC Distribution Width 14.4 % (11.5-14.5); Red Blood Cell (RBC) Count 3.51 mill/uL (4.20-5.40); White Blood Cell (WBC) Count 10.2 thou/uL (4.8-10.8)
[2020-04-04 05:22] LABS: ALT (SGPT) 9 U/L (8-55); AST (SGOT) 14 U/L (5-34); Albumin 3.3 g/dL (3.4-4.8); Alkaline Phosphatase 99 U/L (40-110); Anion Gap 15 mmol/L (10-20); BUN (Urea Nitrogen) 14 mg/dL (9.8-20.1); Bilirubin, Total 0.3 mg/dL (0.2-1.2); Calc. Creatinine Clearance 70 mL/min (70-130); Calcium 8.6 mg/dL (7.8-10.44); Carbon Dioxide 27 mmol/L (23-31); Chloride 102 mmol/L (98-107); Estimated GFR-MDRD 42; Glucose 191 mg/dL (80-115); Potassium 3.8 mmol/L (3.5-5.1); Protein, Total 6.3 g/dL (6.0-8.3); Sodium 140 mmol/L (136-145)
[2020-04-04] MEDS: HumaLOG 300 UNITS/3 ML VIAL SC PRN ×3 (06:56→17:40)
[2020-04-04] MEDS: Enoxaparin Sodium 100 MG/ML SYRINGE SC SCH ×2 (08:43→20:50)
[2020-04-04] MEDS: Lisinopril 20 MG TAB PO SCH (08:43)
[2020-04-04] MEDS: Rivastigmine 1.5 MG CAP PO SCH ×3 (08:44→20:48)
[2020-04-04] MEDS: Cholecalciferol 1,000 UNITS (25 MCG) TAB PO SCH (08:44)
[2020-04-04] MEDS: Ferrous Sulfate 325 MG TAB PO SCH ×2 (08:44→20:49)
[2020-04-04] MEDS: Amlodipine 10 MG TAB PO SCH (08:44)
[2020-04-04] MEDS: Multivit, Therapeutic 1 TAB PO SCH (08:44)
[2020-04-04] MEDS: Furosemide 20 MG TAB PO SCH ×2 (08:45→15:35)
[2020-04-04] MEDS: metFORMIN 500 MG TAB PO SCH ×2 (08:45→20:49)
[2020-04-04] MEDS: Magnesium Oxide 400 MG TAB PO SCH ×2 (08:45→20:48)
[2020-04-04] MEDS: hydrALAZINE 25 MG TAB PO SCH (08:45)
--- NOTE | 2020-04-04 10:41 | PDOC.HOSPP ---
- Subjective Encounter Date: 04/04/20 Encounter Time: 10:40 Subjective: f/u for RLE cellulitis on Cefepime/Vancomycin - Objective Vital Signs & Weight: Vital Signs (12 hours) Temp Pulse Resp BP Pulse Ox 04/04/20 08:33 98.4 F 109 H 18 180/79 H 96 04/04/20 03:56 98.8 F 111 H 18 142/71 H 93 L Weight Admit Weight 215 lb 9.6 oz Weight 205 lb 4.8 oz I&O: 04/03/20 04/04/20 04/05/20 06:59 06:59 06:59 Intake Total 1740 Output Total 3600 3900 Balance -3600 -2160 Result Diagrams: 04/04/20 04:21 04/04/20 04:21 Additional Labs: Accuchecks 04/04/20 04/03/20 04/03/20 05:28 20:03 16:54 POC Glucose 184 H 261 H 280 H 04/03/20 11:58 POC Glucose 314 H Microbiology 04/02/20 17:36 Urine voided Urine Culture - Preliminary 04/02/20 16:46 Artery - Left Leg Blood Culture - Preliminary Specimen has been received and culture in progress. No Growth to date. 04/02/20 15:00 Venous blood - Right Arm Blood Culture - Preliminary Specimen has been received and culture in progress. No Growth to date. Laboratory Tests 04/02/20 04/02/20 04/02/20 16:41 16:41 16:41 WBC 11.8 H PT INR D-Dimer 6.57 H Creatinine 1.27 H Lactic Acid 04/02/20 04/04/20 18:02 04:21 WBC PT 13.2 INR 1.0 D-Dimer Creatinine Lactic Acid 1.4 EKG Reviewed by me: Yes (Tele - sinus tachycardia) Hospitalist ROS - Medication Medications: Active Medications Generic Name Dose Route Start Last Admin Trade Name Freq PRN Reason Stop Dose Admin Amlodipine Besylate 10 mg 04/04/20 09:00 04/04/20 08:44 Norvasc PO 10 mg DAILY NADINE Administration Atorvastatin Calcium 40 mg 04/03/20 21:00 04/03/20 20:44 Lipitor PO 40 mg HS NADINE Administration Cholecalciferol 2,000 units 04/04/20 09:00 04/04/20 08:44 Vitamin D3 PO 2,000 units DAILY NADINE Administration Enoxaparin Sodium 100 mg 04/03/20 09:00 04/04/20 08:43 Lovenox SC 100 mg 0900,2100 NADINE Administration Ferrous Sulfate 325 mg 04/03/20 21:00 04/04/20 08:44 Feosol PO 325 mg BID NADINE Administration Furosemide 20 mg 04/03/20 14:00 04/04/20 08:45 Lasix PO 20 mg 0900,1400 NADINE Administration Hydralazine HCl 25 mg 04/04/20 09:00 04/04/20 08:45 Apresoline PO 25 mg DAILY NADINE Administration Cefepime HCl 2 gm/ Sodium 100 mls @ 200 mls/hr 04/03/20 17:00 04/03/20 17:17 Chloride IVPB 100 mls 1700 NADINE Administration Sodium Chloride 1,000 mls @ 50 mls/hr 04/02/20 23:15 04/02/20 23:33 Normal Saline 0.9% IV 1,000 mls .Q20H NADINE Administration Vancomycin HCl 1.5 gm/ Device 300 mls @ 200 mls/hr 04/03/20 15:00 04/03/20 17 :04 IVPB 300 mls 1500 NADINE Administration Insulin Glargine 30 units/ 0.3 mls @ 0 mls/hr 04/03/20 21:00 04/03/20 20:43 Miscellaneous Medication SC 0.3 mls HS NADINE Administration Insulin Human Lispro 0 units 04/02/20 21:34 04/04/20 06:56 Humalog SC 2 unit .MILD SLIDING SCALE PRN Administration Mild Correctional Scale Insulin Human Lispro 0 units 04/02/20 21:34 04/02/20 23:50 Humalog SC 4 unit .BEDTIME SLIDING SC PRN Administration Bedtime Correctional Scale Lisinopril 40 mg 04/04/20 09:00 04/04/20 08:43 Zestril PO 40 mg DAILY NADINE Administration Magnesium Oxide 400 mg 04/03/20 21:00 04/04/20 08:45 Magnesium Oxide PO 400 mg BID NADINE Administration Metformin HCl 500 mg 04/03/20 21:00 04/04/20 08:45 Glucophage PO 500 mg BID NADINE Administration Multivitamins 1 tab 04/04/20 09:00 04/04/20 08:44 Theragran PO 1 tab DAILY NADINE Administration Pantoprazole Sodium 40 mg 04/03/20 21:00 04/04/20 08:44 Protonix PO 40 mg BID NADINE Administration Potassium Chloride 10 meq 04/03/20 10:00 04/03/20 12:42 Klor-Con 10 PO 10 meq Q2DAYS NADINE Administration Rivastigmine 3 mg 04/03/20 15:00 04/04/20 08:44 Exelon PO 3 mg TID NADINE Administration Trazodone HCl 75 mg 04/03/20 21:00 04/03/20 20:45 Desyrel PO 75 mg HS NADINE Administration Warfarin Sodium 10 mg 04/03/20 17:00 04/03/20 17:17 Coumadin PO 10 mg 1700 NADINE Administration - Exam General Appearance: NAD, awake alert Eye: PERRL, anicteric sclera ENT: normocephalic atraumatic, no oropharyngeal lesions Neck: supple, symmetric, no JVD, no thyromegaly Heart: no gallops, no rubs, normal peripheral pulses Heart - other findings: S1, S2 with tachycardia Respiratory: CTAB, no wheezes, no rales, no ronchi, normal chest expansion Gastrointestinal: soft, non-tender, non-distended, normal bowel sounds, no palpable masses Extremities: no cyanosis Extremities - other findings: RLE with decreased erythema mid-estrada Skin: normal turgor Neurological: cranial nerve grossly intact, no new deficit Neurological - other findings: R hemiparesis(chronic), chronic bed-bound Musculoskeletal: generalized weakness Psychiatric: oriented to person, oriented to place Hosp A/P (1) Cellulitis of right lower extremity Code(s): L03.115 - CELLULITIS OF RIGHT LOWER LIMB Status: Acute Plan: Improving, continue Cefepime/Vancomycin (2) Pulmonary emboli Code(s): I26.99 - OTHER PULMONARY EMBOLISM WITHOUT ACUTE COR PULMONALE Status : Chronic Qualifiers: Chronicity: chronic Plan: Continue Lovenox bridging, Coumadin 10mg daily with PT/INR monitoring, INR currently 1.0 (3) Chronic anticoagulation Code(s): Z79.01 - 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) USE OF ANTICOAGULANTS Status: Chronic (4) CKD (chronic kidney disease), stage III Code(s): N18.3 - CHRONIC KIDNEY DISEASE, STAGE 3 (MODERATE) Status: Chronic Plan: Avoid nephrotoxic meds and limit contrast exposure (5) Diabetes mellitus, type II, insulin dependent Code(s): E11.9 - TYPE 2 DIABETES MELLITUS WITHOUT COMPLICATIONS; Z79.4 - USP (CURRENT) USE OF INSULIN Status: Chronic Plan: Continue Glargine 30u HS/Metformin/ISS, ADA, serial accuchecks - Plan continue antibiotics, social worker school Stable currently Continue Cefepime/Vancomycin Resume Coumadin 10mg daily, subtherapeutic INR currently Continue Lovenox bridging Resume home meds/Insulin regimen AM lab: BMP, PT/INR, Vanc trough
[2020-04-04] MEDS: Sodium Chloride 0.9% 1,000 ML IV SCH ×2 (13:16→15:31)
[2020-04-04 14:51] LABS: Vancomycin, Trough 16.7 ug/mL
[2020-04-04] MEDS: Vancomycin 1.5 GRAM/300 ML BAG 1.5 GM in Premix Bag 1 BAG IVPB SCH (15:34)
[2020-04-04] MEDS: Cefepime 2 GM in Sodium Chloride 0.9% 100 ML IVPB SCH (17:41)
[2020-04-04] MEDS: Warfarin Sodium 10 MG TAB PO SCH (17:42)
[2020-04-04] MEDS: Insulin Glargine 30 UNITS in Pre-Filled Syringe 1 EACH SC SCH (20:48)
[2020-04-04] MEDS: traZODone HCl 50 MG TAB PO SCH (20:48)
[2020-04-04] MEDS: Atorvastatin Calcium 40 MG TAB PO SCH (20:49)
[2020-04-05 04:35] LABS: INR-International Normal Ratio 1.1; Prothrombin Time 14.6 sec (12.0-14.7)
[2020-04-05 05:10] LABS: Anion Gap 18 mmol/L (10-20); BUN (Urea Nitrogen) 18 mg/dL (9.8-20.1); Calc. Creatinine Clearance 57 mL/min (70-130); Calcium 8.5 mg/dL (7.8-10.44); Carbon Dioxide 23 mmol/L (23-31); Chloride 103 mmol/L (98-107); Estimated GFR-MDRD 35; Glucose 176 mg/dL (80-115); Magnesium 1.5 mg/dL (1.6-2.6); Potassium 3.9 mmol/L (3.5-5.1); Sodium 140 mmol/L (136-145)
[2020-04-05] MEDS: Furosemide 20 MG TAB PO SCH ×2 (09:29→13:23)
[2020-04-05] MEDS: Cholecalciferol 1,000 UNITS (25 MCG) TAB PO SCH (09:29)
[2020-04-05] MEDS: Enoxaparin Sodium 100 MG/ML SYRINGE SC SCH ×2 (09:29→20:17)
[2020-04-05] MEDS: Lisinopril 20 MG TAB PO SCH (09:30)
[2020-04-05] MEDS: metFORMIN 500 MG TAB PO SCH ×2 (09:30→20:14)
[2020-04-05] MEDS: Amlodipine 10 MG TAB PO SCH (09:30)
[2020-04-05] MEDS: Potassium Chloride 10 MEQ TAB PO SCH (09:31)
[2020-04-05] MEDS: Magnesium Oxide 400 MG TAB PO SCH ×2 (09:31→20:14)
[2020-04-05] MEDS: Rivastigmine 1.5 MG CAP PO SCH ×3 (09:31→20:14)
[2020-04-05] MEDS: Ferrous Sulfate 325 MG TAB PO SCH ×2 (09:31→20:16)
[2020-04-05] MEDS: hydrALAZINE 25 MG TAB PO SCH (09:31)
[2020-04-05] MEDS: Multivit, Therapeutic 1 TAB PO SCH (09:32)
[2020-04-05] MEDS: HumaLOG 300 UNITS/3 ML VIAL SC PRN ×2 (11:15→18:02)
[2020-04-05] MEDS: Sodium Chloride 0.9% 1,000 ML IV SCH (11:15)
[2020-04-05] MEDS ORDERED: Magnesium Oxide 400 MG TAB PO SCH (13:00)
[2020-04-05] MEDS: Vancomycin 1.5 GRAM/300 ML BAG 1.5 GM in Premix Bag 1 BAG IVPB SCH (15:04)
--- NOTE | 2020-04-05 15:20 | EKG ---
Test Reason : Blood Pressure : / mmHG Vent. Rate : 109 BPM Atrial Rate : 109 BPM P-R Int : 176 ms QRS Dur : 078 ms QT Int : 334 ms P-R-T Axes : 070 078 071 degrees QTc Int : 449 ms Sinus tachycardia Possible Left atrial enlargement Septal infarct , age undetermined Abnormal ECG Confirmed by STAR ROMERO DO ([id number]), associate entertainment editor SAMMY TUORE ([id number]) on 04/05/2020 3:19:54 PM Referred By: Confirmed By:STAR ROMERO DO
--- NOTE | 2020-04-05 16:20 | PDOC.HOSPP ---
- Subjective Encounter Date: 04/05/20 Encounter Time: 09:00 Subjective: no overnight events. this morning, feeling well, leg pain improved. - Objective Vital Signs & Weight: Vital Signs (12 hours) Temp Pulse Resp BP Pulse Ox 04/05/20 15:13 98.9 F 106 H 16 137/63 95 04/05/20 11:10 98.7 F 105 H 17 145/65 H 96 04/05/20 07:46 99.1 F 102 H 17 140/65 95 Weight Admit Weight 215 lb 9.6 oz Weight 205 lb 4.8 oz I&O: 04/04/20 04/05/20 04/06/20 06:59 06:59 06:59 Intake Total 1740 2510 Output Total 3900 3000 Balance -2160 -490 Result Diagrams: 04/04/20 04:21 04/05/20 04:12 Additional Labs: Accuchecks 04/05/20 04/05/20 04/04/20 10:46 05:39 20:33 POC Glucose 202 H 162 H 178 H 04/04/20 16:20 POC Glucose 217 H Hospitalist ROS - Review of Systems Constitutional: denies: chills, sweats Respiratory: denies: cough, dry, shortness of breath Cardiovascular: denies: chest pain, palpitations, orthopnea Gastrointestinal: denies: nausea, vomiting, abdominal pain Genitourinary: denies: dysuria, frequency, hematuria - Medication Medications: Active Medications Generic Name Dose Route Start Last Admin Trade Name Lesterq PRN Reason Stop Dose Admin Amlodipine Besylate 10 mg 04/04/20 09:00 04/05/20 09:30 Norvasc PO 10 mg DAILY NADINE Administration Atorvastatin Calcium 40 mg 04/03/20 21:00 04/04/20 20:49 Lipitor PO 40 mg HS NADINE Administration Cholecalciferol 2,000 units 04/04/20 09:00 04/05/20 09:29 Vitamin D3 PO 2,000 units DAILY NADINE Administration Enoxaparin Sodium 100 mg 04/03/20 09:00 04/05/20 09:29 Lovenox SC 100 mg 0900,2100 NADINE Administration Ferrous Sulfate 325 mg 04/03/20 21:00 04/05/20 09:31 Feosol PO 325 mg BID NADINE Administration Hydralazine HCl 25 mg 04/04/20 09:00 04/05/20 09:31 Apresoline PO 25 mg DAILY NADINE Administration Vancomycin HCl 1.5 gm/ Device 300 mls @ 200 mls/hr 04/03/20 15:00 04/05/20 15 :04 IVPB 300 mls 1500 NADINE Administration Insulin Glargine 30 units/ 0.3 mls @ 0 mls/hr 04/03/20 21:00 04/04/20 20:48 Miscellaneous Medication SC 0.3 mls HS NADINE Administration Insulin Human Lispro 0 units 04/02/20 21:34 04/05/20 11:15 Humalog SC 3 unit .MILD SLIDING SCALE PRN Administration Mild Correctional Scale Insulin Human Lispro 0 units 04/02/20 21:34 04/02/20 23:50 Humalog SC 4 unit .BEDTIME SLIDING SC PRN Administration Bedtime Correctional Scale Lisinopril 40 mg 04/04/20 09:00 04/05/20 09:30 Zestril PO 40 mg DAILY NADINE Administration Magnesium Oxide 400 mg 04/03/20 21:00 04/05/20 09:31 Magnesium Oxide PO 400 mg BID NADINE Administration Magnesium Oxide 400 mg 04/05/20 13:00 04/05/20 13:23 Magnesium Oxide PO 04/05/20 17:00 400 mg 1300 NADINE Administration Metformin HCl 500 mg 04/03/20 21:00 04/05/20 09:30 Glucophage PO 500 mg BID NADINE Administration Multivitamins 1 tab 04/04/20 09:00 04/05/20 09:32 Theragran PO 1 tab DAILY NADINE Administration Pantoprazole Sodium 40 mg 04/03/20 21:00 04/05/20 09:31 Protonix PO 40 mg BID NADINE Administration Potassium Chloride 10 meq 04/03/20 10:00 04/05/20 09:31 Klor-Con 10 PO 10 meq Q2DAYS NADINE Administration Rivastigmine 3 mg 04/03/20 15:00 04/05/20 15:04 Exelon PO 3 mg TID NADINE Administration Trazodone HCl 75 mg 04/03/20 21:00 04/04/20 20:48 Desyrel PO 75 mg HS NADINE Administration Warfarin Sodium 10 mg 04/03/20 17:00 04/04/20 17:42 Coumadin PO 10 mg 1700 NADINE Administration - Exam General Appearance: NAD, awake alert Neck: no JVD Heart: RRR, no murmur, no gallops, no rubs Respiratory: CTAB, no wheezes, no rales, no ronchi Gastrointestinal: soft, non-tender, non-distended, normal bowel sounds Extremities - other findings: right lower extremity erythema resolved; pain persists Hosp A/P - Plan (1) Mild Cellulitis of right lower extremity Code(s): L03.115 - CELLULITIS OF RIGHT LOWER LIMB Status: Acute Plan: Improving,continue vancomycin; stop cefepime (2) Pulmonary emboli Code(s): I26.99 - OTHER PULMONARY EMBOLISM WITHOUT ACUTE COR PULMONALE Status : Chronic Qualifiers: Chronicity: chronic Plan: Continue Lovenox bridging, Coumadin 10mg daily with PT/INR monitoring, INR currently 1.0 (3) Chronic anticoagulation Code(s): Z79.01 - 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
[2020-04-05] MEDS: HumaLOG 300 UNITS/3 ML VIAL SC SCH (17:59)
[2020-04-05] MEDS: Warfarin Sodium 10 MG TAB PO SCH (18:02)
[2020-04-05] MEDS: Insulin Glargine 20 UNITS in Pre-Filled Syringe 1 EACH SC SCH (20:12)
[2020-04-05] MEDS: Atorvastatin Calcium 40 MG TAB PO SCH (20:15)
[2020-04-05] MEDS: traZODone HCl 50 MG TAB PO SCH (20:16)
[2020-04-06 04:48] LABS: INR-International Normal Ratio 1.5; Prothrombin Time 18.2 sec (12.0-14.7)
[2020-04-06 04:56] LABS: Anion Gap 16 mmol/L (10-20); BUN (Urea Nitrogen) 17 mg/dL (9.8-20.1); Calc. Creatinine Clearance 64 mL/min (70-130); Calcium 8.8 mg/dL (7.8-10.44); Carbon Dioxide 25 mmol/L (23-31); Chloride 103 mmol/L (98-107); Estimated GFR-MDRD 40; Glucose 152 mg/dL (80-115); Magnesium 1.5 mg/dL (1.6-2.6); Potassium 3.7 mmol/L (3.5-5.1); Sodium 140 mmol/L (136-145)
[2020-04-06] MEDS: HumaLOG 300 UNITS/3 ML VIAL SC PRN (06:34)
[2020-04-06] MEDS ORDERED: HumaLOG 300 UNITS/3 ML VIAL SC SCH (08:15)
[2020-04-06] MEDS: HumaLOG 300 UNITS/3 ML VIAL SC SCH ×3 (08:20→17:21)
[2020-04-06] MEDS: Cholecalciferol 1,000 UNITS (25 MCG) TAB PO SCH (08:27)
[2020-04-06] MEDS: Ferrous Sulfate 325 MG TAB PO SCH ×2 (08:27→21:18)
[2020-04-06] MEDS: Amlodipine 10 MG TAB PO SCH (08:27)
[2020-04-06] MEDS: metFORMIN 500 MG TAB PO SCH ×2 (08:28→21:18)
[2020-04-06] MEDS: Lisinopril 20 MG TAB PO SCH (08:28)
[2020-04-06] MEDS: Magnesium Oxide 400 MG TAB PO SCH ×3 (08:29→21:18)
[2020-04-06] MEDS: hydrALAZINE 25 MG TAB PO SCH (08:29)
[2020-04-06] MEDS: Multivit, Therapeutic 1 TAB PO SCH (08:29)
[2020-04-06] MEDS: Enoxaparin Sodium 100 MG/ML SYRINGE SC SCH ×2 (08:29→21:17)
[2020-04-06] MEDS: Rivastigmine 1.5 MG CAP PO SCH ×3 (08:29→21:32)
[2020-04-06] MEDS ORDERED: Furosemide 20 MG TAB PO SCH (09:00)
[2020-04-06] MEDS: Warfarin Sodium 10 MG TAB PO SCH (17:21)
--- NOTE | 2020-04-06 18:44 | PDOC.HOSPP ---
- Subjective Encounter Date: 04/06/20 Encounter Time: 09:00 Subjective: Overnight, 4 vtach beats, asymptomatic, PATs, and short SVT. this morning, right lower extremity pain persists. Otherwise no complaints. - Objective Vital Signs & Weight: Vital Signs (12 hours) Temp Pulse Resp BP Pulse Ox 04/06/20 15:09 97.1 F L 96 18 117/58 L 95 04/06/20 11:17 98.0 F 88 18 114/59 L 96 04/06/20 08:26 127/59 L 04/06/20 07:33 98.3 F 102 H 16 118/58 L 94 L Weight Admit Weight 215 lb 9.6 oz Weight 205 lb 4.8 oz I&O: 04/05/20 04/06/20 04/07/20 06:59 06:59 06:59 Intake Total 2510 2020 960 Output Total 3000 1250 425 Balance -490 770 535 Result Diagrams: 04/04/20 04:21 04/06/20 03:57 Additional Labs: Accuchecks 04/06/20 04/06/20 04/06/20 16:51 10:54 05:57 POC Glucose 143 H 158 H 164 H 04/05/20 04/05/20 23:59 19:45 POC Glucose 165 H 149 H Hospitalist ROS - Review of Systems Constitutional: denies: chills, sweats Respiratory: denies: cough, shortness of breath Cardiovascular: denies: chest pain, palpitations, orthopnea Gastrointestinal: denies: nausea, vomiting, abdominal pain - Medication Medications: Active Medications Generic Name Dose Route Start Last Admin Trade Name Noé PRN Reason Stop Dose Admin Amlodipine Besylate 10 mg 04/04/20 09:00 04/06/20 08:27 Norvasc PO 10 mg DAILY NADINE Administration Atorvastatin Calcium 40 mg 04/03/20 21:00 04/05/20 20:15 Lipitor PO 40 mg HS NADINE Administration Cholecalciferol 2,000 units 04/04/20 09:00 04/06/20 08:27 Vitamin D3 PO 2,000 units DAILY NADINE Administration Enoxaparin Sodium 100 mg 04/03/20 09:00 04/06/20 08:29 Lovenox SC 100 mg 0900,2100 NADINE Administration Ferrous Sulfate 325 mg 04/03/20 21:00 04/06/20 08:27 Feosol PO 325 mg BID NADINE Administration Furosemide 20 mg 04/06/20 09:00 04/06/20 08:28 Lasix PO 20 mg 0900 NADINE Administration Hydralazine HCl 25 mg 04/04/20 09:00 04/06/20 08:29 Apresoline PO 25 mg DAILY NADINE Administration Insulin Glargine 20 units/ 0.2 mls @ 0 mls/hr 04/05/20 16:31 04/05/20 20:12 Miscellaneous Medication SC 0.2 mls HS NADINE Administration As Directed Insulin Human Lispro 0 units 04/02/20 21:34 04/06/20 06:34 Humalog SC 2 unit .MILD SLIDING SCALE PRN Administration Mild Correctional Scale Insulin Human Lispro 0 units 04/02/20 21:34 04/02/20 23:50 Humalog SC 4 unit .BEDTIME SLIDING SC PRN Administration Bedtime Correctional Scale Insulin Human Lispro 7 units 04/05/20 17:00 04/06/20 17:21 Humalog SC 7 unit AC NADINE Administration Lisinopril 40 mg 04/04/20 09:00 04/06/20 08:28 Zestril PO 40 mg DAILY NADINE Administration Magnesium Oxide 400 mg 04/06/20 15:00 04/06/20 15:28 Magnesium Oxide PO 400 mg TID NADINE Administration Metformin HCl 500 mg 04/03/20 21:00 04/06/20 08:28 Glucophage PO 500 mg BID NADINE Administration Multivitamins 1 tab 04/04/20 09:00 04/06/20 08:29 Theragran PO 1 tab DAILY NADINE Administration Pantoprazole Sodium 40 mg 04/03/20 21:00 04/06/20 08:28 Protonix PO 40 mg BID NADINE Administration Potassium Chloride 10 meq 04/03/20 10:00 04/05/20 09:31 Klor-Con 10 PO 10 meq Q2DAYS NADINE Administration Rivastigmine 3 mg 04/03/20 15:00 04/06/20 15:28 Exelon PO 3 mg TID NADINE Administration Sodium Chloride 10 ml 04/02/20 21:32 04/06/20 08:30 Flush - Normal Saline IVF 10 ml Q12HR PRN Administration Saline Flush Tramadol HCl 50 mg 04/03/20 09:46 04/06/20 06:22 Ultram PO 50 mg BID PRN Administration Pain Trazodone HCl 75 mg 04/03/20 21:00 04/05/20 20:16 Desyrel PO 75 mg HS NADINE Administration Warfarin Sodium 10 mg 04/03/20 17:00 04/06/20 17:21 Coumadin PO 10 mg 1700 NADINE Administration - Exam General Appearance: NAD, awake alert Neck: no JVD Heart: RRR, no murmur, no gallops, no rubs Respiratory: CTAB, no wheezes, no rales, no ronchi Gastrointestinal: soft, non-tender, non-distended, normal bowel sounds Extremities - other findings: b/l pitting edema; RLE tenderness, verucous edema , no erythema or warmth Psychiatric: oriented to person, oriented to place, flat affect. negative: oriented to time Hosp A/P - Plan (1) RLE verucous lymphedema Code(s): L03.115 - CELLULITIS OF RIGHT LOWER LIMB Status: Acute Plan: Likely related to right hemoparesis and venous insufficiency -stopped vancomycin; started compression stocking if tolerated despite pain -wound care consulted (2) Pulmonary emboli Code(s): I26.99 - OTHER PULMONARY EMBOLISM WITHOUT ACUTE COR PULMONALE Status : Chronic Qualifiers: Chronicity: chronic Plan: Continue Lovenox bridging, Coumadin per pharm (3) Chronic anticoagulation Code(s): Z79.01 - SKILLED NURSING (CURRENT) USE OF ANTICOAGULANTS Status: Chronic (4) CKD (chronic kidney disease), stage III Code(s): N18.3 - CHRONIC KIDNEY DISEASE, STAGE 3 (MODERATE) Status: Chronic Plan: worsening creatitinine; deescalated lasix, stop IVF (04/05) at baseline (04/06) (5) Diabetes mellitus, type II, insulin dependent Code(s): E11.9 - TYPE 2 DIABETES MELLITUS WITHOUT COMPLICATIONS; 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
[2020-04-06] MEDS: Atorvastatin Calcium 40 MG TAB PO SCH (21:17)
[2020-04-06] MEDS: Insulin Glargine 20 UNITS in Pre-Filled Syringe 1 EACH SC SCH (21:18)
[2020-04-06] MEDS: traZODone HCl 50 MG TAB PO SCH (21:22)
[2020-04-07 05:28] LABS: Anion Gap 17 mmol/L (10-20); BUN (Urea Nitrogen) 20 mg/dL (9.8-20.1); Calc. Creatinine Clearance 58 mL/min (70-130); Calcium 8.7 mg/dL (7.8-10.44); Carbon Dioxide 21 mmol/L (23-31); Chloride 102 mmol/L (98-107); Estimated GFR-MDRD 35; Glucose 239 mg/dL (80-115); Magnesium 1.5 mg/dL (1.6-2.6); Potassium 4.1 mmol/L (3.5-5.1); Sodium 136 mmol/L (136-145)
[2020-04-07] MEDS: metFORMIN 500 MG TAB PO SCH (08:27)
[2020-04-07] MEDS: Multivit, Therapeutic 1 TAB PO SCH (08:27)
[2020-04-07] MEDS: Cholecalciferol 1,000 UNITS (25 MCG) TAB PO SCH (08:28)
[2020-04-07] MEDS: Potassium Chloride 10 MEQ TAB PO SCH (08:30)
[2020-04-07] MEDS: Magnesium Oxide 400 MG TAB PO SCH ×3 (08:31→20:44)
[2020-04-07] MEDS: HumaLOG 300 UNITS/3 ML VIAL SC SCH ×3 (08:32→17:05)
[2020-04-07] MEDS: Enoxaparin Sodium 100 MG/ML SYRINGE SC SCH ×2 (08:32→20:43)
[2020-04-07] MEDS: Amlodipine 10 MG TAB PO SCH (08:35)
[2020-04-07] MEDS: Ferrous Sulfate 325 MG TAB PO SCH ×2 (08:35→20:44)
[2020-04-07] MEDS: Lisinopril 20 MG TAB PO SCH (08:40)
[2020-04-07] MEDS: hydrALAZINE 25 MG TAB PO SCH (08:40)
[2020-04-07] MEDS: Rivastigmine 1.5 MG CAP PO SCH ×3 (09:09→20:45)
[2020-04-07 10:31] LABS: INR-International Normal Ratio 1.9
[2020-04-07] MEDS: Warfarin Sodium 10 MG TAB PO SCH (17:06)
--- NOTE | 2020-04-07 17:31 | PDOC.HOSPP ---
- Subjective Encounter Date: 04/07/20 Encounter Time: 17:30 Subjective: No overnight events. Pt reports she feels well. Her right lower extremity pain is improved. Denies CP, SOB, abdominal pain. No new neurologic deficits. Chart and medications reviewed. - Objective Vital Signs & Weight: Vital Signs (12 hours) Temp Pulse Resp BP Pulse Ox 04/07/20 15:00 98.5 F 110 H 17 127/61 97 04/07/20 12:00 98.4 F 104 H 17 130/63 98 04/07/20 07:11 98.6 F 91 20 127/60 96 Weight Admit Weight 215 lb 9.6 oz Weight 205 lb 4.8 oz I&O: 04/06/20 04/07/20 04/08/20 06:59 06:59 06:59 Intake Total 2019 1310 720 Output Total 1250 675 600 Balance 770 635 120 Result Diagrams: 04/04/20 04:21 04/07/20 04:39 Additional Labs: Accuchecks 04/07/20 04/07/20 04/07/20 17:01 11:06 05:36 POC Glucose 136 H 146 H 235 H 04/06/20 04/06/20 20:50 16:51 POC Glucose 190 H 143 H Hospitalist ROS - Review of Systems Constitutional: denies: fever Eyes: denies: vision change Respiratory: denies: cough, shortness of breath Cardiovascular: denies: chest pain, palpitations Gastrointestinal: denies: nausea, vomiting, abdominal pain Genitourinary: denies: dysuria Neurological: denies: weakness - Medication Medications: Active Medications Generic Name Dose Route Start Last Admin Trade Name Noé PRN Reason Stop Dose Admin Amlodipine Besylate 10 mg 04/04/20 09:00 04/07/20 08:35 Norvasc PO 10 mg DAILY NADINE Administration Atorvastatin Calcium 40 mg 04/03/20 21:00 04/06/20 21:17 Lipitor PO 40 mg HS NADINE Administration Cholecalciferol 2,000 units 04/04/20 09:00 04/07/20 08:28 Vitamin D3 PO 2,000 units DAILY NADINE Administration Enoxaparin Sodium 100 mg 04/03/20 09:00 04/07/20 08:32 Lovenox SC 100 mg 0900,2100 NADINE Administration Ferrous Sulfate 325 mg 04/03/20 21:00 04/07/20 08:35 Feosol PO 325 mg BID NADINE Administration Hydralazine HCl 25 mg 04/04/20 09:00 04/07/20 08:40 Apresoline PO Not Given DAILY NADINE Insulin Glargine 20 units/ 0.2 mls @ 0 mls/hr 04/05/20 16:31 04/06/20 21:18 Miscellaneous Medication SC 0.2 mls HS NADINE Administration As Directed Insulin Human Lispro 0 units 04/02/20 21:34 04/06/20 06:34 Humalog SC 2 unit .MILD SLIDING SCALE PRN Administration Mild Correctional Scale Insulin Human Lispro 0 units 04/02/20 21:34 04/02/20 23:50 Humalog SC 4 unit .BEDTIME SLIDING SC PRN Administration Bedtime Correctional Scale Insulin Human Lispro 7 units 04/05/20 17:00 04/07/20 17:05 Humalog SC 7 unit AC NADINE Administration Lisinopril 40 mg 04/04/20 09:00 04/07/20 08:40 Zestril PO Not Given DAILY NADINE Magnesium Oxide 400 mg 04/06/20 15:00 04/07/20 15:34 Magnesium Oxide PO 400 mg TID NADINE Administration Metformin HCl 500 mg 04/03/20 21:00 04/07/20 08:27 Glucophage PO 500 mg BID NADINE Administration Multivitamins 1 tab 04/04/20 09:00 04/07/20 08:27 Theragran PO 1 tab DAILY NADINE Administration Pantoprazole Sodium 40 mg 04/03/20 21:00 04/07/20 08:28 Protonix PO 40 mg BID NADINE Administration Potassium Chloride 10 meq 04/03/20 10:00 04/07/20 08:30 Klor-Con 10 PO 10 meq Q2DAYS NADINE Administration Rivastigmine 3 mg 04/03/20 15:00 04/07/20 15:34 Exelon PO 3 mg TID NADINE Administration Sodium Chloride 10 ml 04/02/20 21:32 04/06/20 08:30 Flush - Normal Saline IVF 10 ml Q12HR PRN Administration Saline Flush Tramadol HCl 50 mg 04/03/20 09:46 04/06/20 06:22 Ultram PO 50 mg BID PRN Administration Pain Trazodone HCl 75 mg 04/03/20 21:00 04/06/20 21:22 Desyrel PO 75 mg HS NADINE Administration Warfarin Sodium 10 mg 04/03/20 17:00 04/07/20 17:06 Coumadin PO 10 mg 1700 NADINE Administration - Exam General Appearance: NAD, awake alert Eye: PERRL, anicteric sclera ENT: normocephalic atraumatic, moist mucosa Neck: supple, symmetric, no JVD Heart: RRR, no murmur, no gallops, no rubs Respiratory: CTAB, no wheezes, no rales, no ronchi, normal chest expansion, no tachypnea, normal percussion Gastrointestinal: soft, non-tender, non-distended, normal bowel sounds, no palpable masses, no hepatomegaly, no splenomegaly, no bruit Extremities: 1+ LE edema Extremities - other findings: RLE with chronic venous stasis changes, verrucous lesions to RLE Skin: normal turgor Neurological: no new deficit Psychiatric - other findings: AOx1 Hosp A/P (1) Diabetes mellitus, type II, insulin dependent Code(s): E11.9 - TYPE 2 DIABETES MELLITUS WITHOUT COMPLICATIONS; 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 Status: Chronic (2) Hyperlipidemia Code(s): E78.5 - HYPERLIPIDEMIA, UNSPECIFIED Status: Chronic (3) Pulmonary emboli Code(s): I26.99 - OTHER PULMONARY EMBOLISM WITHOUT ACUTE COR PULMONALE Status : Chronic Qualifiers: Chronicity: chronic (4) Acute kidney injury Code(s): N17.9 - ACUTE KIDNEY FAILURE, UNSPECIFIED Status: Acute (5) History of CVA (cerebrovascular accident) Code(s): Z86.73 - PRSNL HX OF TIA (TIA), AND CEREB INFRC W/O RESID DEFICITS Status: Chronic (6) Hypertension Code(s): I10 - ESSENTIAL (PRIMARY) HYPERTENSION Status: Chronic (7) Lymphedema Code(s): I89.0 - LYMPHEDEMA, NOT ELSEWHERE CLASSIFIED Status: Acute - Plan Verrucous Lymphedema of Extremities: Pt presented with erythema and swelling to RLE. Initially thought to be cellulitus and treated with cefepime/zosyn. No leukocytosis, afebrile. Skin with chronic venous stasis changes. No induration. -Elevate extremities -Compression stockings/SCDs Pulmonary Embolism: CTA revealed chronic pulmonary embolism. Pt on home warfarin. Subtherapeutic INR on admission. Bridging with Lovenox. INR today 1.5. -Lovenox bridge -Coumadin, pharmacy to dose -Daily INRs Acute on Chronic Kidney Failure Pt with hx of CKD. Baseline Cr ~1.2. Increasing now to 1.49 this am. Will hold home lasix, lisinopril, and metformin. IVF. -IVF -Hold lasix, lisinopril, metformin -Continue to trend kidney function T2DM: Insulin dependent. On home metformin. Will hold metformin 2/2 JUANCARLOS. -Lantus 20 units -ISS -Hold home metformin HTN: Continue carlita amlodipine, lisinopril, hydralazine, lasix Hyperlipidemia: Continue home atorvastatin 40 mg DVT prophylaxis: on lovenox/coumadin FULL CODE Case discussed with attending physician, Dr. Cruz.
[2020-04-07] MEDS ORDERED: Sodium Chloride 0.9% 500 ML IV SCH (18:00)
[2020-04-07] MEDS: Atorvastatin Calcium 40 MG TAB PO SCH (20:43)
[2020-04-07] MEDS: Insulin Glargine 20 UNITS in Pre-Filled Syringe 1 EACH SC SCH (20:44)
[2020-04-07] MEDS: traZODone HCl 50 MG TAB PO SCH (20:45)
[2020-04-08 04:43] LABS: #Basophils 0.1 thou/uL (0.0-0.2); #Eosinphils 0.3 thou/uL (0.0-0.7); #Lymphocytes 3.3 thou/uL (1.20-3.40); #Monocytes 0.7 thou/uL (0.11-0.59); #Neutrophils 6.5 thou/uL (1.40-6.50); %Basophils 0.5 % (0.0-1.0); %Eosinophils 2.5 % (0.0-10.0); %Lymphocytes 30.2 % (21.0-51.0); %Monocytes 6.7 % (0.0-10.0); Mean Corpuscular HGB CONC 32.2 g/dL (32.0-36.0); Mean Corpuscular Hemoglobin 29.4 pg (27.0-31.0); Mean Corpuscular Volume 91.2 fL (78.0-98.0); Mean Platelet Volume 8.6 fL (7.4-10.4); Platelet Count 341 thou/uL (130-400); RBC Distribution Width 14.3 % (11.5-14.5); White Blood Cell (WBC) Count 10.8 thou/uL (4.8-10.8)
[2020-04-08 05:08] LABS: Anion Gap 15 mmol/L (10-20); BUN (Urea Nitrogen) 19 mg/dL (9.8-20.1); Calc. Creatinine Clearance 79 mL/min (70-130); Calcium 8.9 mg/dL (7.8-10.44); Carbon Dioxide 22 mmol/L (23-31); Chloride 106 mmol/L (98-107); Estimated GFR-MDRD 51; Glucose 130 mg/dL (80-115); Magnesium 1.6 mg/dL (1.6-2.6); Potassium 3.8 mmol/L (3.5-5.1); Sodium 139 mmol/L (136-145)
[2020-04-08 05:15] LABS: Prothrombin Time 22.9 sec (12.0-14.7)
[2020-04-08] MEDS: Ferrous Sulfate 325 MG TAB PO SCH ×2 (08:08→20:34)
[2020-04-08] MEDS: Magnesium Oxide 400 MG TAB PO SCH ×3 (08:10→20:34)
[2020-04-08] MEDS: Multivit, Therapeutic 1 TAB PO SCH (08:11)
[2020-04-08] MEDS: Cholecalciferol 1,000 UNITS (25 MCG) TAB PO SCH (08:12)
[2020-04-08] MEDS: Amlodipine 10 MG TAB PO SCH (08:12)
[2020-04-08] MEDS: hydrALAZINE 25 MG TAB PO SCH (08:12)
[2020-04-08] MEDS: HumaLOG 300 UNITS/3 ML VIAL SC SCH ×3 (08:13→18:03)
[2020-04-08] MEDS: Enoxaparin Sodium 100 MG/ML SYRINGE SC SCH ×2 (08:14→20:32)
[2020-04-08] MEDS: Rivastigmine 1.5 MG CAP PO SCH ×3 (08:15→20:34)
[2020-04-08] MEDS ORDERED: Lisinopril 20 MG TAB PO SCH (09:15)
[2020-04-08 13:42] VITALS: BMI 33.1
[2020-04-08] MEDS: Warfarin Sodium 10 MG TAB PO SCH (16:02)
[2020-04-08] MEDS: Atorvastatin Calcium 40 MG TAB PO SCH (20:32)
[2020-04-08] MEDS: Insulin Glargine 20 UNITS in Pre-Filled Syringe 1 EACH SC SCH (20:32)
[2020-04-08] MEDS: traZODone HCl 50 MG TAB PO SCH (20:34)
[2020-04-09 04:14] LABS: INR-International Normal Ratio 2.4
--- NOTE | 2020-04-09 05:29 | DIS ---
DATE OF ADMISSION: 04/02/2020 DATE OF DISCHARGE: 04/08/2020 MEDICATIONS: Reconciled at discharge. All home medications were continued includin. Potassium chloride 10 mEq p.o. every 2 days. 2. Amlodipine 10 mg daily. 3. Arginaid powder 1 packet daily. 4. Atorvastatin 40 mg p.o. at bedtime. 5. Vitamin D3 of 2000 units p.o. daily. 6. Dextrose gel 15 g p.o. q.i.d. p.r.n. hypoglycemia. 7. Hydralazine 25 mg daily. 8. Lantus SoloStar 30 units SQ at bedtime. 9. Lisinopril 40 mg p.o. daily. 10. Metformin 500 mg p.o. b.i.d. 11. Multivitamin one tablet daily. 12. Exelon 3 mg p.o. t.i.d. 13. Trazodone 75 mg p.o. at bedtime. 14. Ferrous sulfate 325 mg p.o. b.i.d. 15. Magnesium oxide 400 mg p.o. b.i.d. 16. Pantoprazole 40 mg p.o. b.i.d. 17. Warfarin 4 mg on Wednesdays, 6 mg p.o. daily on all other days of the week. 18. Acetaminophen 1000 mg q.6 hours p.r.n. pain. 19. Zofran 4 mg q.6 hours p.r.n. nausea. 20. Magnesium hydroxide 30 mL p.o. q.24 p.r.n. constipation. 21. Glucagon 1 mg IM one p.r.n. hypoglycemia. 22. Loperamide 2 mg p.o. q.6 p.r.n. diarrhea. 23. Tramadol 50 mg p.o. b.i.d. p.r.n. pain. 24. Humalog sliding scale. FINAL DIAGNOSES AT DISCHARGE: 1. Verrucous lymphedema. 2. Hypertension. 3. Hyperlipidemia. 4. Type 2 diabetes mellitus. 5. Chronic pulmonary embolism. 6. Status post cerebrovascular accident with residual and right-sided deficits. HISTORY OF PRESENT ILLNESS: The patient was brought in from [facility] with chief complaints of right lower extremity pain and swelling, lymphedema at baseline who developed erythema and discomfort in the right lower extremity on the day of presentation. She is bedbound due to history of stroke with right-sided deficit, and is A and O x1 at baseline, unable to obtain mental history from the patient due to her mental status. In the emergency department, the patient underwent an EKG, which showed sinus tachycardia with a heart rate of 109. Due to difficulty obtaining IV access and central line was placed in the ED, she was started on IV antibiotics, cefepime and vancomycin. Laboratory studies showed her INR was subtherapeutic and therefore, she was given Lovenox. D-Dimer was elevated; therefore, the patient underwent CT angiogram and was given full-strength Lovenox to cover her possible PE. She is premedicated for possible iodine contrast including Benadryl, Solu-Medrol, and Pepcid. She is admitted for cellulitis and the underwent a venous Doppler in the ED that was negative for DVT and received IV fluids. HOSPITAL COURSE: Ms. Bird is a 64-year-old female with past medical history of CVA with residual right-sided deficits, type 2 diabetes mellitus, iron-deficiency anemia, lymphedema, hypertension, hyperlipidemia, and chronic anticoagulation, who presented to the ED on 04/02/2020 from long term for right lower extremity pain and swelling. The patient is A&Ox1 at baseline and bedbound. In the ER, workup revealed that her INR was subtherapeutic. D-Dimer elevated. CTA performed which showed chronic pulmonary embolism. The patient was restarted on coumadin, bridged with Lovenox while INR is subtherapeutic. The patient was also started on Cefepime and vancomycin for presumed cellulitis. Venous Doppler was negative for DVT. While initially it thought to be cellulitis, the patient's right lower extremity pain and swelling were consistent with chronic venous stasis changes and verrucous lymphedema. RADHA hose and SCD boots encouraged. The patient also developed mild JUANCARLOS with a rise in her creatinine to 1.49, this improved down to 1 after gentle IV fluids. Once therapeutic on warfarin, the patient was determined to be medically stable for discharge back to her nursing facility. The patient was resumed on her prior regimen of Warfarin with 4 mg on Wednesdays and 6 mg on all other days of the week. The patient will need close followup for monitoring of her INRs with the [facility]madin [facility]. LABS AND BAH FINDINGS: CBC; 10.8, 3.4, 10.0, 31.0, platelets 341. Chemistry; sodium 139, potassium 3.8, chloride 106, CO2 of 22, BUN 19, creatinine 10.09, glucose 130, calcium 8.9, magnesium 1.6. TSH 2.88. AST 14, ALT 9, alkaline phosphatase 99. Albumin 3.3. Troponin 0.025. Urinalysis grossly negative. COVID-19 negative. D-Dimer 6.57. INR on presentation 0.08, INR at day of discharge 2.0. IMAGING: Vascular ultrasound done 04/02/2020 showed no evidence of DVT. CTA done on 04/02/2020 showed bilateral segmental and subsegmental pulmonary webs and peripheral eccentric thrombi, likely chronic embolism. No evidence of right heart strain. DIET: The patient may resume warfarin prudent diet, carbohydrate consistent diet, and heart healthy diet. ACTIVITY: Activity as tolerated and the patient is bedbound. CODE STATUS: Full code. DISCHARGE DISPOSITION: Back to long term. FOLLOWUP: The patient will follow up with [facility]madin Clinic in approximately 3 days after discharge and with primary care physician 1 week after discharge. TIME SPENT: Time spent preparing discharge paperwork less than 30 minutes. Case discussed with attending physician, Dr. Cruz. Job ID: [id number] [facility]
[2020-04-09] MEDS: HumaLOG 300 UNITS/3 ML VIAL SC PRN ×2 (06:18→12:01)
[2020-04-09] MEDS: Amlodipine 10 MG TAB PO SCH (08:19)
[2020-04-09] MEDS: Enoxaparin Sodium 100 MG/ML SYRINGE SC SCH (08:19)
[2020-04-09] MEDS: Cholecalciferol 1,000 UNITS (25 MCG) TAB PO SCH (08:20)
[2020-04-09] MEDS: Magnesium Oxide 400 MG TAB PO SCH (08:20)
[2020-04-09] MEDS: Ferrous Sulfate 325 MG TAB PO SCH (08:20)
[2020-04-09] MEDS: Rivastigmine 1.5 MG CAP PO SCH (08:21)
[2020-04-09] MEDS: hydrALAZINE 25 MG TAB PO SCH (08:21)
[2020-04-09] MEDS: Multivit, Therapeutic 1 TAB PO SCH (08:21)
[2020-04-09] MEDS: HumaLOG 300 UNITS/3 ML VIAL SC SCH ×2 (08:22→12:00)
[2020-04-09] MEDS ORDERED: Lisinopril 20 MG TAB PO SCH (09:00)
[2020-04-09] MEDS: Potassium Chloride 10 MEQ TAB PO SCH (11:10)
[2020-04-09 11:16] VITALS: TEMP 99.1
[2020-04-09 11:23] VITALS: BP 136/76
[2020-04-09] MEDS ORDERED: Enoxaparin Sodium 100 MG/ML SYRINGE SC SCH (21:00)
--- NOTE | 2020-04-11 14:05 | PQF ---
CLINICAL DOCUMENTATION CLARIFICATION FORM: Dear : Sanjay Cruz MD Date / Time: 04/11/2020 Please exercise your independent, professional judgment in responding to the clarification form. Clinical indicators are provided on the bottom of this form for your review Please check appropriate box(es) to clarify if the following diagnosis has been ruled in our ruled out: [ ] Ruled in Sepsis [ ] Continue to treat [ ] Resolved [ x ] Ruled out Sepsis [ ] Improving [ ] Cannot rule out diagnosis [ ] Other diagnosis (Please specify if any) [ ] Unable to determine Physician Signature: Date/Time: For continuity of documentation, please document condition throughout progress notes and discharge summary. Thank You. To be completed by CDI/Coding staff for physician review: Present Clinical Indicators - Signs / Symptoms / Labs Results and Location in Medical Record [ x] Sepsis ED provider report 04/02 [ x ] She was admitted for sepsis secondary to cellulitits H&P on 04/02 [ x] EKG showed tachycardia with heart rate of 109. H&P on 04/02 [ x] HR 115, Temp 99.4, WBC 11.8 Present Risk Factors Results and Location in Medical Record [ x] cellulitis H&P on 04/02 [ ] [ ] [ ] Present Treatments Results and Location in Medical Record [ x ] Vancomycin 1.5 gm IV Medications on 04/02 to 04/06 [ ] [ ] [ ] CDS/Agriculture Technician Signature: KR Phone #: Date/Time: 04/11/2020 This is a permanent part of the Medical Record [facility]
== END 2020-04-09 14:08 | DRG 607 ==
LOC: ERS 14:42 → 2NO 17:55
PROVIDERS: ADMIT Internal Medicine; ATTEND Internal Medicine
DX: I89.0 Lymphedema, not elsewhere classified (principal); I27.82 Chronic pulmonary embolism; N17.9 Acute kidney failure, unspecified; I69.351 Hemiplegia and hemiparesis following cerebral infarction affecting right dominant side; D50.0 Iron deficiency anemia secondary to blood loss (chronic); R79.89 Other specified abnormal findings of blood chemistry; E78.00 Pure hypercholesterolemia, unspecified; Z20.828 Contact with and (suspected) exposure to other viral communicable diseases; N18.3 Chronic kidney disease, stage 3 (moderate); E11.22 Type 2 diabetes mellitus with diabetic chronic kidney disease; I12.9 Hypertensive chronic kidney disease with stage 1 through stage 4 chronic kidney disease, or unspecified chronic kidney disease; Z79.899 Other long term (current) drug therapy; Z79.84 Long term (current) use of oral hypoglycemic drugs; Z88.6 Allergy status to analgesic agent; Z79.01 Long term (current) use of anticoagulants
CPT/HCPCS: 36415; 36416; 36556; 71045; 71275; 80048; 80053; 80202; 81003; 81015; 82550; 83605; 83735; 84443; 84484; 85025; 85379; 85610; 85730; 87040; 87086; 87635; 93005; 96365; 96366; 96367; 96368; 96372; 96375; 96376; J0692; J1200; J1650; J1815; J2930; J3010; J3370; J3490; Q9967; S0028; U0003